=== PATIENT | male | born 1945 | race Caucasian/White ===

== ENCOUNTER 2018-04-04 12:46 | Emergency (ER) | payer OTHER ==
[2018-04-04 13:32] LABS: Absolute Lymphocytes (CBC) 1.8 K/uL (0.7-4.9); Absolute Monocytes 0.6 K/uL (0.1-1.3); Absolute Neutrophil 6.8 K/uL (1.8-8.0); Basophils % 0.6 % (0-1.3); Eosinophils % 2.7 % (0-4.4); Hematocrit 41.6 % (39.6-49.0); Lymphocytes % 18.6 % (15.3-44.8); MPV 7.5 fL (7.6-11.3)
--- NOTE | 2018-04-04 13:32 | RAD REPORT ---
EXAM DESCRIPTION: Evangelist Single View04/04/2018 1:21 pm CLINICAL HISTORY: Chest pain COMPARISON: none FINDINGS: The lungs appear clear of acute infiltrate. The heart is normal size IMPRESSION: No acute abnormalities displayed If patient's symptoms persist PA and lateral chest series recommended
[2018-04-04 13:57] LABS: ALT/SGPT 42 U/L (12-78); AST/SGOT 31 U/L (15-37); Albumin 3.6 g/dL (3.4-5.0); Alkaline Phosphatase 134 U/L (45-117); BUN Blood Urea Nitrogen 12 mg/dL (7-18); Bicarbonate 31 mmol/L (21-32); Bilirubin Direct 0.1 mg/dL (0-0.2); Bilirubin Total 0.3 mg/dL (0.2-1.0); Glucose Level 78 mg/dL (74-106); Magnesium 1.7 mg/dL (1.8-2.4); NT PRO-BNP 39 pg/mL (<125); Potassium 4.4 mmol/L (3.5-5.1); Protein, Total 7.6 g/dL (6.4-8.2); Sodium Level 143 mmol/L (136-145); Troponin (Emerg Dept Use Only) < 0.02 ng/mL (0.0-0.045)
[2018-04-04 14:12] LABS: Urine Blood NEGATIVE (NEG); Urine Glucose NEGATIVE (NEG); Urine Protein NEGATIVE (NEG); Urine pH 7.5 (5.0-7.0)
--- NOTE | 2018-04-04 14:33 | EDPHYS ---
Physician Documentation [facility] Name: Richard Artis Age: 72 yrs Sex: Male : 1945 Arrival Date: 04/04/2018 Time: 12:50 Bed 6 Private MD: ED Physician Jose Angel Alonso HPI: 04/04 13:00 This 72 yrs old Male presents to ER via EMS with complaints of Chest Pain > pm1 31 y/o. 13:00 The patient or guardian reports chest pain that is located primarily in the anterior pm1 aspect of left upper chest. Onset: 2 week(s) ago. The pain does not radiate. Associated signs and symptoms: Pertinent negatives: abdominal pain, cough, diaphoresis, dizziness, headache, nausea, shortness of breath, vomiting. The chest pain is described as muscle twitching/cramping. Duration: The patient or guardian reports multiple episodes, that have now resolved. Severity of pain: in the emergency department the pain has resolved is a 0 / 10. The patient has been recently seen by a physician: the patient's primary care provider, for apparently unrelated complaints, medication refill. Patient with left sided chest pain for the past two weeks that is improved with thumping his chest with right hand. Historical: - Allergies: 14:13 PENICILLINS; aj 14:13 Sulfa (Sulfonamide Antibiotics); aj - Home Meds: 14:13 amlodipine 10 mg tab 1 tab once daily [Active]; atorvastatin 40 mg oral tab 1 tab once aj daily [Active]; cyclobenzaprine 10 mg Oral tab nightly [Active]; diclofenac sodium 50 mg oral TbEC 1 tab 3 times per day [Active]; duloxetine 40 mg oral cpDR 2 caps once daily [Active]; finasteride 5 mg oral tab 1 tab once daily [Active]; gabapentin 300 mg oral cap 3 caps 3 times per day [Active]; hydralazine 25 mg Oral tab three times a day [Active]; hydroxyzine HCl 25 mg Oral tab 1 tab nightly [Active]; Insulin Glargine Sub-Q [Active]; Novolog 100 unit/mL Sub-Q soln [Active]; lisinopril 40 mg Oral tab 1 tab once daily [Active]; metformin 850 mg Oral tab 1 tab 3 times per day [Active]; metoprolol tartrate 50 mg Oral tab 1 tab 2 times per day [Active]; omeprazole 20 mg Oral cpDR 1 cap once daily [Active]; polyethylene glycol 3350 17 gram/dose oral powd once daily [Active]; tamsulosin 0.4 mg oral cp24 1 cap once daily [Active]; aspirin 81 mg Oral TbEC 1 tab once daily [Active]; - PMHx: 14:13 GERD; BPH; constipation; PTSD; Chronic pain; Diabetes - IDDM; Hypertension; Depression; aj Hidradenitis Suppurativa; Neuropathy; - Immunization history:: Adult Immunizations up to date. - Social history:: Smoking status: Patient uses tobacco products, smokes one-half pack cigarettes per day. - Ebola Screening: : Patient negative for fever greater than or equal to 101.5 degrees Fahrenheit, and additional compatible Ebola Virus Disease symptoms Patient denies exposure to infectious person Patient denies travel to an Ebola-affected area in the 21 days before illness onset No symptoms or risks identified at this time. ROS: 15:00 Constitutional: Negative for fever, chills, and weight loss, Eyes: Negative for injury, pm1 pain, redness, and discharge, ENT: Negative for injury, pain, and discharge, Neck: Negative for injury, pain, and swelling. 15:00 Respiratory: Negative for shortness of breath, cough, wheezing, and pleuritic chest pain, Abdomen/GI: Negative for abdominal pain, nausea, vomiting, diarrhea, and constipation, Back: Negative for injury and pain, : Negative for injury, bleeding, discharge, and swelling, MS/Extremity: Negative for injury and deformity, Skin: Negative for injury, rash, and discoloration, Neuro: Negative for headache, weakness, numbness, tingling, and seizure. 15:00 Cardiovascular: Positive for chest pain, Negative for edema, orthopnea, palpitations. Exam: 15:00 Constitutional: This is a well developed, well nourished patient who is awake, alert, pm1 and in no acute distress. Head/Face: Normocephalic, atraumatic. Eyes: Pupils equal round and reactive to light, extra-ocular motions intact. Lids and lashes normal. Conjunctiva and sclera are non-icteric and not injected. Cornea within normal limits. Periorbital areas with no swelling, redness, or edema. ENT: Nares patent. No nasal discharge, no septal abnormalities noted. Tympanic membranes are normal and external auditory canals are clear. Oropharynx with no redness, swelling, or masses, exudates, or evidence of obstruction, uvula midline. Mucous membranes moist. Neck: Trachea midline, no thyromegaly or masses palpated, and no cervical lymphadenopathy. Supple, full range of motion without nuchal rigidity, or vertebral point tenderness. No Meningismus. 15:00 Cardiovascular: Regular rate and rhythm with a normal S1 and S2. No gallops, murmurs, or rubs. Normal PMI, no JVD. No pulse deficits. Respiratory: Lungs have equal breath sounds bilaterally, clear to auscultation and percussion. No rales, rhonchi or wheezes noted. No increased work of breathing, no retractions or nasal flaring. Abdomen/GI: Soft, non-tender, with normal bowel sounds. No distension or tympany. No guarding or rebound. No evidence of tenderness throughout. Back: No spinal tenderness. No costovertebral tenderness. Full range of motion. Skin: Warm, dry with normal turgor. Normal color with no rashes, no lesions, and no evidence of cellulitis. MS/ Extremity: Pulses equal, no cyanosis. Neurovascular intact. Full, normal range of motion. 15:00 Chest/axilla: Inspection: normal, Palpation: tenderness, that is mild, of the anterior aspect of left upper chest, that totally reproduces the patient's complaints. 15:00 Neuro: Orientation: is normal, Motor: is normal, moves all fours, Gait: is steady, at a normal pace, without difficulty. Vital Signs: 12:53 BP 145 / 80; Pulse 77; Resp 19; Temp 97.7; Pulse Ox 100% on R/A; Pain 6/10; sg 14:13 BP 147 / 73; Pulse 56; Resp 20; Pulse Ox 95% on R/A; aj MDM: 12:52 Patient medically screened. pm1 14:31 Data reviewed: vital signs. Data interpreted: Pulse oximetry: on room air is 100 %. pm1 Interpretation: normal. Counseling: I had a detailed discussion with the patient and/or guardian regarding: the historical points, exam findings, and any diagnostic results supporting the discharge/admit diagnosis, lab results, radiology results, the need for outpatient follow up, to return to the emergency department if symptoms worsen or persist or if there are any questions or concerns that arise at home. 04/04 12:53 Order name: Basic Metabolic Panel; Complete Time: 14:02 pm1 04/04 12:53 Order name: CBC with Diff; Complete Time: 13:54 pm1 04/04 12:53 Order name: LFT's; Complete Time: 14:02 pm1 04/04 12:53 Order name: Magnesium; Complete Time: 14:02 pm1 04/04 12:53 Order name: NT PRO-BNP; Complete Time: 14:02 pm1 04/04 12:53 Order name: PT-INR; Complete Time: 14:21 pm1 04/04 12:53 Order name: Troponin (emerg Dept Use Only); Complete Time: 14:02 pm1 04/04 12:53 Order name: XRAY Chest (1 view); Complete Time: 13:54 pm1 04/04 12:53 Order name: EKG; Complete Time: 12:54 pm1 04/04 12:53 Order name: Cardiac monitoring; Complete Time: 13:35 pm1 04/04 12:53 Order name: EKG - Nurse/Tech; Complete Time: 13:35 pm1 04/04 12:53 Order name: IV Saline Lock; Complete Time: 13:35 pm1 04/04 13:37 Order name: Urine Dipstick--Ancillary (enter results); Complete Time: 14:21 eb 04/04 14:28 Order name: Glucose, Ancillary Testing; Complete Time: 14:31 EDMS 04/04 12:53 Order name: Labs collected and sent; Complete Time: 13:35 pm1 04/04 12:53 Order name: O2 Per Protocol; Complete Time: 13:35 pm1 04/04 12:53 Order name: O2 Sat Monitoring; Complete Time: 13:35 pm1 Administered Medications: No medications were administered Disposition: 04/04/18 14:32 Discharged to Home. Impression: Chest pain, unspecified. - Condition is Stable. - Discharge Instructions: Nonspecific Chest Pain. - Medication Reconciliation Form, Thank You Letter form. - Follow up: Emergency Department; When: As needed; Reason: Worsening of condition. Follow up: Private Physician; When: 2 - 3 days; Reason: Recheck today's complaints, Continuance of care, Re-evaluation by your physician. - Problem is new. - Symptoms have improved. Addendum: 04/07/2018 07:48 Co-signature as Attending Physician, Jose Angel Alonso MD I agree with the assessment and k dr plan of care. Signatures: Dispatcher [employer] EDMS Sam Hou RN RN sg Myers, Amanda, RN RN aj Rittger, Kevin, MD MD [facility] Augusto Ochoa, LIFTS AND CRANES INSPECTOR LIFTS AND CRANES INSPECTOR pm1 Corrections: (The following items were deleted from the chart) 04/04 14:49 14:32 04/04/2018 14:32 Discharged to Home. Impression: Chest pain, unspecified. sg Condition is Stable. Forms are Medication Reconciliation Form, Thank You Letter, Antibiotic Education, Prescription Opioid Use. Follow up: Emergency Department; When: As needed; Reason: Worsening of condition. Follow up: Private Physician; When: 2 - 3 days; Reason: Recheck today's complaints, Continuance of care, Re-evaluation by your physician. Problem is new. Symptoms have improved. pm1
--- NOTE | 2018-04-04 14:33 | ER ---
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 Transition of care: patient was not received from another setting of care. Onset of symptoms was April 04, 2018. Risk Assessment: Do you want to hurt yourself or someone else? Patient reports no desire to harm self or others. Initial Sepsis Screen: Does the patient meet any 2 criteria? No. Patient's initial sepsis screen is negative. Does the patient have a suspected source of infection? No. Patient's initial sepsis screen is negative. Care prior to arrival: None. 12:51 Method Of Arrival: EMS: [facility] 12:51 Acuity: JOANN 3 sg Historical: - Allergies: 14:13 PENICILLINS; aj 14:13 Sulfa (Sulfonamide Antibiotics); aj - Home Meds: 14:13 amlodipine 10 mg tab 1 tab once daily [Active]; atorvastatin 40 mg oral tab 1 tab once aj daily [Active]; cyclobenzaprine 10 mg Oral tab nightly [Active]; diclofenac sodium 50 mg oral TbEC 1 tab 3 times per day [Active]; duloxetine 40 mg oral cpDR 2 caps once daily [Active]; finasteride 5 mg oral tab 1 tab once daily [Active]; gabapentin 300 mg oral cap 3 caps 3 times per day [Active]; hydralazine 25 mg Oral tab three times a day [Active]; hydroxyzine HCl 25 mg Oral tab 1 tab nightly [Active]; Insulin Glargine Sub-Q [Active]; Novolog 100 unit/mL Sub-Q soln [Active]; lisinopril 40 mg Oral tab 1 tab once daily [Active]; metformin 850 mg Oral tab 1 tab 3 times per day [Active]; metoprolol tartrate 50 mg Oral tab 1 tab 2 times per day [Active]; omeprazole 20 mg Oral cpDR 1 cap once daily [Active]; polyethylene glycol 3350 17 gram/dose oral powd once daily [Active]; tamsulosin 0.4 mg oral cp24 1 cap once daily [Active]; aspirin 81 mg Oral TbEC 1 tab once daily [Active]; - PMHx: 14:13 GERD; BPH; constipation; PTSD; Chronic pain; Diabetes - IDDM; Hypertension; Depression; aj Hidradenitis Suppurativa; Neuropathy; - Immunization history:: Adult Immunizations up to date. - Social history:: Smoking status: Patient uses tobacco products, smokes one-half pack cigarettes per day. - Ebola Screening: : Patient negative for fever greater than or equal to 101.5 degrees Fahrenheit, and additional compatible Ebola Virus Disease symptoms Patient denies exposure to infectious person Patient denies travel to an Ebola-affected area in the 21 days before illness onset No symptoms or risks identified at this time. Screenin:14 Abuse screen: Denies threats or abuse. Denies injuries from another. Nutritional aj screening: No deficits noted. Tuberculosis screening: No symptoms or risk factors identified. Fall Risk None identified. Assessment: 14:00 General: Appears in no apparent distress. comfortable, Behavior is calm, cooperative, aj appropriate for age. Pain: Complains of pain in chest Pain does not radiate. Pain began suddenly, 30 min ago. Neuro: Level of Consciousness is awake, alert, obeys commands, Oriented to person, place, time, situation, Appropriate for age. Cardiovascular: Reports chest pain, Capillary refill < 3 seconds in bilateral fingers Patient's skin is warm and dry. Rhythm is regular. Respiratory: Reports cough that is Airway is patent Respiratory effort is even, unlabored, Respiratory pattern is regular, symmetrical. Derm: Skin is intact, is healthy with good turgor, Skin is pink, warm \\T\\ dry. normal. Vital Signs: 12:53 BP 145 / 80; Pulse 77; Resp 19; Temp 97.7; Pulse Ox 100% on R/A; Pain 6/10; sg 14:13 BP 147 / 73; Pulse 56; Resp 20; Pulse Ox 95% on R/A; aj ED Course: 12:50 Patient arrived in ED. sg 12:52 Augusto Ochoa NP is PHCP. pm1 12:52 Jose Angel Alonso MD is Attending Physician. pm1 12:53 Triage completed. sg 12:53 Arm band placed on. sg 13:15 Missed attempt(s): 20 gauge in right forearm. Bleeding controlled, band aid applied, dh3 catheter tip intact. 13:17 EKG done, by earth science technician. reviewed by Augusto Ochoa NP. [facility] 13:17 Missed attempt(s): 22 gauge in right hand. Bleeding controlled, band aid applied, dh3 catheter tip intact. 13:20 Initial lab(s) drawn, by tx, sent to lab. Inserted saline lock: 22 gauge in left sg forearm, using aseptic technique. Blood collected. 13:21 XRAY Chest (1 view) In Process Unspecified. EDMS 13:30 Tabby Morales, RN is Primary Nurse. aj 13:33 Urine collected: clean catch specimen, clear. 3 14:14 Patient has correct armband on for positive identification. 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 Pulse aj ox on. NIBP on. 14:14 Patient maintains SpO2 saturation greater than 95% on room air. aj 14:50 No provider procedures requiring assistance completed. IV discontinued, intact, aj bleeding controlled, No redness/swelling at site. Pressure dressing applied. Administered Medications: No medications were administered Outcome: 14:32 Discharge ordered by MD. pm1 14:49 Patient left the ED. sg 14:50 Discharged to home ambulatory. aj 14:50 Condition: good 14:50 Discharge instructions given to patient, Instructed on discharge instructions, follow up and referral plans. Demonstrated understanding of instructions, follow-up care, medications. Signatures: Dispatcher [employer] EDMS Sam Hou RN RN sg Myers, Amanda, Augusto Dickinson RN, NP NAPHTHALENE OPERATOR HELPER pm1 Symone Hernandez 3 Tierra Ross [facility]
--- NOTE | 2018-04-04 16:17 | EKG ---
Test Date: 2018-04-04 Test Time: 13:01:29 Inside Channel Account Manager: SHEYLA MEASUREMENT RESULTS: Intervals: Rate: 67 PA: 164 QRSD: 142 QT: 470 QTc: 496 Cecil: P: 20 PA: 164 QRS: -62 T: 4 INTERPRETIVE STATEMENTS: Sinus rhythm with premature atrial complexes Left axis deviation Right bundle branch block Minimal voltage criteria for LVH, may be normal variant Abnormal ECG No previous ECG available for comparison Electronically Signed On 04-04-18 16:16:32 PRODUCTION EDITOR by Heladio Duggan
== END 2018-04-04 14:49 | disposition home or self-care (01) ==
LOC: ER 12:46
DX: R07.9 Chest pain, unspecified (principal); F17.210 Nicotine dependence, cigarettes, uncomplicated; I10 Essential (primary) hypertension; E11.9 Type 2 diabetes mellitus without complications; F43.10 Post-traumatic stress disorder, unspecified; F32.9 Major depressive disorder, single episode, unspecified; Z79.82 Long term (current) use of aspirin; Z79.4 Long term (current) use of insulin; Z88.0 Allergy status to penicillin; Z88.2 Allergy status to sulfonamides
CPT/HCPCS: 36415; 71045; 80048; 80076; 81003; 82962; 83735; 83880; 84484; 85025; 85610; 93005; 99285

== ENCOUNTER 2023-11-10 03:08 | Inpatient (IN) | payer OTHER ==
[2023-11-10] MEDS ORDERED: NITROGLYCERIN 0.4 MG/TAB SL ONE (03:25)
[2023-11-10 03:46] LABS: PT Prothrombin Time 11.4 SECONDS (9.4-12.5); Protime INR 1.02
[2023-11-10 03:48] LABS: Absolute Eosinophils 1.7 K/uL (0-0.5); Absolute Lymphocytes (CBC) 2.6 K/uL (0.7-4.9); Absolute Monocytes 0.6 K/uL (0.1-1.3); Absolute Neutrophil 4.1 K/uL (1.8-8.0); Basophils % 0.5 % (0-1.3); Eosinophils % 18.6 % (0-4.4); Hematocrit 42.5 % (39.6-49.0); Lymphocytes % 28.9 % (15.3-44.8); MCH 29.9 pg (27.0-35.0); MCHC 32.8 g/dL (32.0-36.0); MCV 91.1 fL (80-100); Monocytes % 6.8 % (3.3-12.3); Neutrophils % 45.2 % (41.7-73.7); Platelets 183 thou/uL (152-406); RBC Red Blood Cell Count 4.67 M/uL (4.33-5.43); Red Cell Distribution Width 16.1 % (12.1-15.2)
[2023-11-10 03:59] LABS: ALT/SGPT 37 U/L (16-61); AST/SGOT 44 U/L (15-37); Albumin 3.1 g/dL (3.4-5.0); Albumin/Globulin Ratio 0.8 (1.1-1.8); Alkaline Phosphatase 145 U/L (45-117); Anion Gap 12.6 mEq/L (5.0-15.0); BUN Blood Urea Nitrogen 30 mg/dL (7-18); Bicarbonate 19 mEq/L (21-32); Bilirubin Total 0.3 mg/dL (0.2-1.0); Globulin 4.1 g/dL (2.3-3.5); Glomerular Filtration Rate 49 ml/min (=/>90); Glucose Level 106 mg/dL (74-106); NT PRO-BNP 862 pg/mL (<450); Potassium 4.6 mEq/L (3.5-5.1); Protein, Total 7.2 g/dL (6.4-8.2); Sodium Level 139 mEq/L (136-145)
[2023-11-10 04:05] LABS: Bilirubin Direct < 0.2 mg/dL (0-0.2); Bilirubin Indirect, Calculated 0.1 mg/dL (0.2-0.8)
[2023-11-10 04:07] LABS: Troponin High Sensitivity 2975.3 pg/mL (<58.9)
[2023-11-10] MEDS ORDERED: HEPARIN/D5W 25,000 UNIT/500 ML BAG IV ONE (04:23)
[2023-11-10] MEDS ORDERED: HEPARIN 5000 UNIT/ML 1 ML VIAL ONE (04:23)
[2023-11-10 04:32] LABS: Blood Morphology Comment NOT SEEN (NOT SEEN); Platelet Estimate ADEQ; White Blood Cell Scan OK (OK)
[2023-11-10] MEDS ORDERED: ACETAMINOPHEN 500 MG TAB PO PRN (04:38)
[2023-11-10] MEDS ORDERED: ONDANSETRON 4 MG/2 ML VIAL IV PRN (04:38)
[2023-11-10] MEDS ORDERED: NITROGLYCERIN 0.4 MG/TAB SL PRN (04:38)
--- NOTE | 2023-11-10 04:49 | EDPHYS ---
Physician Documentation [facility] Name: Richard Artis Age: 77 yrs Sex: Male : 1945 Arrival Date: 11/10/2023 Time: 03:08 Bed 8 Private MD: ED Physician Raymond Aggarwal HPI: 11/09 03:47 This 77 yrs old Male presents to ER via Ambulatory with complaints of Chest Pain. rt 03:47 Patient presents to the ED with substernal chest pain rating to the jaw started about 1 rt hour prior to arrival. Patient denies aggravating alleviating factors. Denies other acute complaints, symptoms are moderate in severity.. Historical: - Allergies: 03:37 PENICILLINS; vc1 03:37 Sulfa (Sulfonamide Antibiotics); vc1 - PMHx: 03:37 BPH; Chronic pain; constipation; Depression; Diabetes - IDDM; GERD; Hidradenitis vc1 Suppurativa; Hypertension; neuropathy; PTSD; - Immunization history:: Client reports receiving the 2nd dose of the Covid vaccine. - Infectious Disease History:: Denies. - Social history:: Smoking status: Patient reports the use of cigarette tobacco products, smokes one pack cigarettes per day. - Family history:: not pertinent. ROS: 03:47 Constitutional: Negative for fever, chills, and weight loss, Respiratory: Negative for rt shortness of breath, cough, wheezing, and pleuritic chest pain, Abdomen/GI: Negative for abdominal pain, nausea, vomiting, diarrhea, and constipation, MS/Extremity: Negative for injury and deformity, Skin: Negative for injury, rash, and discoloration, Neuro: Negative for headache, weakness, numbness, tingling, and seizure, 03:47 Cardiovascular: Positive for chest pain, Negative for edema, Exam: 03:11 ECG was reviewed by the Attending Physician. rt 03:47 Constitutional: This is a well developed, well nourished patient who is awake, alert, rt and in no acute distress. Head/Face: Normocephalic, atraumatic. Chest/axilla: Normal chest wall appearance and motion. Nontender with no deformity. No lesions are appreciated. Cardiovascular: Regular rate and rhythm with a normal S1 and S2. No gallops, murmurs, or rubs. Normal PMI, no JVD. No pulse deficits. Respiratory: Lungs have equal breath sounds bilaterally, clear to auscultation and percussion. No rales, rhonchi or wheezes noted. No increased work of breathing, no retractions or nasal flaring. Abdomen/GI: Soft, non-tender, with normal bowel sounds. No distension or tympany. No guarding or rebound. No evidence of tenderness throughout. Skin: Warm, dry with normal turgor. Normal color with no rashes, no lesions, and no evidence of cellulitis. MS/ Extremity: Pulses equal, no cyanosis. Neurovascular intact. Full, normal range of motion. Neuro: Awake and alert, GCS 15, oriented to person, place, time, and situation. Cranial nerves II-XII grossly intact. Motor strength 5/5 in all extremities. Sensory grossly intact. Cerebellar exam normal. Normal gait. 03:47 ECG was reviewed by the Attending Physician. Vital Signs: 03:35 BP 156 / 11; Pulse 79; Resp 16; Temp 98; Pulse Ox 100% ; Weight 110 kg (M); Height 6 vc1 ft. 0 in. ; Pain 10/10; 04:07 BP 112 / 58; Pulse 72; Resp 16; Pulse Ox 95% on R/A; iw 05:00 BP 108 / 76; Pulse 70; Resp 16; Pulse Ox 95% ; jj7 03:35 Body Mass Index 32.89 (110.00 kg, 182.88 cm) vc1 03:35 Pain Scale: Adult vc1 MDM: 03:13 Patient medically screened. rt 05:54 Differential diagnosis: abnormal EKG, acute myocardial infarction, coronary artery rt disease congestive heart failure. HEART Score: History: Highly Suspicious (2), ECG: Non specific repolarization disturbance / LBTB / PM (1), Age: > or = 65 years (2), Risk Factors: > or = 3 Risk factors for atherosclerotic disease (2), Troponin: > or = 3 x Normal Limit (2), Total Score = 9. The patient was not given aspirin in the Emergency Department. Patient reports taking aspirin within the past 24 hours. Data reviewed: vital signs, nurses notes, lab test result(s), EKG, radiologic studies. Consideration of Admission/Observation Patient was admitted/placed on observation. Management of patient was discussed with the following: Emblem Fuser Tender: Discussed with cardiology on-call, says is okay to admit patient here, will start heparinization. I considered the following discharge prescriptions or medication management in the emergency department Medications were administered in the Emergency Department. See MAR. Independent interpretation of the following test(s) in the Emergency Department X-Ray: My interpretation is No edema seen on interpretation of x-ray images. Test considered but Not performed: CT: Low suspicion for PE, CT angiogram not indicated. Care significantly affected by the following chronic conditions: Diabetes. Counseling: I had a detailed discussion with the patient and/or guardian regarding the historical points, exam findings, and any diagnostic results supporting the discharge/admit diagnosis, lab results, radiology results, the need for further work-up and treatment in the hospital. Response to treatment: the patient's symptoms have markedly improved after treatment. 11/09 03:14 Order name: Basic Metabolic Panel; Complete Time: 04:13 rt 11/09 03:14 Order name: CBC with Diff; Complete Time: 07:00 rt 11/09 03:14 Order name: LFT's; Complete Time: 04:13 rt 11/09 03:14 Order name: Magnesium; Complete Time: 04:13 rt 11/09 03:14 Order name: NT PRO-BNP; Complete Time: 04:13 rt 11/09 03:14 Order name: PT-INR; Complete Time: 04:13 rt 11/09 03:14 Order name: Troponin HS; Complete Time: 04:13 rt 11/09 04:20 Order name: Ptt, Activated; Complete Time: 07:00 rt 11/09 04:32 Order name: CBC Smear Scan; Complete Time: 07:00 EDMS 11/09 04:45 Order name: Magnesium EDMS 11/09 04:45 Order name: Phosphorus EDMS 11/09 04:45 Order name: Urinalysis w/ reflexes EDMS 11/09 04:45 Order name: Basic Metabolic Panel EDMS 11/09 04:45 Order name: Basic Metabolic Panel EDMS 11/09 04:45 Order name: CBC with Automated Diff EDMS 11/09 04:45 Order name: CBC with Automated Diff EDMS 11/09 04:45 Order name: Lipid Profile EDMS 11/09 04:45 Order name: Lipid Profile EDMS 11/09 04:45 Order name: Troponin High Sensitivity EDMS 11/09 04:45 Order name: Troponin High Sensitivity EDMS 11/09 04:45 Order name: Troponin High Sensitivity EDMS 11/09 04:45 Order name: Troponin High Sensitivity EDMS 11/09 05:10 Order name: Hemoglobin A1c EDMS 11/09 07:40 Order name: Glucose, Ancillary Testing EDMS 11/09 08:15 Order name: Glucose, Ancillary Testing EDMS 11/09 09:16 Order name: Ptt, Activated aa5 11/09 09:41 Order name: PTT, Activated Partial Thromb EDMS 11/09 03:14 Order name: XRAY Chest (1 view) rt 11/09 05:14 Order name: Echo with Doppler EDMS 11/09 04:45 Order name: CONS Physician Consult EDMS 11/09 03:14 Order name: Cardiac monitoring; Complete Time: 03:23 rt 11/09 03:14 Order name: EKG - Nurse/Tech; Complete Time: 03:23 rt 11/09 03:14 Order name: IV Saline Lock; Complete Time: 03:27 rt 11/09 03:14 Order name: Labs collected and sent; Complete Time: 03:27 rt 11/09 03:14 Order name: O2 Per Protocol; Complete Time: 03:27 rt 11/09 03:14 Order name: O2 Sat Monitoring; Complete Time: 03:27 rt EC:11 Rate is 99 beats/min. Rhythm is regular, Normal Sinus Rhythm with No ectopy, Right rt bundle branch block, Artifact limits interpretation. Left axis deviation noted. QRS interval is normal. QT interval is normal. No Q waves. 03:17 Rate is 82 beats/min. Rhythm is regular, Normal Sinus Rhythm with No ectopy, Right rt bundle branch block. Left axis deviation noted. QRS interval is normal. QT interval is normal. No Q waves. Administered Medications: 03:27 Drug: Nitroglycerin Sublingual 0.4 mg Sublingual once; every five minute if needed x3 jj7 Route: Sublingual; 04:20 Follow up: Response: Marked relief of symptoms; Pain is decreased jj7 04:37 Drug: Heparin ([place]-Bolus No thrombolytic) - HEParin IVP 60 units/kg IVP once; Max 5000 jj7 units {Co-Signature: iw (Susana Fofana RN).} Route: IVP; Site: right antecubital; 05:43 Follow up: Response: No adverse reaction jj7 04:37 Drug: Heparin ([place] Drip) 12 units/kg/hr - ([place] [address] units, D5W IV 500 ml) IV at jj7 calculated rate Per protocol; Max initial rate 1000 units/hr {Co-Signature: charleen (Susana Fofana RN).} Route: IV; Rate: calculated rate; Site: right antecubital; Disposition: 05:54 Critical Care:. rt Disposition Summary: 11/10/23 04:48 Hospitalization Ordered Notes: Hospitalization Status: Inpatient Admission rt Provider: Prince Juan Manuel rt Condition: Serious rt Problem: new rt Symptoms: have improved rt Bed/Room Type: Standard rt Location: Telemetry/MedSurg (Inpatient)(11/10/23 10:50) [facility] Room Assignment: [facility](11/10/23 11:04) [facility] Diagnosis - Subsequent non-ST elevation (NSTEMI) myocardial infarction rt Forms: - Medication Reconciliation Form rt - SBAR form rt - Leadership Thank You Letter rt Critical care time excluding procedures: 05:54 Critical care time: Bedside Care: 30 minutes, Consultation: 5 minutes. Total time: 35 rt minutes Signatures: Dispatcher [employer] EDMS Jayy Shaw, REALTIME CAPTIONER-C REALTIME CAPTIONER-Cla1 Julia Mckoy RN RN cg Andrea Cota RN RN ja1 Nida Hernandez RN RN 1 Yovani Suazo RN RN jj7 Raymond Aggarwal MD MD rt Susana Fofana RN Corrections: (The following items were deleted from the chart) 05:28 04:48 Telemetry/MedSurg (Inpatient) rt cg 05:28 04:48 rt cg 10:50 05:28 [facility] ER HOLD cg ja1 10:50 05:28 ERHOLD- cg ja1 11:04 10:50 215 ja1 1
--- NOTE | 2023-11-10 04:49 | ER ---
Nurse's Notes [facility] Name: Richard Artis Age: 77 yrs Sex: Male : 1945 Arrival Date: 11/10/2023 Time: 03:08 Bed 8 Private MD: Diagnosis: Subsequent non-ST elevation (NSTEMI) myocardial infarction Presentation: 11/09 03:35 Chief complaint: Patient states: chest pain that started 1 hr PIT [place]. Coronavirus screen: vc1 Client denies travel out of the [place] in the last 14 days. At this time, the client does not indicate any symptoms associated with coronavirus-19. Ebola Screen: Patient negative for fever greater than or equal to 101.5 degrees Fahrenheit, and additional compatible Ebola Virus Disease symptoms Patient denies exposure to infectious person. Patient denies travel to an Ebola-affected area in the 21 days before illness onset. No symptoms or risks identified at this time. Initial Sepsis Screen: Does the patient meet any 2 criteria? No. Patient's initial sepsis screen is negative. Does the patient have a suspected source of infection? No. Patient's initial sepsis screen is negative. Risk Assessment: Do you want to hurt yourself or someone else? Patient reports no desire to harm self or others. Onset of symptoms was November 10, 2023 at 02:00. 03:35 Method Of Arrival: Ambulatory vc1 03:35 Acuity: JOANN 3 vc1 Triage Assessment: 03:39 General: Appears in no apparent distress. uncomfortable, obese, Behavior is calm, vc1 cooperative, appropriate for age. Pain: Complains of pain in chest Pain radiates to back Pain currently is 10 out of 10 on a pain scale. Quality of pain is described as sharp. EENT: No deficits noted. No signs and/or symptoms were reported regarding the EENT system. Neuro: Level of Consciousness is awake, alert, obeys commands, Oriented to person, place, time, situation, Appropriate for age. Cardiovascular: Reports chest pain, Patient's skin is warm and dry. Chest pain is described as severe, quality is clutching, is located in. Respiratory: Airway is patent Respiratory effort is even, unlabored, Respiratory pattern is regular, symmetrical, Breath sounds are clear bilaterally. GI: Abdomen is round non-distended. : No deficits noted. No signs and/or symptoms were reported regarding the genitourinary system. Derm: Skin is intact, is healthy with good turgor, Skin is dry, Skin is normal, Skin temperature is warm. Musculoskeletal: Circulation, motion, and sensation intact. Range of motion: intact in all extremities. Historical: - Allergies: 03:37 PENICILLINS; vc1 03:37 Sulfa (Sulfonamide Antibiotics); vc1 - PMHx: 03:37 BPH; Chronic pain; constipation; Depression; Diabetes - IDDM; GERD; Hidradenitis vc1 Suppurativa; Hypertension; neuropathy; PTSD; - Immunization history:: Client reports receiving the 2nd dose of the Covid vaccine. - Infectious Disease History:: Denies. - Social history:: Smoking status: Patient reports the use of cigarette tobacco products, smokes one pack cigarettes per day. - Family history:: not pertinent. Screenin:35 [facility] ED Fall Risk Assessment (Adult) History of falling in the last 3 months, vc1 including since admission No falls in past 3 months (0 pts) Confusion or Disorientation No (0 pts) Intoxicated or Sedated No (0 pts) Impaired Gait No (0 pts) Mobility Assist Device Used No (0 pt) Altered Elimination No (0 pt) Score/Fall Risk Level 0 - 2 = Low Risk Oriented to surroundings, Maintained a safe environment, Educated pt \T\ family on fall prevention, incl call for assistance when getting out of bed. Abuse screen: Denies threats or abuse. Nutritional screening: No deficits noted. Tuberculosis screening: No symptoms or risk factors identified. Assessment: 03:40 General: Appears in no apparent distress. comfortable, Behavior is calm, cooperative, jj7 appropriate for age. Pain: Complains of pain in chest Pain currently is 3 out of 10 on a pain scale. Pain: Pain began 1 hour ago. Cardiovascular: Reports chest pain. Vital Signs: 03:35 BP 156 / 11; Pulse 79; Resp 16; Temp 98; Pulse Ox 100% ; Weight 110 kg (M); Height 6 vc1 ft. 0 in. ; Pain 10/10; 04:07 BP 112 / 58; Pulse 72; Resp 16; Pulse Ox 95% on R/A; iw 05:00 BP 108 / 76; Pulse 70; Resp 16; Pulse Ox 95% ; jj7 03:35 Body Mass Index 32.89 (110.00 kg, 182.88 cm) vc1 03:35 Pain Scale: Adult vc1 ED Course: 03:13 Patient arrived in ED. gm2 03:13 Raymond Aggarwal MD is Attending Physician. rt 03:27 Basic Metabolic Panel Sent. jj7 03:28 CBC with Diff Sent. jj7 03:28 LFT's Sent. jj7 03:28 Magnesium Sent. jj7 03:28 NT PRO-BNP Sent. jj7 03:28 PT-INR Sent. jj7 03:28 Troponin HS Sent. jj7 03:34 Inserted saline lock: 20 gauge in right forearm, using aseptic technique. Blood vc1 collected. Flushed with 10 mL NS. 03:35 XRAY Chest (1 view) In Process Unspecified. EDMS 03:37 Triage completed. vc1 03:38 Arm band placed on left wrist. vc1 03:39 Patient has correct armband on for positive identification. Placed in gown. Bed in low vc1 position. Call light in reach. youth nutritional monitor on. Pulse ox on. NIBP on. 03:40 Provided Education on: USE OF CALL DUNBAR. jj7 04:48 Prince Zambrano MD is Hospitalizing Provider. rt 07:02 Report given to JAYLEEN ZIMMER. jj7 07:23 Gonzalez Nair, RN is Primary Nurse. bp 07:33 No provider procedures requiring assistance completed. Patient admitted, IV remains in bp place. Patient maintains SpO2 saturation greater than 95% on room air. Administered Medications: 03:27 Drug: Nitroglycerin Sublingual 0.4 mg Sublingual once; every five minute if needed x3 jj7 Route: Sublingual; 04:20 Follow up: Response: Marked relief of symptoms; Pain is decreased jj7 04:37 Drug: Heparin ([place]-Bolus No thrombolytic) - HEParin IVP 60 units/kg IVP once; Max 5000 jj7 units {Co-Signature: iw (Susana Fofana RN).} Route: IVP; Site: right antecubital; 05:43 Follow up: Response: No adverse reaction jj7 04:37 Drug: Heparin ([place] Drip) 12 units/kg/[place] - ([place] [address] units, D5W IV 500 ml) IV at jj7 calculated rate Per protocol; Max initial rate 1000 units/hr {Co-Signature: charleen (Susana Fofana RN).} Route: IV; Rate: calculated rate; Site: right antecubital; Medication: 03:41 VIS not applicable for this client. vc1 Outcome: 04:48 Decision to Hospitalize by Provider. rt 07:33 Admitted to ER Hold. Please see [facility] for further documentation. bp 07:33 Condition: stable 07:33 Instructed on the need for admit, 11:22 Patient left the ED. bp Signatures: Dispatcher [employer] EDMS Susana Fofana, RN Gonzalez Dooley RN RN bp Nida Hernandez RN RN vc1 Yovani Suazo RN RN jjRaymond eBrman MD MD rt Zuleyka Castro 2 Susana Fofana RN
[2023-11-10] MEDS: NA CHLORIDE 0.9% 1,000 ML IV SCH (05:07)
--- NOTE | 2023-11-10 05:07 | P.HP ---
Certification for Inpatient Patient admitted to: Inpatient With expected LOS: >2 Midnights Practitioner: I am a practitioner with admitting privileges, knowledge of patient current condition, hospital course, and medical plan of care. Services: Services provided to patient in accordance with Admission requirements found in Title 42 Section 412.3 of the Code of Federal Regulations Patient History Date of Service: 11/10/23 Reason for admission: NSTEMI History of Present Illness: And is a 77-year-old male with a past medical history of hypertension and type 2 diabetes mellitus. He presented to the ER complaining of acutely worsening left-sided chest pain radiating to his jaw. Described a 9 out of 10 chest pain that started since the day before admission only to recur today. He has noticed that the chest pain was not letting up and decided to present to the ER. He denies any palpitations, shortness of breath or lower extremity edema. Workup in the ER was significant for a troponin of more than 2500. Patient has evidence of ST depressions involving V1 through V3. He arrived in the ER slightly hypertensive with SBP of 156 mmHg. He has been started on heparin infusion. During my evaluation, his systolic blood pressure was 109. His chest pain has subsided significantly and is now 4 out of 10. Physical Examination - Physical Exam General: Mild distress HEENT: Atraumatic, Normocephalic Neck: Supple Respiratory: Clear to auscultation bilaterally, Normal air movement Cardiovascular: No edema, Normal pulses, Regular rate/rhythm, Normal S1 S2 Neurological: Normal speech - Studies Laboratory Data (last 24 hrs) 11/10/23 11/10/23 11/10/23 03:24 03:24 03:24 WBC 9.20 Hgb 14.0 Hct 42.5 Plt Count 183 PT 11.4 INR 1.02 APTT 36.6 Sodium Potassium BUN Creatinine Glucose Magnesium Total Bilirubin AST ALT Alkaline Phosphatase 11/10/23 03:24 WBC Hgb Hct Plt Count PT INR APTT Sodium 139 Potassium 4.6 BUN 30 H Creatinine 1.48 H Glucose 106 Magnesium 2.0 Total Bilirubin 0.3 AST 44 H ALT 37 Alkaline Phosphatase 145 H Assessment and Plan - Problems (Diagnosis) (1) NSTEMI (non-ST elevated myocardial infarction) Current Visit: Yes Status: Acute (2) HTN (hypertension) Current Visit: Yes Status: Acute (3) Type II diabetes mellitus Current Visit: Yes Status: Acute (4) MAISHA (acute kidney injury) Current Visit: Yes Status: Acute - Plan Assessment This is a 77-year-old male who is being admitted after he presented with chest pain. Patient's been found to have NSTEMI and is now on heparin infusion. NSTEMI MAISHA Hypertension Type 2 diabetes mellitus Plan: Admit inpatient with telemetry Continue heparin infusion as per ACS protocol Will also continue patient on aspirin, atorvastatin and supplemental oxygen Hold off beta-blockers due to borderline blood pressure Follow lipid panel and hemoglobin A1c Cardiology has been consulted by ER Will start gentle IV fluid infusion for possible coronary angiogram Patient is full code - Advance Directives Does patient have a Living Will: No Does patient have a Durable POA for Healthcare: No
[2023-11-10] MEDS: IPRATROPIUM BROM 0.5MG/2.5ML NEB SCH (07:00)
[2023-11-10] MEDS: ALBUTEROL 2.5 MG/3 ML NEB SOL NEB SCH (07:00)
[2023-11-10 07:33] VITALS: BMI 32.8
[2023-11-10] MEDS: ASPIRIN EC 81 MG TAB PO SCH (09:00)
[2023-11-10] MEDS ORDERED: METOPROLOL TAR 50 MG TAB PO SCH (09:00)
[2023-11-10] MEDS ORDERED: GLUCAGON 1 MG/VIAL IM PRN (09:06)
[2023-11-10] MEDS ORDERED: D10W 250 ML IV ONE (09:12)
[2023-11-10] MEDS: D10W 125 ML IV PRN (09:20)
[2023-11-10] MEDS ORDERED: ASPIRIN EC 81 MG TAB PO ONE (09:38)
[2023-11-10 10:01] LABS: Phosphorus 3.6 mg/dL (2.5-4.9)
--- NOTE | 2023-11-10 11:51 | P.CNS ---
Date of Consult: 11/10/23 Chief Complaint: NSTEMI History of Present Illness: Patient with PMH of HTN, DM, HLD and tobacco use, presented with chest pain left sided radiating to the back that started 2 days ago, got worse overnight, no SOB, no palpitations, no syncope. Allergies Penicillins Allergy (Verified 11/10/23 06:05) Hives/Rash Home medications list reviewed: Yes - Past Medical/Surgical History Diabetic: Yes - Social History Smoking Status: Current every day smoker Place of Residence: Home Review of Systems 10-point ROS is otherwise unremarkable Physical Examination Temp Pulse Resp BP Pulse Ox 98 F 72 15 136/80 97 11/10/23 03:35 11/10/23 08:00 11/10/23 08:00 11/10/23 08:00 11/10/23 08:00 General: Alert, In no apparent distress HEENT: Atraumatic, PERRLA, Mucous membr. moist/pink, EOMI, Sclerae nonicteric Neck: Supple, 2+ carotid pulse no bruit, No LAD, Without JVD or thyroid abnormality Respiratory: Clear to auscultation bilaterally, Normal air movement Cardiovascular: Regular rate/rhythm, Normal S1 S2 Gastrointestinal: Normal bowel sounds, No tenderness Musculoskeletal: No tenderness Integumentary: No rashes Neurological: Normal gait, Normal speech, Normal tone, Normal affect Lymphatics: No axilla or inguinal lymphadenopathy Laboratory Data (last 24 hrs) 11/10/23 11/10/23 11/10/23 03:24 03:24 03:24 WBC 9.20 Hgb 14.0 Hct 42.5 Plt Count 183 PT 11.4 INR 1.02 APTT 36.6 Sodium Potassium BUN Creatinine Glucose Magnesium Total Bilirubin AST ALT Alkaline Phosphatase 11/10/23 03:24 WBC Hgb Hct Plt Count PT INR APTT Sodium 139 Potassium 4.6 BUN 30 H Creatinine 1.48 H Glucose 106 Magnesium 2.0 Total Bilirubin 0.3 AST 44 H ALT 37 Alkaline Phosphatase 145 H - Problems (1) MAISHA (acute kidney injury) Current Visit: Yes Status: Acute Plan: gentle hydration. (2) HTN (hypertension) Current Visit: Yes Status: Acute Plan: resume patient home medications. (3) NSTEMI (non-ST elevated myocardial infarction) Current Visit: Yes Status: Acute Plan: NPO after midnight for coronary angiogram in am Heparin drip ACS protocol ASA 81 mg daily High dose statin Get Echo
[2023-11-10] MEDS ORDERED: HEPARIN/D5W 25,000 UNIT/500 ML BAG IV SCH (12:00)
--- NOTE | 2023-11-10 12:20 | P.PN ---
Date of Service: 11/10/23 Pt seen and examined. Pt is a 77yo male with past medical history of hypertension and type 2 diabetes mellitus who presents with chest pain with severity of 9/10. On admission, lab studies show troponin 2550. EKG shows ST depression in V1 and V3. At bedside, the severity of the chest pain improved to 4/10. A/P: NSTEMI: Will trend troponin (2550) Q6h. Continue heparin drip, aspirin and statin. Consulted Cardiology. Will keep pT NPO after midnight for Cardiac cath. MAISHA: Continue iVF, avoid nephrotoxins and monitor renal function. DVT ppx: SCD Code; full
[2023-11-10] MEDS: ATORVASTATIN 80 MG TAB PO SCH (21:18)
[2023-11-10] MEDS: lisinopriL 20 MG TAB PO SCH (21:18)
[2023-11-10] MEDS: HYDROCODONE/APAP 7.5/325 MG TAB PO PRN (21:19)
[2023-11-10] MEDS: GABAPENTIN 300 MG CAP PO SCH (21:37)
[2023-11-11 04:40] LABS: Anion Gap 9.5 mEq/L (5.0-15.0); Potassium 4.5 mEq/L (3.5-5.1)
[2023-11-11 04:55] LABS: Absolute Eosinophils 1.1 K/uL (0-0.5); Absolute Lymphocytes (CBC) 1.9 K/uL (0.7-4.9); Absolute Monocytes 0.7 K/uL (0.1-1.3); Basophils % 0.5 % (0-1.3); Eosinophils % 14.4 % (0-4.4); Hematocrit 40.5 % (39.6-49.0); Hemoglobin 13.1 g/dL (13.6-17.9); Lymphocytes % 24.9 % (15.3-44.8); MCH 29.6 pg (27.0-35.0); MCHC 32.3 g/dL (32.0-36.0); MCV 91.5 fL (80-100); MPV 7.2 fL (7.6-11.3); Monocytes % 8.7 % (3.3-12.3); Neutrophils % 51.5 % (41.7-73.7); Platelets 186 thou/uL (152-406); RBC Red Blood Cell Count 4.42 M/uL (4.33-5.43); Red Cell Distribution Width 16.6 % (12.1-15.2)
[2023-11-11] MEDS: PANTOPRAZOLE 40MG TABLET PO SCH (05:19)
[2023-11-11] MEDS ORDERED: HEPARIN 10,000 UNIT/10 ML VIAL IV ONE (06:37)
[2023-11-11] MEDS ORDERED: LIDOCAINE 1% 20 ML MDV ONE (06:37)
[2023-11-11] MEDS ORDERED: MIDAZOLAM HCL 2 MG/2 ML INJ ONE (06:37)
[2023-11-11] MEDS ORDERED: HEPA 1000U/500MLS 2,000 UNIT/1,000 ML BAG IV ONE (06:37)
[2023-11-11] MEDS ORDERED: FENTANYL CITR 100 MCG/2 ML ONE (06:38)
[2023-11-11] MEDS ORDERED: CLOPIDOGREL 75 MG TABLET ONE (06:38)
[2023-11-11] MEDS ORDERED: HEPARIN 5000 UNIT/ML 1 ML VIAL ONE (06:38)
[2023-11-11] MEDS ORDERED: NA CHLORIDE 0.9% 0 ML ONE (06:38)
[2023-11-11] MEDS ORDERED: ATROPINE SULF 1 MG/10 ML SYR IV ONE (06:38)
[2023-11-11] MEDS ORDERED: ASPIRIN 325 MG TAB ONE (06:39)
[2023-11-11] MEDS ORDERED: TICAGRELOR 90 MG TABLET PO ONE (06:39)
[2023-11-11] MEDS ORDERED: NITROGLYCERIN/D5W 50 MG/250 ML BTL IV ONE (06:40)
--- NOTE | 2023-11-11 08:27 | P.PN ---
Subjective Date of Service: 11/11/23 Chief Complaint: NSTEMI Subjective: No new changes, No C/O voiced, Tolerating diet, Ambulating, Improving Review of Systems 10-point ROS is otherwise unremarkable Physical Examination - Vital Signs Temperature: 97.9 F Blood Pressure: 123/44 Pulse: 67 Respirations: 16 Pulse Ox (%): 96 - Physical Exam General: Alert, In no apparent distress HEENT: Atraumatic, PERRLA, EOMI Neck: Supple, JVD not distended Respiratory: Clear to auscultation bilaterally, Normal air movement Cardiovascular: Regular rate/rhythm, Normal S1 S2 Gastrointestinal: Normal bowel sounds, No tenderness Musculoskeletal: No tenderness Integumentary: No rashes Neurological: Normal speech, Normal tone, Normal affect Lymphatics: No axilla or inguinal lymphadenopathy - Studies Medications List Reviewed: Yes Assessment And Plan - Current Problems (Diagnosis) (1) MAISHA (acute kidney injury) Current Visit: Yes Status: Acute Plan: gentle hydration. (2) HTN (hypertension) Current Visit: Yes Status: Acute Plan: resume patient home medications. 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 Heparin drip ACS protocol ASA 81 mg daily High dose statin Get Echo
[2023-11-11 10:04] VITALS: O2SAT 98
[2023-11-11] MEDS ORDERED: HEPARIN/D5W 25,000 UNIT/500 ML BAG IV SCH (12:00)
[2023-11-11 12:20] VITALS: BP 163/68; TEMP 98
--- NOTE | 2023-11-11 12:50 | EKG ---
Test Date: 2023-11-10 Test Time: 03:17:59 Cnc Manager: JEOVANY MEASUREMENT RESULTS: Intervals: Rate: 82 [place]: QRSD: 154 QT: 422 QTc: 493 [place]: P: [place]: QRS: -68 T: 25 INTERPRETIVE STATEMENTS: Sinus rhythm Left axis deviation Right bundle branch block Minimal voltage criteria for LVH, may be normal variant Abnormal ECG Compared to ECG 04/04/2018 13:01:29 Atrial premature complex(es) no longer present Electronically Signed On 11-11-23 12:47:40 CDT by Zion Lopez
--- NOTE | 2023-11-11 14:48 | P.DS ---
Admission Date: 11/10/23 Discharge Date: 11/11/23 Disposition: TRANSFER TO [facility] Discharge Condition: FAIR Reason for Admission: NSTEMI Brief History of Present Illness: Pt is a 77-year-old male with a past medical history of hypertension and type 2 diabetes mellitus. He presented to the ER complaining of acutely worsening left-sided chest pain radiating to his jaw. Described a 9 out of 10 chest pain that started since the day before admission only to recur today. He has noticed that the chest pain was not letting up and decided to present to the ER. He denies any palpitations, shortness of breath or lower extremity edema. Workup in the ER was significant for a troponin of more than 2500. Patient has evidence of ST depressions involving V1 through V3. He arrived in the ER slightly hypertensive with SBP of 156 mmHg. He has been started on heparin infusion. During my evaluation, his systolic blood pressure was 109. His chest pain has subsided significantly and is now 4 out of 10. Hospital Course: Pt is a 77yo male with past medical history of hypertension and type 2 diabetes mellitus who presented with left sided chest pain radiating to his jaw. The chest pain persisted and pt came to the ER for evaluation. On admission, lab studies showed troponin of more than 2500. There was ST depressions involving V1 through V3 leads on EKG. Pt was admitted for NSTEMI. We gave heparin drip and other cardiac meds. Pt was made NPO for cardiac cath which showed multivessel CAD . Pt was transferred to [place] for CABG. He was in NAD prior to discharge. Vital Signs/Physical Exam: Temp Pulse Resp BP Pulse Ox 98.0 F 77 16 163/68 H 98 11/11/23 12:00 11/11/23 12:00 11/11/23 13:52 11/11/23 12:00 11/11/23 13:52 Laboratory Data at Discharge: WBC 7.80 thou/uL (4.3-10.9) 11/11/23 04:02 Hgb 13.1 g/dL (13.6-17.9) L 11/11/23 04:02 Hct 40.5 % (39.6-49.0) 11/11/23 04:02 Plt Count 186 thou/uL (152-406) 11/11/23 04:02 PT 11.4 SECONDS (9.4-12.5) 11/10/23 03:24 INR 1.02 11/10/23 03:24 APTT 50.1 SECONDS (24.3-36.9) H 11/11/23 04:02 Sodium 144 mEq/L (136-145) D 11/11/23 04:02 Potassium 4.5 mEq/L (3.5-5.1) 11/11/23 04:02 BUN 21 mg/dL (7-18) H 11/11/23 04:02 Creatinine 1.03 mg/dL (0.70-1.30) 11/11/23 04:02 Glucose 51 mg/dL (74-106) L* 11/11/23 04:02 Phosphorus 3.6 mg/dL (2.5-4.9) 11/10/23 09:22 Magnesium 2.0 mg/dL (1.6-2.4) 11/10/23 09:22 Total Bilirubin 0.3 mg/dL (0.2-1.0) 11/10/23 03:24 AST 44 U/L (15-37) H 11/10/23 03:24 ALT 37 U/L (16-61) 11/10/23 03:24 Alkaline Phosphatase 145 U/L (45-117) H 11/10/23 03:24 Triglycerides 109 mg/dL (<150) 11/11/23 04:02 Cholesterol 152 mg/dL (<200) 11/11/23 04:02 HDL Cholesterol 38 mg/dL (40-60) L 11/11/23 04:02 Cholesterol/HDL Ratio 4.00 11/11/23 04:02 Home Medications: Gabapentin 900 mg PO TID 11/10/23 Hydrocodone Bit/Acetaminophen [Hydrocodon-Acetaminoph 7.5-325] 1 each PO BID PRN 11/10/23 Lisinopril [Zestril] 40 mg PO BID 11/10/23 Omeprazole 20 mg PO DAILY 11/10/23 Physician Discharge Instructions: Inpatient transfer to [place] for CABG evaluation Diet: AHA Activity: Fall precautions Followup: Thomas Gutierrez MD [ACTIVE - CAN ADMIT] - 1-2 Weeks Giovanny Estrada DO [Primary Care Provider] - 1-2 Weeks
--- NOTE | 2023-11-11 15:00 | RAD REPORT ---
CLINICAL HISTORY: CHEST PAIN COMPARISON: None. TECHNIQUE: XR CHEST 1 VIEW 11/10/2023 3:14 AM CDT FINDINGS: Cardiac silhouette is normal in size. Lungs are clear without consolidation, atelectasis, mass or minerva ma. There is no pleural effusion. There is no pneumothorax. There are no acute osseous findings. IMPRESSION: Clear lungs. Electronically signed by: Dayton Herrera MD 11/10/2023 03:42 AM CDT RP Transcribed Date/Time: 11/11/2023 2:59 PM
--- NOTE | 2023-11-12 11:29 | OP ---
Date of Procedure: 11/11/2023 Surgeon: Thomas Gutierrez Procedures Performed: 1.Left heart catheterization. 2.Selective coronary angiogram. Indication For Procedure: [id number] NC. Complications: None. Estimated Blood Loss: Less than 50 cc. Access: Right radial, closed by TR band. Sedation Time: 20 minutes with 1 of Versed and 25 of fentanyl. Description Of Procedure: After risks and benefits and alternatives were explained to the patient, p rajeev agreed to proceed with the procedure and signed informed consent. The patient was brought [facility] to the freezer laboratory technician, prepped and draped in sterile fashion. Time-out was performed. Sedation was admi nistered. Next, an ultrasound-guided right radial access was obtained. Gill 4.0 catheter was advan maribel over a J-wire to the LV cavity. LVEDP was obtained. Pullback did not show any gradient. The sa me catheter was used for selective angiogram of the left and right coronary systems and selective ang iogram of the CHARLES artery. At the end of the procedure, catheter was removed over a J-wire, sheath w as removed. TR band was applied. The patient was moved back to recovery in stable condition. Findings: 1.Left main; ostial 30% to 50% disease. 2.LAD; ostial 70% disease with proximal mild luminal irregularities. This was followed by mid 80% d isease and mild luminal irregularities with distal 70% disease. 3.D1 normal. 4.D2; proximal 70% disease. 5.Left circ; mild luminal irregularities. 6.OM1; mid 99% disease. 7.RCA; very tortuous, mid 95% disease, then distal 70% to 80% disease. 8.RPDA; mild luminal irregularities. 9.Left subclavian/CHARLES patent. 10.LVEDP 10 mmHg. Assessment And Plan: Significant LAD, diagonal, OM1, RCA disease. The plan will be transfer for inpatient CABG evaluation. PAMELA/ROBIN Voice ID: [id number] Report ID: [id number]
--- NOTE | 2023-11-14 12:27 | EKG ---
Test Date: 2023-11-10 Test Time: 03:11:44 Charge Poster: CHARISSA MEASUREMENT RESULTS: Intervals: Rate: 99 RI: QRSD: 142 QT: 414 QTc: 531 [place]: P: RI: QRS: -65 T: 42 INTERPRETIVE STATEMENTS: Sinus rhythm with premature ventricular complexes and fusion complexes Left axis deviation Right bundle branch block Abnormal ECG Compared to ECG 04/04/2018 13:01:29 Fusion complex(es) now present Ventricular premature complex(es) now present Sinus rhythm no longer present Atrial premature complex(es) no longer present Left ventricular hypertrophy no longer present Electronically Signed On 11-14-23 12:20:30 CDT by Thomas Gutierrez
== END 2023-11-11 16:02 | disposition short-term general hospital (02) | DRG 281 ==
LOC: ER 03:08 → ERHOLD 04:38 → 2ND 11:08
PROVIDERS: ADMIT Internal Medicine; ATTEND Hospitalist
PROC: 4A023N7 Measurement of Cardiac Sampling and Pressure, Left Heart, Percutaneous Approach (ICD-10-PCS; principal; 2023-11-11)
PROC: B2111ZZ Fluoroscopy of Multiple Coronary Arteries using Low Osmolar Contrast (ICD-10-PCS; 2023-11-11)
DX: I21.4 Non-ST elevation (NSTEMI) myocardial infarction (principal); N17.9 Acute kidney failure, unspecified; E78.5 Hyperlipidemia, unspecified; I10 Essential (primary) hypertension; K21.9 Gastro-esophageal reflux disease without esophagitis; N40.0 Benign prostatic hyperplasia without lower urinary tract symptoms; E11.40 Type 2 diabetes mellitus with diabetic neuropathy, unspecified; F43.10 Post-traumatic stress disorder, unspecified; F17.210 Nicotine dependence, cigarettes, uncomplicated; I25.10 Atherosclerotic heart disease of native coronary artery without angina pectoris; Z88.0 Allergy status to penicillin; Z88.2 Allergy status to sulfonamides
CPT/HCPCS: 36415; 71045; 76937; 80048; 80061; 80076; 82947; 83036; 83735; 83880; 84100; 84484; 85025; 85610; 85730; 93005; 93458; 94760; 96374; 99152; 99285; C1893; J0461; J1644; J2001; J2250; J3010; J7030; J7040; J7613; J7644; Q9966

== ENCOUNTER 2024-02-02 13:03 | Inpatient (IN) | payer OTHER ==
--- OUTSIDE RECORDS SUMMARY | 2024-02-02 13:09 | XMS REPORT | Continuity of Care Document ---
Author Name Unknown Address [address] [facility] [address] [place] [address] [facility] Address [address] [facility] 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 Name Role Phone Giovanny Estrada Primary Care Physician [phone] Giovanny Estrada Attending Clinician Unavailable NAYLA BOGGS Attending Clinician Unavailable Nayla Boggs MD Attending Clinician [phone] Janelle Balderas Attending Clinician Unavailabl e Joycelyn-Mbayo_A_AH Attending Clinician Unavailable EDDOC, GENERIC FOR EDM Admitting Clinician Unava ilable Joycelyn-Mbayo_A_AH Admitting Clinician Unavailable Payers Payer Name Policy Type Policy Number Effective Date Expirati on Date Source [employer] [place] (MEDICARE REPLACEMENT/[place] - HMO) [id number] 2019 00:00:00 2020 00:00:00 [employer] [place]AC[place] HMO) [id number] 00:00:00 Problems Condition Name Condition Details Condition Category Status Onset Date Resolution Date Last Treatment Date Treating Clinician Comments Source Obesity (BMI 30-39.9) Obesity (BMI 30-39.9) Disease Active 2023-02 00:00: 00 [facility] Hyperlipid emia, unspecifie d hyperlipid emia type Hyperlipid emia, unspecifie d hyperlipid emia type Disease Active 2023-02 00:00: 00 [facility] Primary hypertensi on Primary hypertensi on Disease Active 2023-02 00:00: 00 [facility] Coronary artery disease involving mentasta coronary artery of mentasta heart without angina pectoris Coronary artery disease involving mentasta coronary artery of mentasta heart without angina pectoris Disease Active 2023-02 00:00: 00 [facility] Type 2 diabetes mellitus without complicati on, without long-term current use of insulin Type 2 diabetes mellitus without complicati on, without long-term current use of insulin Disease Active 2023-02 00:00: 00 [facility] Former smoker Former smoker Disease Active 2023-02 00:00: 00 [facility] Pain in both lower extremitie s Pain in both lower extremitie s Disease Active 2023-02 00:00: 00 [facility] Leg edema Leg edema Disease Active 2023-02 00:00: 00 [facility] PAF (paroxysma l atrial fibrillati on) PAF (paroxysma l atrial fibrillati on) Disease Active 2023-02 00:00: 00 [facility] Diabetes mellitus Diabetes Mellitus Problem Active 09-09 00:00: 00 [facility] Hyperlipid emia Hyperlipid emia Problem Active 09-09 00:00: 00 [facility] Depressive disorder Depressive Disorder Problem Active 09-09 00:00: 00 [facility] Neuropathy Neuropathy Problem Active 09-09 00:00: 00 [facility] Gastroesop hageal reflux disease Gastroesop hageal Reflux Disease Problem Active 09-09 00:00: 00 [facility] Benign prostatic hyperplasi a Benign Prostatic Hyperplasi a Problem Active 09-09 00:00: 00 [facility] [id number] Balanitis Problem Commo n [facility] [id number] At maximum risk for fall Problem [facility] [id number] GERD without esophagiti s Problem [facility] [id number] Normochrom ic normocytic anemia Problem Common [facility] [id number] Chronic constipati on Problem Common [facility] [id number] Benign prostatic hyperplasi a with lower urinary tract symptoms Problem [facility] [id number] Feeling of incomplete bladder emptying Problem [facility] [id number] Erectile dysfunctio n, unspecifie d erectile dysfunctio n type Problem [facility] Chronic pain Chronic pain Problem [facility] [id number] Other obesity due to excess calories Problem [facility] [id number] Type 2 diabetes mellitus with diabetic chronic kidney disease Problem Common [facility] [id number] Chronic kidney disease, stage 3 unspecifie d Problem [facility] Arthritis Arthritis Problem Comm on [facility] [id number] Mixed hyperlipid emia Problem [facility] [id number] shelter current use of insulin Problem [facility] [id number] Polyneurop athy Problem [facility] [id number] Iron deficiency Problem [facility] [id number] Type 2 diabetes mellitus with diabetic neuropathy , unspecifie d Problem [facility] Essential hypertensi on Benign essential HTN Problem Common [facility] [id number] Lumbago with sciatica, left side Problem [facility] [id number] Lumbago with sciatica, right side Problem [facility] [id number] Fatigue associated with anemia Problem [facility] [id number] Myocardial infarction , unspecifie d [place] type, unspecifie d artery Problem [facility] [id number] 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 Problem [facility] Allergies, Adverse Reactions, Alerts Allergy Name Allergy Type Status Severity Reaction(s) Onset Date Inactive Date Treating Clinician Comments Source Penicill ins DA Active [facility] SWELLING 11-10 00:00: 00 [facility] Sulfa (Sulfona mide Antibiot ics) DA Active [facility] SWELLING 11-10 00:00: 00 [facility] Penicill in Penicill in Active Unknown [facility] NO KNOWN ALLERGIE S Drug Class Active [facility] Social History Social Habit Start Date Stop Date Quantity Comments Source History of tobacco use Passive smoker [facility] Tobacco use and exposure 2023-12-17 00:00:00 2023-12-17 00:00:00 Smokeless tobacco non-user [facility] History of Social function 2023-12-17 00:00:00 2023-12-17 00:00:00 [facility] Sex assigned at 1945 00:00:00 1945 00:00:00 [facility] Smoking Status Start Date Stop Date Source Light Tobacco Smoker [place] Former Smoker 2023-12-17 00:00:00 2023-12-17 00:00:00 [facility] Current Smoker 2023-12-13 00:00:00 [facility] Medications Ordered Medication Name Filled Medication Name Start Date Stop Date Current Medication? Ordering Clinician Indication Dosage Frequency Signature (SIG) Comments Components Source lisinopriL (ZESTRIL) 40 mg tablet 2023-02 00:00: 00 01-12 00:00 :00 Yes 40mg Take 1 tablet by mouth in the morning and 1 tablet in the evening. [facility] diclofenac 75 mg EC tablet 2023-02 16:12: 53 Yes 75mg Take 1 tablet by mouth in the morning and 1 tablet in the evening. Take with meals. [facility] empaglifloz in (JARDIANCE) 25 mg Tab tablet 2023-02 16:12: 30 Yes 25mg Take 1 tablet by mouth in the morning. [facility] atorvastati n (LIPITOR) 40 mg tablet 2023-02 16:12: 13 Yes 40mg Take 1 tablet by mouth at bedtime. [facility] SERTraline 25 mg tablet 2023-02 16:12: 13 Yes 25mg Take 1 tablet by mouth in the morning. [facility] spironolact one 25 mg tablet 2023-02 16:12: 13 Yes 12.5mg Take 0.5 tablets by mouth in the morning and 0.5 tablets in the evening. [facility] metFORMIN 1,000 mg tablet 2023-02 16:12: 13 Yes 1000mg Take 1 tablet by mouth in the morning and 1 tablet in the evening. Take with meals. [facility] amiodarone 200 mg tablet 2023-02 16:12: 13 Yes 200mg Take 1 tablet by mouth in the morning and 1 tablet in the evening. [facility] clopidogreL 75 mg tablet 2023-02 16:12: 13 Yes 75mg Take 1 tablet by mouth in the morning. [facility] gabapentin ER 300 mg tablet, extended release 24 hr 2023-02 16:12: 13 Yes Take by mouth daily. [facility] amLODIPine 10 mg tablet 2023-02 16:12: 13 01-12 00:00 :00 No 10mg Take 1 tablet by mouth in the morning. [facility] amlodipine 10 mg tablet Take 1 tablet every day by oral route. amlodipine 10 mg tablet Take 1 tablet every day by oral route. No 1 Q1D amlodipine 10 mg tablet Take 1 tablet every day by oral route. [facility] amoxicillin 500 mg capsule amoxicillin 500 mg capsule No amoxicilli n 500 mg capsule [facility] aspirin 81 mg tablet,esperanza yed release Take 1 tablet every day by oral route. aspirin 81 mg tablet,esperanza yed release Take 1 tablet every day by oral route. No 1 Q1D aspirin 81 mg tablet,del ayed release Take 1 tablet every day by oral route. [facility] atorvastati n 40 mg tablet Take 1 tablet every day by oral route. atorvastati n 40 mg tablet Take 1 tablet every day by oral route. No 1 Q1D atorvastat in 40 mg tablet Take 1 tablet every day by oral route. [facility] azithromyci n 250 mg tablet azithromyci n 250 mg tablet No azithromyc in 250 mg tablet [facility] ciprofloxac in 500 mg tablet ciprofloxac in 500 mg tablet No ciprofloxa xuan 500 mg tablet [facility] diclofenac sodium 50 mg tablet,esperanza yed release Take 1 tablet twice a day by oral route. diclofenac sodium 50 mg tablet,esperanza yed release Take 1 tablet twice a day by oral route. No 1 BID diclofenac sodium 50 mg tablet,del ayed release Take 1 tablet twice a day by oral route. [facility] finasteride 5 mg tablet Take 1 tablet every day by oral route. finasteride 5 mg tablet Take 1 tablet every day by oral route. No 1 Q1D finasterid e 5 mg tablet Take 1 tablet every day by oral route. [facility] fluconazole 100 mg tablet fluconazole 100 mg tablet No fluconazol e 100 mg tablet [facility] gabapentin 300 mg capsule Take 1 capsule 3 times a day by oral route. gabapentin 300 mg capsule Take 1 capsule 3 times a day by oral route. No 1capsul e(s) TID gabapentin 300 mg capsule Take 1 capsule 3 times a day by oral route. [facility] hydralazine 25 mg tablet Take 1 tablet 3 times a day by oral route. hydralazine 25 mg tablet Take 1 tablet 3 times a day by oral route. No 1 TID hydralazin e 25 mg tablet Take 1 tablet 3 times a day by oral route. [facility] hydrocodone 5 mg-acetamin ophen 325 mg tablet hydrocodone 5 mg-acetamin ophen 325 mg tablet No hydrocodon e 5 mg-acetami nophen 325 mg tablet [facility] hydrocodone 7.5 mg-acetamin ophen 325 mg tablet hydrocodone 7.5 mg-acetamin ophen 325 mg tablet No hydrocodon e 7.5 mg-acetami nophen 325 mg tablet [facility] ibuprofen 800 mg tablet ibuprofen 800 mg tablet No ibuprofen 800 mg tablet [facility] Elva Benito U-100 Insulin 100 unit/mL (3 mL) subcutaneou s pen Inject 50 units twice a day by subcutaneou s route. Lantus Solostar U-100 Insulin 100 unit/mL (3 mL) subcutaneou s pen Inject 50 units twice a day by subcutaneou s route. No 50unit( s) BID Lantus Solostar U-100 Insulin 100 unit/mL (3 mL) subcutaneo us pen Inject 50 units twice a day by subcutaneo us route. [facility] metformin 850 mg tablet Take 1 tablet twice a day by oral route. metformin 850 mg tablet Take 1 tablet twice a day by oral route. No 1 BID metformin 850 mg tablet Take 1 tablet twice a day by oral route. [facility] metoprolol succ 50 mg-hydrochl orothiazide 12.5 mg tablet,ext. rel 24 hr Take 1 tablet every day by oral route. metoprolol succ 50 mg-hydrochl orothiazide 12.5 mg tablet,ext. rel 24 hr Take 1 tablet every day by oral route. No 1 Q1D metoprolol succ 50 mg-hydroch lorothiazi de 12.5 mg tablet,ext .rel 24 hr Take 1 tablet every day by oral route. [facility] neomycin-po lymyxin-hyd rocort 3.5 mg/mL-10,00 0 unit/mL-1 % ear solution neomycin-po lymyxin-hyd rocort 3.5 mg/mL-10,00 0 unit/mL-1 % ear solution No neomycin-p olymyxin-h ydrocort 3.5 mg/mL-10,0 00 unit/mL-1 % ear solution [facility] Novolog Flexpen U-100 Insulin aspart 100 unit/mL (3 mL) subcutaneou s Inject 25 units twice a day by subcutaneou s route. Novolog Flexpen U-100 Insulin aspart 100 unit/mL (3 mL) subcutaneou s Inject 25 units twice a day by subcutaneou s route. No 25unit( s) BID Novolog Flexpen U-100 Insulin aspart 100 unit/mL (3 mL) subcutaneo us Inject 25 units twice a day by subcutaneo us route. [facility] ofloxacin 0.3 % ear drops ofloxacin 0.3 % ear drops No ofloxacin 0.3 % ear drops [facility] omeprazole 20 mg capsule,del ayed release Take 1 capsule every day by oral route before meals. omeprazole 20 mg capsule,del ayed release Take 1 capsule every day by oral route before meals. No 1capsul e(s) Q1D omeprazole 20 mg capsule,de layed release Take 1 capsule every day by oral route before meals. [facility] prednisone 10 mg tablet prednisone 10 mg tablet No prednisone 10 mg tablet [facility] prednisone 20 mg tablet prednisone 20 mg tablet No prednisone 20 mg tablet [facility] tamsulosin 0.4 mg capsule Take 1 capsule every day by oral route. tamsulosin 0.4 mg capsule Take 1 capsule every day by oral route. No 1capsul e(s) Q1D tamsulosin 0.4 mg capsule Take 1 capsule every day by oral route. [facility] Omeprazole 20 MG Omeprazole 20 MG No BID Omeprazole 20 MG Tamsulosin HCl 0.4 MG Tamsulosin HCl 0.4 MG No 1{capsu le} QD Tamsulosin HCl 0.4 MG FLUoxetine HCl 10 MG FLUoxetine HCl 10 MG No 2{capsu les} QD FLUoxetine HCl 10 MG Cyclobenzap rine HCl 10 MG Cyclobenzap rine HCl 10 MG No 1{table t_at_be dtime_a s_neede d} QD Cyclobenza maday HCl 10 MG Metoprolol Tartrate 50 MG Metoprolol Tartrate 50 MG No BID Metoprolol Tartrate 50 MG amLODIPine Besylate 10 MG amLODIPine Besylate 10 MG No 1{table t} QD amLODIPine Besylate 10 MG Empaglifloz in 25 MG Empaglifloz in 25 MG No 1{table t} QD Empagliflo zin 25 MG Lisinopril 40 MG Lisinopril 40 MG No 1{table t} BID Lisinopril 40 MG hydrALAZINE HCl 25 MG hydrALAZINE HCl 25 MG No 1{table t_with_ food} TID hydrALAZIN E HCl 25 MG Chlorthalid one 25 MG Chlorthalid one 25 MG No 1{table t_in_th e_morni ng_with _food} QD Chlorthali done 25 MG NovoLOG FlexPen 100 UNIT/ML NovoLOG FlexPen 100 UNIT/ML No NovoLOG FlexPen 100 UNIT/ML Gabapentin 300 MG Gabapentin 300 MG No 3{capsu les} TID Gabapentin 300 MG Finasteride 5 MG Finasteride 5 MG No 1{table t} QD Finasterid e 5 MG Lantus SoloStar 100 UNIT/ML Lantus SoloStar 100 UNIT/ML No BID Lantus SoloStar 100 UNIT/ML Acetaminoph en 325 MG Acetaminoph en 325 MG No 2{table ts_as_n eeded} QID Acetaminop hen 325 MG Diclofenac Sodium 75 MG Diclofenac Sodium 75 MG No 1{table t_with_ food_or _milk} BID Diclofenac Sodium 75 MG Vitamin D3 10 MCG (400 UNIT) Vitamin D3 10 MCG (400 UNIT) No 2{table ts} QD Vitamin D3 10 MCG (400 UNIT) Pen Hidalgo 31G X 8 MM Pen Hidalgo 31G X 8 MM No Pen Hidalgo 31G X 8 MM Spironolact one 25 MG Spironolact one 25 MG No 1{table t} Spironolac tone 25 MG metFORMIN HCl 1000 MG metFORMIN HCl 1000 MG No 1{table t_with_ a_meal} TID metFORMIN HCl 1000 MG Rosuvastati n Calcium 20 MG Rosuvastati n Calcium 20 MG No 1{table t} QD Rosuvastat in Calcium 20 MG Insulin Aspart FlexPen 100 UNIT/ML Insulin Aspart FlexPen 100 UNIT/ML No Insulin Aspart FlexPen 100 UNIT/ML Potassium 99 MG Potassium 99 MG No 1{table t} QD Potassium 99 MG Magnesium Oxide 420 MG Magnesium Oxide 420 MG No 1{table t_as_ne eded} QD Magnesium Oxide 420 MG Docusate Calcium 240 MG Docusate Calcium 240 MG No 1{capsu le_as_n eeded} QD Docusate Calcium 240 MG Immunizations Ordered Immunization Name Filled Immunization Name Date Status Comments Source Influenza, High-Dose, Trivalent, PF (FLUZONE) 2022-12-26 00:00:00 Completed [facility] PNEUMAVAX 23 PNEUMAVAX 2019-07-15 11:24:00 Completed [facility] PNEUMAVAX 23 PNEUMAVAX 2019-07-15 11:24:00 Completed [facility] PNEUMAVAX 23 PNEUMAVAX 2019-07-15 11:24:00 Completed [facility] PNEUMAVAX 23 PNEUMAVAX 2019-07-15 11:24:00 Completed [facility] PNEUMAVAX 23 PNEUMAVAX 2019-07-15 11:24:00 Completed [facility] PNEUMAVAX 23 PNEUMAVAX 2019-07-15 11:24:00 Completed [facility] PNEUMAVAX 23 PNEUMAVAX 2019-07-15 11:24:00 Completed [facility] FluAD FluAD 2019-04-16 11:23:00 Completed [facility] FluAD FluAD 2019-04-16 11:23:00 Completed [facility] FluAD FluAD 2019-04-16 11:23:00 Completed [facility] FluAD FluAD 2019-04-16 11:23:00 Completed [facility] FluAD FluAD 2019-04-16 11:23:00 Completed [facility] FluAD FluAD 2019-04-16 11:23:00 Completed [facility] FluAD FluAD 2019-04-16 11:23:00 Completed [facility] Influenza A monovalent (H5N1), ADJUVANTED Influenza A monovalent (H5N1), ADJUVANTED2018-11-25 00:00:00 Completed [place] Zostavax Zostavax 2018-04-30 11:24:00 Completed [facility] Zostavax Zostavax 2018-04-30 11:24:00 Completed [facility] Zostavax Zostavax 2018-04-30 11:24:00 Completed [facility] Zostavax Zostavax 2018-04-30 11:24:00 Completed [facility] Zostavax Zostavax 2018-04-30 11:24:00 Completed [facility] Zostavax Zostavax 2018-04-30 11:24:00 Completed [facility] Zostavax Zostavax 2018-04-30 11:24:00 Completed [facility] pneumococcal polysaccharide PPV23 pneumococcal polysaccharide PPV23 2017-05-27 00:00:00 Completed [place] FluAD FluAD Unknown Completed Common [facility] PNEUMAVAX 23 PNEUMAVAX 23 Unknown Completed Comm on [facility] Zostavax Zostavax Unknown Completed Common [facility] FluAD FluAD Unknown Completed Common [facility] PNEUMAVAX 23 PNEUMAVAX 23 Unknown Completed Comm on [facility] Zostavax Zostavax Unknown Completed Common [facility] FluAD FluAD Unknown Completed Common [facility] PNEUMAVAX 23 PNEUMAVAX 23 Unknown Completed Comm on [facility] Zostavax Zostavax Unknown Completed Common [facility] FluAD FluAD Unknown Completed [facility] PNEUMAVAX 23 PNEUMAVAX 23 Unknown Completed Comm on [facility] Zostavax Zostavax Unknown Completed Common [facility] FluAD FluAD Unknown Completed Common [facility] PNEUMAVAX 23 PNEUMAVAX 23 Unknown Completed Comm on [facility] Zostavax Zostavax Unknown Completed Common [facility] FluAD FluAD Unknown Completed Common [facility] PNEUMAVAX 23 PNEUMAVAX 23 Unknown Completed Comm on [facility] Zostavax Zostavax Unknown Completed Common [facility] Vital Signs Vital Name Observation Time Observation Value Comments S blaine Systolic blood pressure 2023-12-17 21:00:00 141 mm[Hg] [facility] Diastolic blood pressure 2023-12-17 21:00:00 50 mm[Hg] [facility] Heart rate 2023-12-17 21:00:00 65 /min [facility] Oxygen saturation in Arterial blood by Pulse oximetry 2023-12-17 21:00:00 95 /min [facility] Respiratory rate 2023-12-17 20:55:00 20 /min [facility] Body height 2023-12-17 20:55:00 182.9 cm [facility] Body weight 2023-12-17 20:55:00 110.451 kg [facility] BMI 2023-12-17 20:55:00 33.02 kg/m2 [facility] height 2023-12-17 11:15:00 72 [in_i] Commo n [facility] weight 2023-12-17 11:15:00 242.2 [lb_av] Co [facility] temperature 2023-12-17 11:15:00 97.9 [degF] Com [facility] bmi 2023-12-17 11:15:00 32.84 kg/m2 Comm on [facility] oximetry 2023-12-17 11:15:00 99 % Commo n [facility] blood pressure systolic 2023-12-17 11:15:00 138 mm[Hg] Common [facility] blood pressure diastolic 2023-12-17 11:15:00 60 mm[Hg] [facility] height 2023-10-08 14:50:00 72 [in_i] Commo n [facility] weight 2023-10-08 14:50:00 245.6 [lb_av] Co [facility] temperature 2023-10-08 14:50:00 97.0 [degF] Com [facility] bmi 2023-10-08 14:50:00 33.31 kg/m2 Comm on [facility] oximetry 2023-10-08 14:50:00 98 % Commo n [facility] respiratory rate 2023-10-08 14:50:00 16 /min Common [facility] blood pressure systolic 2023-10-08 14:50:00 120 mm[Hg] [facility] blood pressure diastolic 2023-10-08 14:50:00 62 mm[Hg] Common [facility] height 2023-02-01 10:40:00 72 [in_i] Commo n [facility] weight 2023-02-01 10:40:00 257.0 [lb_av] Co mmon [facility] temperature 2023-02-01 10:40:00 97.6 [degF] Com [facility] bmi 2023-02-01 10:40:00 34.85 kg/m2 Comm on [facility] oximetry 2023-02-01 10:40:00 98 % Commo n [facility] respiratory rate 2023-02-01 10:40:00 17 /min Common [facility] blood pressure systolic 2023-02-01 10:40:00 139 mm[Hg] Common [facility] blood pressure diastolic 2023-02-01 10:40:00 66 mm[Hg] Common [facility] height 2023-02-01 10:40:00 72 [in_i] Commo n [facility] weight 2023-02-01 10:40:00 257.0 [lb_av] Co on [facility] temperature 2023-02-01 10:40:00 97.6 [degF] Com [facility] bmi 2023-02-01 10:40:00 34.85 kg/m2 Comm on [facility] oximetry 2023-02-01 10:40:00 98 % Commo n [facility] respiratory rate 2023-02-01 10:40:00 17 /min Common [facility] blood pressure systolic 2023-02-01 10:40:00 139 mm[Hg] Common Spiri [facility] blood pressure diastolic 2023-02-01 10:40:00 66 mm[Hg] Common [facility] height 2022-08-02 10:00:00 72 [in_i] Commo n [facility] weight 2022-08-02 10:00:00 260.4 [lb_av] Co mmon [facility] temperature 2022-08-02 10:00:00 96.7 [degF] Com [facility] bmi 2022-08-02 10:00:00 35.31 kg/m2 Comm on [facility] oximetry 2022-08-02 10:00:00 95 % Commo n [facility] respiratory rate 2022-08-02 10:00:00 17 /min [facility] blood pressure systolic 2022-08-02 10:00:00 140 mm[Hg] Common [facility]iri [facility] blood pressure diastolic 2022-08-02 10:00:00 65 mm[Hg] [facility] height 2022-02-01 10:10:00 72 [in_i] Commo n [facility] weight 2022-02-01 10:10:00 276.4 [lb_av] Co on [facility] temperature 2022-02-01 10:10:00 97.4 [degF] Com [facility] bmi 2022-02-01 10:10:00 37.48 kg/m2 Comm on [facility] oximetry 2022-02-01 10:10:00 96 % Commo n [facility] respiratory rate 2022-02-01 10:10:00 17 /min [facility] blood pressure systolic 2022-02-01 10:10:00 137 mm[Hg] Common Spiri [facility] blood pressure diastolic 2022-02-01 10:10:00 65 mm[Hg] [facility] height 2022-02-01 10:20:00 72 [in_i] Commo n [facility] weight 2022-02-01 10:20:00 276.4 [lb_av] Co [facility] temperature 2022-02-01 10:20:00 97.4 [degF] Com [facility] bmi 2022-02-01 10:20:00 37.48 kg/m2 Comm on [facility] oximetry 2022-02-01 10:20:00 96 % Commo n [facility] respiratory rate 2022-02-01 10:20:00 17 /min [facility] blood pressure systolic 2022-02-01 10:20:00 137 mm[Hg] [facility] blood pressure diastolic 2022-02-01 10:20:00 65 mm[Hg] [facility] height 2021-03-20 10:20:00 72 [in_i] Commo n [facility] weight 2021-03-20 10:20:00 276.3 [lb_av] Co mmon [facility] temperature 2021-03-20 10:20:00 97.2 [degF] Com mon [facility] bmi 2021-03-20 10:20:00 37.47 kg/m2 Comm on [facility] oximetry 2021-03-20 10:20:00 97 % Commo n [facility] respiratory rate 2021-03-20 10:20:00 17 /min [facility] blood pressure systolic 2021-03-20 10:20:00 135 mm[Hg] [facility] blood pressure diastolic 2021-03-20 10:20:00 65 mm[Hg] [facility] Procedures Procedure Date / Time Performed Performing Clinicia n Source HB ECG ROUTINE & RHYTHM STRIP 2023-12-17 21:05:57 Nayla Boggs [facility] [id number] 2023-11-15 00:00:00 CHAAB.01 [facility] [id number] 2023-11-15 00:00:00 CHAAB.01 [facility] [id number] 2023-11-15 00:00:00 [facility]AAB.01 [facility] [id number] 2023-11-15 00:00:00 CHAAB.01 [facility] [id number] 2023-11-15 00:00:00 CHAAB.01 [facility] [id number] 2023-11-15 00:00:00 CHAAB.01 [facility] [id number] 2023-11-15 00:00:00 CHAAB.01 [facility] Encounters Start Date/Time End Date/Time Encounter Type Admission Type Attending [facility] Care Facility Care Department Encounter ID Source 2022-08-02 09:55:00 Outpatient Estrada, Giovanny STLC STLMLC [id number] [facility] 2022-01-31 13:25:01 Outpatient Estrada, Giovanny STLC STLMLC [id number] [facility] 2021-08-22 10:23:03 Outpatient Estrada, Giovanny ST[facility] STLMLC [id number] [facility] 2021-03-22 14:34:44 Outpatient Estrada, Giovanny STLC STLMLC [id number] [facility] 2021-03-22 14:34:03 Outpatient Estrada, Giovanny STLC STLMLC [id number] [facility] 2021-03-22 13:36:16 Outpatient [facility]strada[facility] [id number] [facility] 2021-03-22 13:13:57 Outpatient Estrada, Giovanny STLC STLMLC [id number] [facility] 2021-03-22 13:13:09 Outpatient Estrada, Giovanny ST[facility] STLMLC [id number] [facility] 2021-03-22 12:44:45 Outpatient Estrada, Giovanny ST[facility] STLMLC [id number] [facility] 2021-03-22 12:39:17 Outpatient Estrada, Giovanny ST[facility] STLMLC [id number] [facility] 2021-03-22 12:37:17 Outpatient Estrada, Giovanny STLMLC STLC [id number] [facility] 2021-03-22 11:23:20 Outpatient Giovanny Estrada STLC STLC [id number] [facility] 2024-01-13 00:00:00 2024-01-13 13:51:13 [facility] [id number] [facility] 2024-01-08 00:00:00 2024-01-08 09:30:35 [facility] [id number] [facility] 2023-12-17 15:40:00 2023-12-17 16:30:08 Outpatient R [facility] [id number] [facility] 2023-12-17 15:40:00 2023-12-17 16:30:08 [facility] [id number] [facility] 2023-12-17 00:00:00 2023-12-17 00:00:00 OFFICE VISIT ESTAB PT LEVEL 4 STLMLC STLC [id number] [facility] 2023-12-16 00:00:00 2023-12-16 00:00:00 (TEL) STLMLC STLMLC [id number] [facility] 2023-12-11 00:00:00 2023-12-11 00:00:00 (TEL) STLMLC STLMLC [id number] [facility] 2023-11-11 17:30:00 2023-11-22 06:15:00 Inpatient EM Janelle Balderas HCACL INTE.02 [id number] 13 [facility] 2023-10-10 00:00:00 2023-10-10 00:00:00 (TEL) STLMLC STLMLC [id number] [facility] 2023-10-08 00:00:00 2023-10-08 00:00:00 OFFICE VISIT ESTAB PT LEVEL 4 STLMLC STLMLC [id number] [facility] 2023-10-08 00:00:00 2023-10-08 00:00:00 (TEL) STLMLC STLMLC [id number] [facility] 2023-03-08 00:00:00 2023-03-08 00:00:00 (TEL) STLMLC STLMLC [id number] [facility] 2023-02-01 00:00:00 2023-02-01 00:00:00 OFFICE VISIT ESTAB PT LEVEL 4 STLMLC STLMLC [id number] [facility] 2023-02-01 00:00:00 2023-02-01 00:00:00 SUB ANNUAL MCR WELLNESS VISIT STLMLC STLMLC [id number] [facility] 2023-02-01 00:00:00 2023-02-01 00:00:00 (TEL) STLMLC STLMLC [id number] [facility] 2022-08-02 00:00:00 2022-08-02 00:00:00 OFFICE VISIT ESTAB PT LEVEL 4 STLMLC STLMLC [id number] [facility] 2022-02-01 00:00:00 2022-02-01 00:00:00 OFFICE VISIT ESTAB PT LEVEL 4 STLMLC STLMLC [id number] [facility] 2022-02-01 00:00:00 2022-02-01 00:00:00 SUB ANNUAL MCR WELLNESS VISIT STLMLC STLMLC [id number] [facility] 2022-02-01 00:00:00 2022-02-01 00:00:00 (TEL) STLMLC STLMLC [id number] [facility] 2021-12-05 00:00:00 2021-12-05 00:00:00 (TEL) STLMLC STLMLC [id number] [facility] 2021-08-11 00:00:00 2021-08-11 00:00:00 (TEL) STLMLC STLMLC [id number] [facility] 2021-03-20 00:00:00 2021-03-20 00:00:00 OFFICE VISIT EST PT LEVEL 3 STLMLC STLMLC [id number] [facility] 2021-03-16 00:00:00 2021-03-16 00:00:00 (TEL) STLMLC STLMLC [id number] [facility] 2021-03-07 00:00:00 2021-03-07 00:00:00 (TEL) STLMLC STLMLC [id number] [facility] 2020-10-25 00:00:00 2020-10-25 00:00:00 Outpatient STLMLC STLMLC [id number] [facility] 2020-10-04 00:00:00 2020-10-04 00:00:00 Outpatient STLMLC STLMLC [id number] [facility] 2020-10-04 00:00:00 2020-10-04 00:00:00 Outpatient STLMLC STLMLC [id number] [facility] 2020-05-11 00:00:00 2020-05-11 00:00:00 Outpatient STLMLC STLMLC [id number] [facility] 2020-05-04 00:00:00 2020-05-04 00:00:00 Outpatient STLMLC STLMLC [id number] [facility] 2020-02-19 08:45:00 2020-02-19 08:45:00 Outpatient Joycelyn-Mbayo _A_[facility] [id number] [facility] 2020-02-19 08:45:00 2020-02-19 08:45:00 Outpatient Joycelyn-Mbayo _A_AH VFP VFP [id number] [facility] 2020-02-10 00:00:00 2020-02-10 00:00:00 Outpatient STLMLC STLMLC [id number] [facility] 2020-01-13 12:00:00 2020-01-13 12:00:00 Outpatient Joycelyn-Mbayo _A_AH VFP VFP [id number] [facility] 2020-01-01 07:21:00 2020-01-01 07:21:00 Outpatient Joycelyn-Mbayo _A_AH VFP VFP [id number] [facility] 2019-12-25 00:00:00 2019-12-25 00:00:00 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 [facility] - _[email or web address] Direct [id number] [facility] 2019-11-05 11:00:00 2019-11-05 11:00:00 [facility] [id number] [facility] 2019-10-09 09:43:00 2019-10-09 09:43:00 Outpatient Joycelyn-Mbayo _A_AH VFP VFP [id number] [facility] 2019-09-29 09:32:00 2019-09-29 09:32:00 Outpatient Joycelyn-Mbayo _A_AH VFP VFP [id number] [facility] 2019-09-22 00:00:00 2019-09-22 00:00:00 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 VFP [place] - [facility] - [email or web address] Direct [id number] [facility] 2019-09-09 11:21:00 2019-09-09 11:21:00 Outpatient Joyceyln-Mbayo _A_AH VFP VFP [id number] [facility] 2019-09-03 12:41:00 2019-09-03 12:41:00 Outpatient Joycelyn-Mbayo _A_AH VFP VFP [id number] [facility] 2019-08-14 11:14:00 2019-08-14 11:14:00 Outpatient [facility] [id number] [facility] 2019-08-06 11:00:00 2019-08-06 11:00:00 Outpatient [facility] [id number] [facility] 2019-08-06 11:00:00 2019-08-06 11:00:00 Outpatient [facility] [id number] [facility] 2019-07-30 01:10:00 2019-07-30 01:10:00 Outpatient Joycelyn-Mbayo _A_AH VFP VFP [id number] [facility] 2019-07-21 11:00:00 2019-07-21 11:00:00 Outpatient [facility] [id number] [facility] 2019-06-25 12:45:00 2019-06-25 12:45:00 Outpatient Joycelyn-Mbayo _A_AH VFP VFP [id number] [facility] 2019-06-25 12:45:00 2019-06-25 12:45:00 Outpatient Joycelyn-Mbayo _A_AH VFP VFP [id number] [facility] 2019-05-27 00:00:00 2019-05-27 00:00:00 Uzma galarza, 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 VFP [place] - [facility] - [email or web address]_ [place] Direct [id number] [facility] 2019-05-20 03:57:00 2019-05-20 03:57:00 Outpatient Joycelyn-Roney _A_AH [facility] [id number] [facility] Results Test Description Test Time Test Comments Results Result Co mments Source [id number] 03:27:00* Test Item Value Reference Range Interpretation Comme nts MAGNESIUM (test code = MAG) 1.84 mg/dL 1.6-2.6 N CBC W/AUTO [id number] 02:58:00* Test Item Value Reference Range Interpretation Comme nts WHITE BLOOD CELL (test code = WBC) 12.6 x10 3/uL 4.5-11.0 H RED BLOOD CELL (test code = RBC) 4.00 x10 6/uL 4.00-5.60 N HEMOGLOBIN (test code = HGB) 11.7 g/dL 12.5-16.9 L HEMATOCRIT (test code = HCT) 37.1 % 37.5-50.7 L MEAN CELL VOLUME (test code = MCV) 92.8 fL 81.0-99.0 N MEAN CELL HGB (test code = MCH) 29.3 pg 27.0-33.0 N MEAN CELL HGB CONCETRATION (test code = MCHC) 31.5 g/dL 33.0-37.0 L RED CELL DISTRIBUTION WIDTH CV (test code = RDW) 15.8 % 11.5-14.5 H RED CELL DISTRIBUTION WIDTH SD (test code = RDW-SD) 52.9 fL 37.0-54.0 N PLATELET COUNT (test code = PLT) 308 x10 3/uL 150-400 N MEAN PLATELET VOLUME (test c ode = MPV) 9.2 fL 7.0-9.0 H NEUTROPHIL % (test code = NT%) 68.8 % 56.0-77.0 N IMMATURE GRANULOCYTE % (test code = IG%) 0.6 % 0.0-2.0 N LYMPHOCYTE % (test code = LY%) 17.4 % 14.0-32.0 N MONOCYTE % (test code = MO%) 7.6 % 4.8-9.0 N EOSINOPHIL % (test code = EO%) 5.3 % 0.3-3.7 H BASOPHIL % (test code = BA%) 0.3 % 0.0-2.0 N NUCLEATED RBC % (test code = NRBC%) 0.0 % 0-0 N NEUTROPHIL # (test code = NT#) 8.68 x10 3/uL 2.0-7.6 H IMMATURE GRANULOCYTE # (test code = IG#) 0.07 x10 3/uL 0.00-0.03 H LYMPHOCYTE # (test code = LY#) 2.20 x10 3/uL 1.0-3.8 N MONOCYTE # (test code = MO#) 0.96 x10 3/uL 0.1-0.8 H EOSINOPHIL # (test code = EO#) 0.67 x10 3/uL 0.0-0.2 H BASOPHIL # (test code = BA#) 0.04 x10 3/uL 0.0-0.2 N NUCLEATED RBC # (test code = NRBC#) 0.00 x10 3/uL 0.0-0.1 N GLUCOSE [id number] 20:21:00* Test Item Value Reference Range Interpretation Comme nts GLUCOSE BEDSIDE (test code = GLUBED) 186 MG/DL 70-110 H Performed by cer tified radiotelegraph operator servicer at [facility] GLUCOSE [id number] 17:08:00* Test Item Value Reference Range Interpretation Comme nts GLUCOSE BEDSIDE (test code = GLUBED) 197 MG/DL 70-110 H Performed by cer tified radiotelegraph operator servicer at [facility] GLUCOSE [id number] 12:06:00* Test Item Value Reference Range Interpretation Comme nts GLUCOSE BEDSIDE (test code = GLUBED) 179 MG/DL 70-110 H Performed by AEGEA Medicalied radiotelegraph operator servicer at [facility] GLUCOSE [id number] 08:11:00* Test Item Value Reference Range Interpretation Comme nts GLUCOSE BEDSIDE (test code = GLUBED) 184 MG/DL 70-110 H Performed by Domob radiotelegraph operator servicer at [facility] BASIC METABOLIC [id number] 02:13:00* Test Item Value Reference Range Interpretation Comme nts SODIUM (test code = NA) 140 mEq/L 134-147 N POTASSIUM (test code = K) 4.0 mEq/L 3.4-5.0 N CHLORIDE (test code = CL) 103 mEq/L 100-108 N CARBON DIOXIDE (test code = CO2) 28 mEq/l 21-33 N ANION GAP (test code = GAP) 13 0-20 N GLUCOSE (test code = GLU) 132 mg/dL 77-141 BLOOD UREA NITROGEN (test code = BUN) 34 mg/dL 7-25 H GLOMERULAR FILTRATION RATE (test code = GFR) 62.3 70-80 L The Glomerular Filtration Rate is a calculated parameterbased on serum Creatinine, patient age and sex. GFR valuesless than 60 mL/min/1.73 square meters are indicative ofChronic Kidney Disease. Values less than 15 mL/min/1.73square meters indicate Kidney failure. The calculation forGFR is based on the CKD-EPI (2020) calculation. This formulais race indifferent and is the recommended formula for GFRby the National Kidney Foundation for Adults.The GFR will not calculate if the sex is unknown or if thepatient's age is <18 years. CREATININE (test code = CREAT) 1.2 mg/dL 0.6-1.3 N CALCIUM (test code = CA) 9.0 mg/dL 8.0-10.5 N [id number] 02:13:00* Test Item Value Reference Range Interpretation Comme nts MAGNESIUM (test code = MAG) 1.80 mg/dL 1.6-2.6 N CBC W/AUTO [id number] 01:50:00* Test Item Value Reference Range Interpretation Comme nts WHITE BLOOD CELL (test code = WBC) 12.3 x10 3/uL 4.5-11.0 H RED BLOOD CELL (test code = RBC) 3.84 x10 6/uL 4.00-5.60 L HEMOGLOBIN (test code = HGB) 11.2 g/dL 12.5-16.9 L HEMATOCRIT (test code = HCT) 35.5 % 37.5-50.7 L MEAN CELL VOLUME (test code = MCV) 92.4 fL 81.0-99.0 N MEAN CELL HGB (test code = MCH) 29.2 pg 27.0-33.0 N MEAN CELL HGB CONCETRATION (test code = MCHC) 31.5 g/dL 33.0-37.0 L RED CELL DISTRIBUTION WIDTH CV (test code = RDW) 15.9 % 11.5-14.5 H RED CELL DISTRIBUTION WIDTH SD (test code = RDW-SD) 53.4 fL 37.0-54.0 N PLATELET COUNT (test code = PLT) 274 x10 3/uL 150-400 N MEAN PLATELET VOLUME (test c ode = MPV) 9.4 fL 7.0-9.0 H NEUTROPHIL % (test code = NT%) 66.4 % 56.0-77.0 N IMMATURE GRANULOCYTE % (test code = IG%) 0.6 % 0.0-2.0 N LYMPHOCYTE % (test code = LY%) 16.8 % 14.0-32.0 N MONOCYTE % (test code = MO%) 9.4 % 4.8-9.0 H EOSINOPHIL % (test code = EO%) 6.3 % 0.3-3.7 H BASOPHIL % (test code = BA%) 0.5 % 0.0-2.0 N NUCLEATED RBC % (test code = NRBC%) 0.0 % 0-0 N NEUTROPHIL # (test code = NT#) 8.17 x10 3/uL 2.0-7.6 H IMMATURE GRANULOCYTE # (test code = IG#) 0.07 x10 3/uL 0.00-0.03 H LYMPHOCYTE # (test code = LY#) 2.07 x10 3/uL 1.0-3.8 N MONOCYTE # (test code = MO#) 1.16 x10 3/uL 0.1-0.8 H EOSINOPHIL # (test code = EO#) 0.77 x10 3/uL 0.0-0.2 H BASOPHIL # (test code = BA#) 0.06 x10 3/uL 0.0-0.2 N NUCLEATED RBC # (test code = NRBC#) 0.00 x10 3/uL 0.0-0.1 N GLUCOSE [id number] 19:43:00* Test Item Value Reference Range Interpretation Comme nts GLUCOSE BEDSIDE (test code = GLUBED) 168 MG/DL 70-110 H Performed by cer tified radiotelegraph operator servicer at [facility] GLUCOSE [id number] 16:27:00* Test Item Value Reference Range Interpretation Comme nts GLUCOSE BEDSIDE (test code = GLUBED) 216 MG/DL 70-110 H Performed by cer tified radiotelegraph operator servicer at [facility] GLUCOSE [id number] 12:43:00* Test Item Value Reference Range Interpretation Comme nts GLUCOSE BEDSIDE (test code = GLUBED) 236 MG/DL 70-110 H Performed by cer tified radiotelegraph operator servicer at [facility] GLUCOSE [id number] 08:16:00* Test Item Value Reference Range Interpretation Comme nts GLUCOSE BEDSIDE (test code = GLUBED) 186 MG/DL 70-110 H Performed by cer tified radiotelegraph operator servicer at [facility] BASIC METABOLIC [id number] 03:11:00* Test Item Value Reference Range Interpretation Comme nts SODIUM (test code = NA) 140 mEq/L 134-147 N POTASSIUM (test code = K) 3.8 mEq/L 3.4-5.0 N CHLORIDE (test code = CL) 104 mEq/L 100-108 N CARBON DIOXIDE (test code = CO2) 29 mEq/l 21-33 N ANION GAP (test code = GAP) 11 0-20 N GLUCOSE (test code = GLU) 200 mg/dL 77-141 H BLOOD UREA NITROGEN (test code = BUN) 37 mg/dL 7-25 H GLOMERULAR FILTRATION RATE (test code = GFR) 69.1 70-80 L The Glomerular Filtration Rate is a calculated parameterbased on serum Creatinine, patient age and sex. GFR valuesless than 60 mL/min/1.73 square meters are indicative ofChronic Kidney Disease. Values less than 15 mL/min/1.73square meters indicate Kidney failure. The calculation forGFR is based on the CKD-EPI (202) calculation. This formulais race indifferent and is the recommended formula for GFRby the National Kidney Foundation for Adults.The GFR will not calculate if the sex is unknown or if thepatient's age is <18 years. CREATININE (test code = CREAT) 1.1 mg/dL 0.6-1.3 N CALCIUM (test code = CA) 9.2 mg/dL 8.0-10.5 N [id number] 03:11:00* Test Item Value Reference Range Interpretation Comme nts MAGNESIUM (test code = MAG) 1.89 mg/dL 1.6-2.6 N CBC W/AUTO [id number] 02:54:00* Test Item Value Reference Range Interpretation Comme nts WHITE BLOOD CELL (test code = WBC) 11.8 x10 3/uL 4.5-11.0 H RED BLOOD CELL (test code = RBC) 3.74 x10 6/uL 4.00-5.60 L HEMOGLOBIN (test code = HGB) 10.9 g/dL 12.5-16.9 L HEMATOCRIT (test code = HCT) 34.2 % 37.5-50.7 L MEAN CELL VOLUME (test code = MCV) 91.4 fL 81.0-99.0 N MEAN CELL HGB (test code = MCH) 29.1 pg 27.0-33.0 N MEAN CELL HGB CONCETRATION (test code = MCHC) 31.9 g/dL 33.0-37.0 L RED CELL DISTRIBUTION WIDTH CV (test code = RDW) 15.8 % 11.5-14.5 H RED CELL DISTRIBUTION WIDTH SD (test code = RDW-SD) 52.5 fL 37.0-54.0 N PLATELET COUNT (test code = PLT) 264 x10 3/uL 150-400 N MEAN PLATELET VOLUME (test c ode = MPV) 9.7 fL 7.0-9.0 H NEUTROPHIL % (test code = NT%) 72.1 % 56.0-77.0 N IMMATURE GRANULOCYTE % (test code = IG%) 0.3 % 0.0-2.0 N LYMPHOCYTE % (test code = LY%) 14.5 % 14.0-32.0 N MONOCYTE % (test code = MO%) 8.4 % 4.8-9.0 N EOSINOPHIL % (test code = EO%) 4.4 % 0.3-3.7 H BASOPHIL % (test code = BA%) 0.3 % 0.0-2.0 N NUCLEATED RBC % (test code = NRBC%) 0.0 % 0-0 N NEUTROPHIL # (test code = NT#) 8.48 x10 3/uL 2.0-7.6 H IMMATURE GRANULOCYTE # (test code = IG#) 0.04 x10 3/uL 0.00-0.03 H LYMPHOCYTE # (test code = LY#) 1.71 x10 3/uL 1.0-3.8 N MONOCYTE # (test code = MO#) 0.99 x10 3/uL 0.1-0.8 H EOSINOPHIL # (test code = EO#) 0.52 x10 3/uL 0.0-0.2 H BASOPHIL # (test code = BA#) 0.04 x10 3/uL 0.0-0.2 N NUCLEATED RBC # (test code = NRBC#) 0.00 x10 3/uL 0.0-0.1 N GLUCOSE [id number] 20:44:00* Test Item Value Reference Range Interpretation Comme nts GLUCOSE BEDSIDE (test code = GLUBED) 250 MG/DL 70-110 H Performed by cer tified radiotelegraph operator servicer at [facility] GLUCOSE [id number] 16:58:00* Test Item Value Reference Range Interpretation Comme nts GLUCOSE BEDSIDE (test code = GLUBED) 199 MG/DL 70-110 H Performed by cer tified radiotelegraph operator servicer at [facility] [id number] 12:53:00* Test Item Value Reference Range Interpretation Comme nts SURGICAL (test code = SR) RUN DATE: 11/19/23 [place] - LAB PAGE 1 RUN TIME: 1253 Specimen Inquiry RUN USER: INTERFACE JENNIFER ENT: DAVE ARTIS LOC: KellieCVN1 U #: [id number] AGE/SX: 78/M ROOM: [facility] RE11/11/23CODIE DR: Janelle Balderas MD : 46 BED: 1 DIS: STATUS: ADM IN TLOC: SPEC #: [id number] RECD: 11/18/23 STATUS: MURALI PERES #: [id number] BISI: 11/15/23- SUBM DR: Janelle Balderas MD ENTERED: 11/18/23 SP TYPE: SURGICAL OTHR DR: Self Referred Jared Murguia MD, Molham MD Alkarra, Nehme X MD EDDOC, GENERIC FOR EDMORDERED: [id number], ANATOMIC SPEC COPIES TO: Self Referred Jared Murguia MD [address] [place] [address] Tavo Nj MD [address] [place] [address] Ana Smith MD [address] [place] [id number] Janelle Balderas MD [address] [place] [address]. [address] [place] [address] EDDO, GENERIC FOR EDM [address] [place] [address] PROCEDURES: [id number] (11/18/23) TISSUES: A. ATRIUM - LEFT ATRIAL APPENDAGE CONTINUED ON NEXT PAGE RUN DATE: 11/19/23 [facility] LAB PAGE 2 RUN TIME: 1253 Specimen Inquiry RUN USER: INTERFACE SPEC #: [id number] PATIENT: DAVE ARTIS #[id number] (Continued) ------- CLINICAL HISTORY SAME FINAL DIAGNOSIS Heart, left atrial appendage, excision: -Cardiac tissue with mild ischemic-type changes. GROSS DESCRIPTION Received in formalin labeled "left atrial appendage" is a 2.6 x 2 x 1.2 cm magana-red atrialappendage. The specimen is serially sectioned and no gross lesions are identified. Meat Grader sections are submitted in cassette A. Technical component performed at [address], [place] [address] Unless gross only, the diagnosis is based upon microscopic examination.Immunohistochemistry : This test was developed and its performance characteristicsdetermined by this laboratory. It has not been approved nor does it need approvalby the [place] FDA. Appropriate positive and negative controls are reviewed and judgedto be acceptable for performedimmunohistochemistry and/or special stains. This laboratoryis certified under the Clinical Laboratory Improvement Amendments (CLIA-88) as qualified toperform high complexity clinical laboratory testing. MICROSCOPIC DESCRIPTION A microscopic examination was performed. CLINICAL INFORMATION CAD Signed SIGNATURE ON FILE Tano Cohn 11/19/23 1253 END OF REPORT GLUCOSE [id number] 12:37:00* Test Item Value Reference Range Interpretation Comme [facility] GLUCOSE BEDSIDE (test code = GLUBED) 249 MG/DL 70-110 H Performed by cer tified radiotelegraph operator servicer at [facility] GLUCOSE [id number] 08:25:00* Test Item Value Reference Range Interpretation Comme [facility] GLUCOSE BEDSIDE (test code = GLUBED) 222 MG/DL 70-110 H Performed by cer tified radiotelegraph operator servicer at [facility] BASIC METABOLIC [id number] 03:27:00* Test Item Value Reference Range Interpretation Comme [facility] SODIUM (test code = NA) 140 mEq/L 134-147 N POTASSIUM (test code = K) 3.6 mEq/L 3.4-5.0 N CHLORIDE (test code = CL) 102 mEq/L 100-108 N CARBON DIOXIDE (test code = CO2) 30 mEq/l 21-33 N ANION GAP (test code = GAP) 12 0-20 N GLUCOSE (test code = GLU) 186 mg/dL 77-141 H BLOOD UREA NITROGEN (test code = BUN) 34 mg/dL 7-25 H GLOMERULAR FILTRATION RATE (test code = GFR) 69.1 70-80 L The Glomerular Filtration Rate is a calculated parameterbased on serum Creatinine, patient age and sex. GFR valuesless than 60 mL/min/1.73 square meters are indicative ofChronic Kidney Disease. Values less than 15 mL/min/1.73square meters indicate Kidney failure. The calculation forGFR is based on the CKD-EPI (2020) calculation. This formulais race indifferent and is the recommended formula for GFRby the National Kidney Foundation for Adults.The GFR will not calculate if the sex is unknown or if thepatient's age is <18 years. CREATININE (test code = CREAT) 1.1 mg/dL 0.6-1.3 N CALCIUM (test code = CA) 9.6 mg/dL 8.0-10.5 N [id number] 03:27:00* Test Item Value Reference Range Interpretation Comme nts MAGNESIUM (test code = MAG) 1.75 mg/dL 1.6-2.6 N CBC W/AUTO [id number] 02:51:00* Test Item Value Reference Range Interpretation Comme nts WHITE BLOOD CELL (test code = WBC) 12.9 x10 3/uL 4.5-11.0 H RED BLOOD CELL (test code = RBC) 3.76 x10 6/uL 4.00-5.60 L HEMOGLOBIN (test code = HGB) 11.3 g/dL 12.5-16.9 L HEMATOCRIT (test code = HCT) 35.2 % 37.5-50.7 L MEAN CELL VOLUME (test code = MCV) 93.6 fL 81.0-99.0 N MEAN CELL HGB (test code = MCH) 30.1 pg 27.0-33.0 N MEAN CELL HGB CONCETRATION (test code = MCHC) 32.1 g/dL 33.0-37.0 L RED CELL DISTRIBUTION WIDTH CV (test code = RDW) 15.9 % 11.5-14.5 H RED CELL DISTRIBUTION WIDTH SD (test code = RDW-SD) 54.2 fL 37.0-54.0 H PLATELET COUNT (test code = PLT) 216 x10 3/uL 150-400 N MEAN PLATELET VOLUME (test c ode = MPV) 9.8 fL 7.0-9.0 H NEUTROPHIL % (test code = NT%) 77.6 % 56.0-77.0 H IMMATURE GRANULOCYTE % (test code = IG%) 0.3 % 0.0-2.0 N LYMPHOCYTE % (test code = LY%) 11.6 % 14.0-32.0 L MONOCYTE % (test code = MO%) 7.1 % 4.8-9.0 N EOSINOPHIL % (test code = EO%) 3.0 % 0.3-3.7 N BASOPHIL % (test code = BA%) 0.4 % 0.0-2.0 N NUCLEATED RBC % (test code = NRBC%) 0.0 % 0-0 N NEUTROPHIL # (test code = NT#) 9.99 x10 3/uL 2.0-7.6 H IMMATURE GRANULOCYTE # (test code = IG#) 0.04 x10 3/uL 0.00-0.03 H LYMPHOCYTE # (test code = LY#) 1.50 x10 3/uL 1.0-3.8 N MONOCYTE # (test code = MO#) 0.92 x10 3/uL 0.1-0.8 H EOSINOPHIL # (test code = EO#) 0.39 x10 3/uL 0.0-0.2 H BASOPHIL # (test code = BA#) 0.05 x10 3/uL 0.0-0.2 N NUCLEATED RBC # (test code = NRBC#) 0.00 x10 3/uL 0.0-0.1 N GLUCOSE [id number] 20:47:00* Test Item Value Reference Range Interpretation Comme nts GLUCOSE BEDSIDE (test code = GLUBED) 197 MG/DL 70-110 H Performed by cer tified radiotelegraph operator servicer at [facility] GLUCOSE [id number] 17:14:00* Test Item Value Reference Range Interpretation Comme nts GLUCOSE BEDSIDE (test code = GLUBED) 211 MG/DL 70-110 H Performed by [employer] tified radiotelegraph operator servicer at [facility] GLUCOSE [id number] 12:12:00* Test Item Value Reference Range Interpretation Comme nts GLUCOSE BEDSIDE (test code = GLUBED) 216 MG/DL 70-110 H Performed by Domob radiotelegraph operator servicer at [facility] BASIC METABOLIC [id number] 04:19:00* Test Item Value Reference Range Interpretation Comme nts SODIUM (test code = NA) 142 mEq/L 134-147 N POTASSIUM (test code = K) 4.2 mEq/L 3.4-5.0 N CHLORIDE (test code = CL) 105 mEq/L 100-108 N CARBON DIOXIDE (test code = CO2) 30 mEq/l 21-33 N ANION GAP (test code = GAP) 11 0-20 N GLUCOSE (test code = GLU) 205 mg/dL 77-141 H BLOOD UREA NITROGEN (test code = BUN) 31 mg/dL 7-25 H GLOMERULAR FILTRATION RATE (test code = GFR) 78.0 70-80 N The Glomerular Filtration Rate is a calculated parameterbased on serum Creatinine, patient age and sex. GFR valuesless than 60 mL/min/1.73 square meters are indicative ofChronic Kidney Disease. Values less than 15 mL/min/1.73square meters indicate Kidney failure. The calculation forGFR is based on the CKD-EPI (2020) calculation. This formulais race indifferent and is the recommended formula for GFRby the National Kidney Foundation for Adults.The GFR will not calculate if the sex is unknown or if thepatient's age is <18 years. CREATININE (test code = CREAT) 1.0 mg/dL 0.6-1.3 N CALCIUM (test code = CA) 8.5 mg/dL 8.0-10.5 N COMMENTS: POD #1HEPATIC FUNCTION [id number] 04:19:00* Test Item Value Reference Range Interpretation Comme nts TOTAL PROTEIN (test code = PROT) 6.3 g/dL 6.4-8.2 L ALBUMIN (test code = ALB) 3.60 g/dL 3.4-5.0 N BILIRUBIN TOTAL (test code = BILT) 0.80 mg/dL 0.0-1.0 N BILIRUBIN DIRECT (test code = BILD) 0.50 MG/DL 0.1-0.3 H BILIRUBIN INDIRECT (test cod e = BILIND) 0.30 MG/DL SGOT/AST (test code = AST) 39 IUnit/L 8-34 H SGPT/ALT (test code = ALT) 48 IUnit/L 10-49 N ALKALINE PHOSPHATASE TOTAL ( test code = ALKP) 99 IUnit/L 20-125 N COMMENTS: POD #[id number] 04:19:00* Test Item Value Reference Range Interpretation Comme nts PHOSPHOROUS (test code = PHOS) 2.6 MG/DL 2.5-4.9 N COMMENTS: POD #[id number] 04:19:00* Test Item Value Reference Range Interpretation Comme nts MAGNESIUM (test code = MAG) 1.98 mg/dL 1.6-2.6 N COMMENTS: POD #1CALCIUM [id number] 04:19:00* Test Item Value Reference Range Interpretation Comme nts CALCIUM IONIZED (test code = FLAKITA) 1.13 MMOL/L 1.09-1.30 N COMMENTS: POD #1CBC W/AUTO [id number] 03:48:00* Test Item Value Reference Range Interpretation Comme nts WHITE BLOOD CELL (test code = WBC) 12.3 x10 3/uL 4.5-11.0 H RED BLOOD CELL (test code = RBC) 3.43 x10 6/uL 4.00-5.60 L HEMOGLOBIN (test code = HGB) 10.1 g/dL 12.5-16.9 L HEMATOCRIT (test code = HCT) 31.9 % 37.5-50.7 L MEAN CELL VOLUME (test code = MCV) 93.0 fL 81.0-99.0 N MEAN CELL HGB (test code = MCH) 29.4 pg 27.0-33.0 N MEAN CELL HGB CONCETRATION (test code = MCHC) 31.7 g/dL 33.0-37.0 L RED CELL DISTRIBUTION WIDTH CV (test code = RDW) 16.3 % 11.5-14.5 H RED CELL DISTRIBUTION WIDTH SD (test code = RDW-SD) 56.0 fL 37.0-54.0 H PLATELET COUNT (test code = PLT) 145 x10 3/uL 150-400 L MEAN PLATELET VOLUME (test c ode = MPV) 9.8 fL 7.0-9.0 H NEUTROPHIL % (test code = NT%) 80.2 % 56.0-77.0 H IMMATURE GRANULOCYTE % (test code = IG%) 0.3 % 0.0-2.0 N LYMPHOCYTE % (test code = LY%) 10.9 % 14.0-32.0 L MONOCYTE % (test code = MO%) 7.6 % 4.8-9.0 N EOSINOPHIL % (test code = EO%) 0.8 % 0.3-3.7 N BASOPHIL % (test code = BA%) 0.2 % 0.0-2.0 N NUCLEATED RBC % (test code = NRBC%) 0.0 % 0-0 N NEUTROPHIL # (test code = NT#) 9.86 x10 3/uL 2.0-7.6 H IMMATURE GRANULOCYTE # (test code = IG#) 0.04 x10 3/uL 0.00-0.03 H LYMPHOCYTE # (test code = LY#) 1.34 x10 3/uL 1.0-3.8 N MONOCYTE # (test code = MO#) 0.94 x10 3/uL 0.1-0.8 H EOSINOPHIL # (test code = EO#) 0.10 x10 3/uL 0.0-0.2 N BASOPHIL # (test code = BA#) 0.03 x10 3/uL 0.0-0.2 N NUCLEATED RBC # (test code = NRBC#) 0.00 x10 3/uL 0.0-0.1 N BASIC METABOLIC [id number] 20:44:00* Test Item Value Reference Range Interpretation Comme nts SODIUM (test code = NA) 138 mEq/L 134-147 N POTASSIUM (test code = K) 4.1 mEq/L 3.4-5.0 N CHLORIDE (test code = CL) 103 mEq/L 100-108 N CARBON DIOXIDE (test code = CO2) 29 mEq/l 21-33 N ANION GAP (test code = GAP) 10 0-20 N GLUCOSE (test code = GLU) 240 mg/dL 77-141 H BLOOD UREA NITROGEN (test code = BUN) 32 mg/dL 7-25 H GLOMERULAR FILTRATION RATE (test code = GFR) 69.6 70-80 L The Glomerular Filtration Rate is a calculated parameterbased on serum Creatinine, patient age and sex. GFR valuesless than 60 mL/min/1.73 square meters are indicative ofChronic Kidney Disease. Values less than 15 mL/min/1.73square meters indicate Kidney failure. The calculation forGFR is based on the CKD-EPI (2020) calculation. This formulais race indifferent and is the recommended formula for GFRby the National Kidney Foundation for Adults.The GFR will not calculate if the sex is unknown or if thepatient's age is <18 years. CREATININE (test code = CREAT) 1.1 mg/dL 0.6-1.3 N CALCIUM (test code = CA) 8.6 mg/dL 8.0-10.5 N GLUCOSE [id number] 20:40:00* Test Item Value Reference Range Interpretation Comme nts GLUCOSE BEDSIDE (test code = GLUBED) 237 MG/DL 70-110 H Performed by cer tified radiotelegraph operator servicer at [facility] GLUCOSE [id number] 16:52:00* Test Item Value Reference Range Interpretation Comme nts GLUCOSE BEDSIDE (test code = GLUBED) 285 MG/DL 70-110 H Performed by cer tified radiotelegraph operator servicer at [facility] GLUCOSE [id number] 11:07:00* Test Item Value Reference Range Interpretation Comme nts GLUCOSE BEDSIDE (test code = GLUBED) 300 MG/DL 70-110 H Performed by cer shy radiotelegraph operator servicer at [facility] BASIC METABOLIC [id number] 04:05:00* Test Item Value Reference Range Interpretation Comme nts SODIUM (test code = NA) 139 mEq/L 134-147 N POTASSIUM (test code = K) 4.5 mEq/L 3.4-5.0 N CHLORIDE (test code = CL) 106 mEq/L 100-108 N CARBON DIOXIDE (test code = CO2) 27 mEq/l 21-33 N ANION GAP (test code = GAP) 11 0-20 N GLUCOSE (test code = GLU) 212 mg/dL 77-141 H BLOOD UREA NITROGEN (test code = BUN) 30 mg/dL 7-25 H GLOMERULAR FILTRATION RATE (test code = GFR) 62.7 70-80 L The Glomerular Filtration Rate is a calculated parameterbased on serum Creatinine, patient age and sex. GFR valuesless than 60 mL/min/1.73 square meters are indicative ofChronic Kidney Disease. Values less than 15 mL/min/1.73square meters indicate Kidney failure. The calculation forGFR is based on the CKD-EPI (202) calculation. This formulais race indifferent and is the recommended formula for GFRby the National Kidney Foundation for Adults.The GFR will not calculate if the sex is unknown or if thepatient's age is <18 years. CREATININE (test code = CREAT) 1.2 mg/dL 0.6-1.3 N CALCIUM (test code = CA) 8.6 mg/dL 8.0-10.5 N COMMENTS: POD #1HEPATIC FUNCTION [id number] 04:05:00* Test Item Value Reference Range Interpretation Comme nts TOTAL PROTEIN (test code = PROT) 6.2 g/dL 6.4-8.2 L ALBUMIN (test code = ALB) 3.90 g/dL 3.4-5.0 N BILIRUBIN TOTAL (test code = BILT) 0.90 mg/dL 0.0-1.0 N BILIRUBIN DIRECT (test code = BILD) 0.60 MG/DL 0.1-0.3 H BILIRUBIN INDIRECT (test cod e = BILIND) 0.30 MG/DL SGOT/AST (test code = AST) 43 IUnit/L 8-34 H SGPT/ALT (test code = ALT) 44 IUnit/L 10-49 N ALKALINE PHOSPHATASE TOTAL ( test code = ALKP) 78 IUnit/L 20-125 N COMMENTS: POD #[id number] 04:05:00* Test Item Value Reference Range Interpretation Comme nts MAGNESIUM (test code = MAG) 2.22 mg/dL 1.6-2.6 N COMMENTS: POD #1POC ARTERIAL BLOOD [id number] 03:59:00* Test Item Value Reference Range Interpretation Comme nts POC ARTERIAL BLOOD GAS PH (t est code = POCPHA) 7.410 7.35-7.45 N POC ARTERIAL BLOOD GAS PCO2 (test code = [id number]) 42.4 mmHg 35.0-45 N POC TCO2 ARTERIAL (test code = POCTCO2) 28.2 POC ARTERIAL BLOOD GAS PO2 ( test code = EVOPX6T) 67.4 mmHg 80-100.0 L POC HCO3 ARTERIAL (test code = NOCIPI9F) 26.9 MMOL/L 22.0-26.0 H POC BASE EXCESS (test code = POCBEA) 2.2 MMOL/L -4.0-4.0 N POC O2 SATURATION (test code = POCO2S) 93.2 % 90-100 N ABG DELIVERY (test code = ESPERANZA) Cannula ABG TEMPERATURE (test code = TEMPA) 98.9 F ABG SITE (test code = SITEA) R Brach CBC W/AUTO [id number] 03:39:00* Test Item Value Reference Range Interpretation Comme nts WHITE BLOOD CELL (test code = WBC) 12.0 x10 3/uL 4.5-11.0 H RED BLOOD CELL (test code = RBC) 3.34 x10 6/uL 4.00-5.60 L HEMOGLOBIN (test code = HGB) 9.9 g/dL 12.5-16.9 L HEMATOCRIT (test code = HCT) 31.2 % 37.5-50.7 L MEAN CELL VOLUME (test code = MCV) 93.4 fL 81.0-99.0 MEAN CELL HGB (test code = MCH) 29.6 pg 27.0-33.0 N MEAN CELL HGB CONCETRATION (test code = MCHC) 31.7 g/dL 33.0-37.0 L RED CELL DISTRIBUTION WIDTH CV (test code = RDW) 16.6 % 11.5-14.5 H RED CELL DISTRIBUTION WIDTH SD (test code = RDW-SD) 55.7 fL 37.0-54.0 H PLATELET COUNT (test code = PLT) 129 x10 3/uL 150-400 L MEAN PLATELET VOLUME (test c ode = MPV) 9.3 fL 7.0-9.0 H NEUTROPHIL % (test code = NT%) 80.2 % 56.0-77.0 H IMMATURE GRANULOCYTE % (test code = IG%) 0.3 % 0.0-2.0 N LYMPHOCYTE % (test code = LY%) 10.0 % 14.0-32.0 L MONOCYTE % (test code = MO%) 9.2 % 4.8-9.0 H EOSINOPHIL % (test code = EO%) 0.1 % 0.3-3.7 L BASOPHIL % (test code = BA%) 0.2 % 0.0-2.0 N NUCLEATED RBC % (test code = NRBC%) 0.0 % 0-0 N NEUTROPHIL # (test code = NT#) 9.64 x10 3/uL 2.0-7.6 H IMMATURE GRANULOCYTE # (test code = IG#) 0.04 x10 3/uL 0.00-0.03 H LYMPHOCYTE # (test code = LY#) 1.20 x10 3/uL 1.0-3.8 N MONOCYTE # (test code = MO#) 1.10 x10 3/uL 0.1-0.8 H EOSINOPHIL # (test code = EO#) 0.01 x10 3/uL 0.0-0.2 N BASOPHIL # (test code = BA#) 0.02 x10 3/uL 0.0-0.2 N NUCLEATED RBC # (test code = NRBC#) 0.00 x10 3/uL 0.0-0.1 N GLUCOSE [id number] 00:16:00* Test Item Value Reference Range Interpretation Comme [facility] GLUCOSE BEDSIDE (test code = GLUBED) 196 MG/DL 70-110 H Performed by cer tified radiotelegraph operator servicer at [facility] GLUCOSE [id number] 18:35:00* Test Item Value Reference Range Interpretation Comme [facility] GLUCOSE BEDSIDE (test code = GLUBED) 210 MG/DL 70-110 H Performed by cer tified radiotelegraph operator servicer at [facility] GLUCOSE [id number] 11:47:00* Test Item Value Reference Range Interpretation Comme nts GLUCOSE BEDSIDE (test code = GLUBED) 249 MG/DL 70-110 H Performed by cer tified radiotelegraph operator servicer at [facility] GLUCOSE [id number] 07:27:00* Test Item Value Reference Range Interpretation Comme nts GLUCOSE BEDSIDE (test code = GLUBED) 195 MG/DL 70-110 H Performed by cer tified radiotelegraph operator servicer at [facility] CBC W/AUTO [id number] 04:01:00* Test Item Value Reference Range Interpretation Comme nts WHITE BLOOD CELL (test code = WBC) 11.6 x10 3/uL 4.5-11.0 H RED BLOOD CELL (test code = RBC) 3.54 x10 6/uL 4.00-5.60 L HEMOGLOBIN (test code = HGB) 10.5 g/dL 12.5-16.9 L HEMATOCRIT (test code = HCT) 32.0 % 37.5-50.7 L MEAN CELL VOLUME (test code = MCV) 90.4 fL 81.0-99.0 N MEAN CELL HGB (test code = MCH) 29.7 pg 27.0-33.0 N MEAN CELL HGB CONCETRATION (test code = MCHC) 32.8 g/dL 33.0-37.0 L RED CELL DISTRIBUTION WIDTH CV (test code = RDW) 15.9 % 11.5-14.5 H RED CELL DISTRIBUTION WIDTH SD (test code = RDW-SD) 51.5 fL 37.0-54.0 N PLATELET COUNT (test code = PLT) 143 x10 3/uL 150-400 L MEAN PLATELET VOLUME (test c ode = MPV) 9.3 fL 7.0-9.0 H NEUTROPHIL % (test code = NT%) 81.6 % 56.0-77.0 H IMMATURE GRANULOCYTE % (test code = IG%) 0.4 % 0.0-2.0 N LYMPHOCYTE % (test code = LY%) 8.3 % 14.0-32.0 L MONOCYTE % (test code = MO%) 9.6 % 4.8-9.0 H EOSINOPHIL % (test code = EO%) 0.0 % 0.3-3.7 L BASOPHIL % (test code = BA%) 0.1 % 0.0-2.0 N NUCLEATED RBC % (test code = NRBC%) 0.0 % 0-0 N NEUTROPHIL # (test code = NT#) 9.47 x10 3/uL 2.0-7.6 H IMMATURE GRANULOCYTE # (test code = IG#) 0.05 x10 3/uL 0.00-0.03 H LYMPHOCYTE # (test code = LY#) 0.96 x10 3/uL 1.0-3.8 L MONOCYTE # (test code = MO#) 1.12 x10 3/uL 0.1-0.8 H EOSINOPHIL # (test code = EO#) 0.00 x10 3/uL 0.0-0.2 N BASOPHIL # (test code = BA#) 0.01 x10 3/uL 0.0-0.2 N NUCLEATED RBC # (test code = NRBC#) 0.00 x10 3/uL 0.0-0.1 N BASIC METABOLIC [id number] 03:57:00* Test Item Value Reference Range Interpretation Comme nts SODIUM (test code = NA) 141 mEq/L 134-147 N POTASSIUM (test code = K) 4.2 mEq/L 3.4-5.0 N CHLORIDE (test code = CL) 108 mEq/L 100-108 N CARBON DIOXIDE (test code = CO2) 26 mEq/l 21-33 ANION GAP (test code = GAP) 11 0-20 N GLUCOSE (test code = GLU) 142 mg/dL 77-141 H BLOOD UREA NITROGEN (test code = BUN) 20 mg/dL 7-25 N GLOMERULAR FILTRATION RATE (test code = GFR) 69.6 70-80 L The Glomerular Filtration Rate is a calculated parameterbased on serum Creatinine, patient age and sex. GFR valuesless than 60 mL/min/1.73 square meters are indicative ofChronic Kidney Disease. Values less than 15 mL/min/1.73square meters indicate Kidney failure. The calculation forGFR is based on the CKD-EPI (2020) calculation. This formulais race indifferent and is the recommended formula for GFRby the National Kidney Foundation for Adults.The GFR will not calculate if the sex is unknown or if thepatient's age is <18 years. CREATININE (test code = CREAT) 1.1 mg/dL 0.6-1.3 N CALCIUM (test code = CA) 8.4 mg/dL 8.0-10.5 N COMMENTS: POD #1HEPATIC FUNCTION [id number] 03:57:00* Test Item Value Reference Range Interpretation Comme nts TOTAL PROTEIN (test code = PROT) 5.8 g/dL 6.4-8.2 L ALBUMIN (test code = ALB) 3.70 g/dL 3.4-5.0 N BILIRUBIN TOTAL (test code = BILT) 0.80 mg/dL 0.0-1.0 BILIRUBIN DIRECT (test code = BILD) 0.50 MG/DL 0.1-0.3 H BILIRUBIN INDIRECT (test cod e = BILIND) 0.30 MG/DL SGOT/AST (test code = AST) 54 IUnit/L 8-34 H SGPT/ALT (test code = ALT) 45 IUnit/L 10-49 N ALKALINE PHOSPHATASE TOTAL ( test code = ALKP) 75 IUnit/L 20-125 N COMMENTS: POD #[id number] 03:57:00* Test Item Value Reference Range Interpretation Comme nts MAGNESIUM (test code = MAG) 2.13 mg/dL 1.6-2.6 N COMMENTS: POD #1POC ARTERIAL BLOOD [id number] 03:16:00* Test Item Value Reference Range Interpretation Comme nts POC ARTERIAL BLOOD GAS PH (t est code = POCPHA) 7.371 7.35-7.45 N POC ARTERIAL BLOOD GAS PCO2 (test code = XODECG7C) 46.6 mmHg 35.0-45 H POC TCO2 ARTERIAL (test code = POCTCO2) 28.4 POC ARTERIAL BLOOD GAS PO2 ( test code = ZFCIB8L) 80.7 mmHg 80-100.0 N POC HCO3 ARTERIAL (test code = ZAQPZK9D) 27.0 MMOL/L 22.0-26.0 H POC BASE EXCESS (test code = POCBEA) 1.7 MMOL/L -4.0-4.0 N POC O2 SATURATION (test code = POCO2S) 95.4 % 90-100 N ABG DELIVERY (test code = ESPERANZA) Cannula ABG TEMPERATURE (test code = TEMPA) 98.3 F ABG SITE (test code = SITEA) Art Line GLUCOSE [id number] 22:51:00* Test Item Value Reference Range Interpretation Comme nts GLUCOSE BEDSIDE (test code = GLUBED) 146 MG/DL 70-110 H Performed by cer tified radiotelegraph operator servicer at [facility] GLUCOSE [id number] 19:42:00* Test Item Value Reference Range Interpretation Comme nts GLUCOSE BEDSIDE (test code = GLUBED) 130 MG/DL 70-110 H Performed by cer tified radiotelegraph operator servicer at [facility] GLUCOSE [id number] 17:37:00* Test Item Value Reference Range Interpretation Comme nts GLUCOSE BEDSIDE (test code = GLUBED) 143 MG/DL 70-110 H Performed by cer tified radiotelegraph operator servicer at [facility] POC ARTERIAL BLOOD [id number] 15:25:00* Test Item Value Reference Range Interpretation Comme nts POC ARTERIAL BLOOD GAS PH (t est code = POCPHA) 7.349 7.35-7.45 L POC ARTERIAL BLOOD GAS PCO2 (test code = DYTJTA0F) 41.1 mmHg 35.0-45 N POC TCO2 ARTERIAL (test code = POCTCO2) 23.9 POC ARTERIAL BLOOD GAS PO2 ( test code = IFAGF1C) 94.9 mmHg 80-100.0 N POC HCO3 ARTERIAL (test code = SZSDII5B) 22.7 MMOL/L 22.0-26.0 N POC BASE EXCESS (test code = POCBEA) -2.9 MMOL/L -4.0-4.0 N POC O2 SATURATION (test code = POCO2S) 97.0 % 90-100 N BASIC METABOLIC [id number] 15:25:00* Test Item Value Reference Range Interpretation Comme nts SODIUM (test code = NA/ABG) 141 mmol/L 134-147 N POTASSIUM (test code = K/ABG) 3.8 mmol/L 3.4-5.0 N CHLORIDE (test code = CL/ABG) 107 mmol/L 100-108 N CREATININE ABG (test code = CREAABG) 0.8 mg/dL 0.8-1.3 N POC IONIZED CALCIUM (test co de = POCCA) 1.17 MMOL/L 1.12-1.32 N POC GLUCOSE (test code = POCGLU) 225 MG/DL 70-110 H HEMOGLOBIN [id number] 15:25:00* Test Item Value Reference Range Interpretation Comme nts HEMOGLOBIN ABG (test code = HGB/ABG) 13.1 G/DL 12.5-16.9 N [id number] 15:25:00* Test Item Value Reference Range Interpretation Comme nts HEMATOCRIT (test code = HCT/ABG) 38 % 37.5-50.7 N POC ARTERIAL BLOOD [id number] 14:13:00* Test Item Value Reference Range Interpretation Comme nts POC ARTERIAL BLOOD GAS PH (t est code = POCPHA) 7.321 7.35-7.45 L POC ARTERIAL BLOOD GAS PCO2 (test code = RVRCRZ1P) 40.1 mmHg 35.0-45 N POC TCO2 ARTERIAL (test code = POCTCO2) 21.9 POC ARTERIAL BLOOD GAS PO2 ( test code = KRRBS5W) 84.4 mmHg 80-100.0 N POC HCO3 ARTERIAL (test code = RJUHMF9L) 20.7 MMOL/L 22.0-26.0 L POC BASE EXCESS (test code = POCBEA) -5.4 MMOL/L -4.0-4.0 L POC O2 SATURATION (test code = POCO2S) 95.5 % 90-100 N BASIC METABOLIC [id number] 14:13:00* Test Item Value Reference Range Interpretation Comme nts SODIUM (test code = NA/ABG) 139 mmol/L 134-147 N POTASSIUM (test code = K/ABG) 3.6 mmol/L 3.4-5.0 N CHLORIDE (test code = CL/ABG) 107 mmol/L 100-108 N CREATININE ABG (test code = CREAABG) 1.0 mg/dL 0.8-1.3 N POC IONIZED CALCIUM (test co de = POCCA) 1.18 MMOL/L 1.12-1.32 N POC GLUCOSE (test code = POCGLU) 253 MG/DL 70-110 H HEMOGLOBIN [id number] 14:13:00* Test Item Value Reference Range Interpretation Comme nts HEMOGLOBIN ABG (test code = HGB/ABG) 12.2 G/DL 12.5-16.9 L [id number] 14:13:00* Test Item Value Reference Range Interpretation Comme nts HEMATOCRIT (test code = HCT/ABG) 36 % 37.5-50.7 L POC LACTIC [id number] 14:13:00* Test Item Value Reference Range Interpretation Comme nts POC LACTIC ACID (test code = POCLAC) 1.9 mmol/l 0.9-1.7 H POC ARTERIAL BLOOD [id number] 13:36:00* Test Item Value Reference Range Interpretation Comme nts POC ARTERIAL BLOOD GAS PH (t est code = POCPHA) 7.322 7.35-7.45 L POC ARTERIAL BLOOD GAS PCO2 (test code = URZVGK0K) 40.8 mmHg 35.0-45 N POC TCO2 ARTERIAL (test code = POCTCO2) 22.4 POC ARTERIAL BLOOD GAS PO2 ( test code = UKPFZ2X) 86.8 mmHg 80-100.0 N POC HCO3 ARTERIAL (test code = [id number]) 21.1 MMOL/L 22.0-26.0 L POC BASE EXCESS (test code = POCBEA) -5.0 MMOL/L -4.0-4.0 L POC O2 SATURATION (test code = POCO2S) 95.8 % 90-100 N BASIC METABOLIC [id number] 13:36:00* Test Item Value Reference Range Interpretation Comme nts SODIUM (test code = NA/ABG) 141 mmol/L 134-147 N POTASSIUM (test code = K/ABG) 3.7 mmol/L 3.4-5.0 N CHLORIDE (test code = CL/ABG) 105 mmol/L 100-108 N CREATININE ABG (test code = CREAABG) 0.9 mg/dL 0.8-1.3 N POC IONIZED CALCIUM (test co de = POCCA) 1.18 MMOL/L 1.12-1.32 N POC GLUCOSE (test code = POCGLU) 231 MG/DL 70-110 H HEMOGLOBIN [id number] 13:36:00* Test Item Value Reference Range Interpretation Comme nts HEMOGLOBIN ABG (test code = HGB/ABG) 12.2 G/DL 12.5-16.9 L [id number] 13:36:00* Test Item Value Reference Range Interpretation Comme nts HEMATOCRIT (test code = HCT/ABG) 36 % 37.5-50.7 L PROTHROMBIN [id number] 13:24:00* Test Item Value Reference Range Interpretation Comme [facility] PROTHROMBIN TIME PATIENT (test code = PTP) 14.9 SECONDS 9.3-12.9 H INTERNATIONAL NORMAL RATIO (test code = INR) 1.3 0.8-1.2 H TARGET INR BY INDICATION Indication INR1. Prophylaxis of venous thrombosis 2.0 - 3.0 (orthopedic surgery), Prophylaxis of venous thrombosis (other than high-risk surgery), Treatment of Deep Vein Thrombosis/Pulmonary Embolism, Prevention of systemic embolism - Tissue heart valves, Acute Myocardial Infarction (to prevent systemic embolism), Valvular heart disease, Atrial Fibrillation, Bileaflet mechanical valve in aortic position.2. Mechanical prosthetic valves (high risk), 2.5 - 3.5 Presence of Lupus Anticoagulant or Antiphospholipid Antibodies, Prevention of systemic embolism - Acute Myocardial Infarction (to prevent recurrent infarct). COMMENTS: On arrivalTHROMBOPLASTIN TIME [id number] 13:24:00* Test Item Value Reference Range Interpretation Comme [facility] THROMBOPLASTIN TIME PARTIAL (test code = PTT) 29.4 Seconds 25.0-39.5 Therapeutic Rang e: 50.4 - 88.3 Seconds Effective 06/10/2018 COMMENTS: On arrivalCB W/AUTO [id number] 13:19:00* Test Item Value Reference Range Interpretation Comme nts WHITE BLOOD CELL (test code = WBC) 23.8 x10 3/uL 4.5-11.0 H RED BLOOD CELL (test code = RBC) 3.70 x10 6/uL 4.00-5.60 L HEMOGLOBIN (test code = HGB) 11.2 g/dL 12.5-16.9 L HEMATOCRIT (test code = HCT) 33.7 % 37.5-50.7 L MEAN CELL VOLUME (test code = MCV) 91.1 fL 81.0-99.0 N MEAN CELL HGB (test code = MCH) 30.3 pg 27.0-33.0 N MEAN CELL HGB CONCETRATION (test code = MCHC) 33.2 g/dL 33.0-37.0 N RED CELL DISTRIBUTION WIDTH CV (test code = RDW) 15.8 % 11.5-14.5 H RED CELL DISTRIBUTION WIDTH SD (test code = RDW-SD) 51.3 fL 37.0-54.0 N PLATELET COUNT (test code = PLT) 227 x10 3/uL 150-400 N MEAN PLATELET VOLUME (test code = MPV) 9.0 fL 7.0-9.0 N NEUTROPHIL % (test code = NT%) 83.1 % 56.0-77.0 H IMMATURE GRANULOCYTE % (test code = IG%) 1.5 % 0.0-2.0 N LYMPHOCYTE % (test code = LY%) 9.7 % 14.0-32.0 L MONOCYTE % (test code = MO%) 4.7 % 4.8-9.0 L EOSINOPHIL % (test code = EO%) 0.7 % 0.3-3.7 N BASOPHIL % (test code = BA%) 0.3 % 0.0-2.0 N NUCLEATED RBC % (test code = NRBC%) 0.0 % 0-0 N NEUTROPHIL # (test code = NT#) 19.81 x10 3/uL 2.0-7.6 H IMMATURE GRANULOCYTE # (test code = IG#) 0.35 x10 3/uL 0.00-0.03 H LYMPHOCYTE # (test code = LY#) 2.32 x10 3/uL 1.0-3.8 N MONOCYTE # (test code = MO#) 1.12 x10 3/uL 0.1-0.8 H EOSINOPHIL # (test code = EO#) 0.16 x10 3/uL 0.0-0.2 N BASOPHIL # (test code = BA#) 0.07 x10 3/uL 0.0-0.2 N NUCLEATED RBC # (test code = NRBC#) 0.00 x10 3/uL 0.0-0.1 N COMMENTS: On arrivalBASIC METABOLIC [id number] 13:15:00* Test Item Value Reference Range Interpretation Comme nts SODIUM (test code = NA) 139 mEq/L 134-147 N POTASSIUM (test code = K) 3.8 mEq/L 3.4-5.0 N CHLORIDE (test code = CL) 107 mEq/L 100-108 N CARBON DIOXIDE (test code = CO2) 20 mEq/l 21-33 L ANION GAP (test code = GAP) 16 0-20 N GLUCOSE (test code = GLU) 223 mg/dL 77-141 H BLOOD UREA NITROGEN (test code = BUN) 21 mg/dL 7-25 N GLOMERULAR FILTRATION RATE (test code = GFR) 69.6 70-80 L The Glomerular Filtration Rate is a calculated parameterbased on serum Creatinine, patient age and sex. GFR valuesless than 60 mL/min/1.73 square meters are indicative ofChronic Kidney Disease. Values less than 15 mL/min/1.73square meters indicate Kidney failure. The calculation forGFR is based on the CKD-EPI (2020) calculation. This formulais race indifferent and is the recommended formula for GFRby the National Kidney Foundation for Adults.The GFR will not calculate if the sex is unknown or if thepatient's age is <18 years. CREATININE (test code = CREAT) 1.1 mg/dL 0.6-1.3 N CALCIUM (test code = CA) 7.7 mg/dL 8.0-10.5 L COMMENTS: On arrivalComment: On [id number] 13:15:00* Test Item Value Reference Range Interpretation Comme nts MAGNESIUM (test code = MAG) 2.26 mg/dL 1.6-2.6 COMMENTS: On arrivalComment: On [id number] 12:52:00* Test Item Value Reference Range Interpretation Comme nts HEMATOCRIT (test code = HCT/ABG) 34 % 37.5-50.7 L POC ARTERIAL BLOOD [id number] 12:52:00* Test Item Value Reference Range Interpretation Comme nts POC ARTERIAL BLOOD GAS PH (t est code = POCPHA) 7.317 7.35-7.45 L POC ARTERIAL BLOOD GAS PCO2 (test code = IZGIAS9V) 40.7 mmHg 35.0-45 N POC TCO2 ARTERIAL (test code = POCTCO2) 22.0 POC ARTERIAL BLOOD GAS PO2 ( test code = QTTIN8J) 100.6 mmHg 80-100.0 H POC HCO3 ARTERIAL (test code = VQZVAW7W) 20.8 MMOL/L 22.0-26.0 L POC BASE EXCESS (test code = POCBEA) -5.4 MMOL/L -4.0-4.0 L POC O2 SATURATION (test code = POCO2S) 97.2 % 90-100 N FIO2 (test code = FIO2A) 60 % PaO2/FiO2 (test code = [id number]) 167.66 mm/Hg ABG DELIVERY (test code = ESPERANZA) Adult Vent ABG VENT MODE (test code = MODEA) AC ABG VENT RESP RATE (test cod e = RRA) 20 /MIN ABG TIDAL VOLUME (test code = TVA) 500 ml ABG PEEP (test code = PEEPA) 5 cmH2O ABG SITE (test code = SITEA) Art Line JERE'S TEST (test code = ALLENS) N/A BASIC METABOLIC [id number] 12:52:00* Test Item Value Reference Range Interpretation Comme nts SODIUM (test code = NA/ABG) 139 mmol/L 134-147 N POTASSIUM (test code = K/ABG) 3.9 mmol/L 3.4-5.0 N CHLORIDE (test code = CL/ABG) 104 mmol/L 100-108 N CREATININE ABG (test code = CREAABG) 1.0 mg/dL 0.8-1.3 N POC IONIZED CALCIUM (test co de = POCCA) 1.21 MMOL/L 1.12-1.32 N POC GLUCOSE (test code = POCGLU) 225 MG/DL 70-110 H HEMOGLOBIN [id number] 12:52:00* Test Item Value Reference Range Interpretation Comme nts HEMOGLOBIN ABG (test code = HGB/ABG) 11.6 G/DL 12.5-16.9 L [id number] 12:14:00* Test Item Value Reference Range Interpretation Comme nts ACT-ISTAT (test code = ACTI) 122 SEC 74-137 N Performed by cer tified radiotelegraph operator servicer at [facility] POC ARTERIAL BLOOD [id number] 12:08:00* Test Item Value Reference Range Interpretation Comme nts POC ARTERIAL BLOOD GAS PH (t est code = POCPHA) 7.370 7.35-7.45 N POC ARTERIAL BLOOD GAS PCO2 (test code = GDSIOK0I) 33.0 mmHg 35.0-45 L POC TCO2 ARTERIAL (test code = POCTCO2) 20.1 POC ARTERIAL BLOOD GAS PO2 ( test code = LPNJN2M) 295.0 mmHg 80-100.0 HH POC HCO3 ARTERIAL (test code = IGAVAV7K) 19.1 MMOL/L 22.0-26.0 L POC BASE EXCESS (test code = POCBEA) -5.5 MMOL/L -4.0-4.0 L POC O2 SATURATION (test code = POCO2S) 99.9 % 90-100 N BASIC METABOLIC [id number] 12:08:00* Test Item Value Reference Range Interpretation Comme nts SODIUM (test code = NA/ABG) 141 mmol/L 134-147 N POTASSIUM (test code = K/ABG) 3.6 mmol/L 3.4-5.0 N CHLORIDE (test code = CL/ABG) 106 mmol/L 100-108 N CREATININE ABG (test code = CREAABG) 0.9 mg/dL 0.8-1.3 N POC IONIZED CALCIUM (test co de = POCCA) 1.21 MMOL/L 1.12-1.32 N POC GLUCOSE (test code = POCGLU) 207 MG/DL 70-110 H HEMOGLOBIN [id number] 12:08:00* Test Item Value Reference Range Interpretation Comme nts HEMOGLOBIN ABG (test code = HGB/ABG) 9.8 G/DL 12.5-16.9 L [id number] 12:08:00* Test Item Value Reference Range Interpretation Comme nts HEMATOCRIT (test code = HCT/ABG) 29 % 37.5-50.7 L POC LACTIC [id number] 12:08:00* Test Item Value Reference Range Interpretation Comme nts POC LACTIC ACID (test code = POCLAC) 2.1 mmol/l 0.9-1.7 H [id number] 11:16:00* Test Item Value Reference Range Interpretation Comme nts ACT-ISTAT (test code = ACTI) 605 SEC 74-137 H Performed by cer tified radiotelegraph operator servicer at [facility] POC ARTERIAL BLOOD [id number] 11:04:00* Test Item Value Reference Range Interpretation Comme nts POC ARTERIAL BLOOD GAS PH (t est code = POCPHA) 7.441 7.35-7.45 N POC ARTERIAL BLOOD GAS PCO2 (test code = OKMWJW0U) 34.0 mmHg 35.0-45 L POC TCO2 ARTERIAL (test code = POCTCO2) 24.2 POC ARTERIAL BLOOD GAS PO2 ( test code = KXFZQ7W) 315.7 mmHg 80-100.0 HH POC HCO3 ARTERIAL (test code = LLZSII2C) 23.2 MMOL/L 22.0-26.0 N POC BASE EXCESS (test code = POCBEA) -0.6 MMOL/L -4.0-4.0 N POC O2 SATURATION (test code = POCO2S) 99.9 % 90-100 N BASIC METABOLIC [id number] 11:04:00* Test Item Value Reference Range Interpretation Comme nts SODIUM (test code = NA/ABG) 138 mmol/L 134-147 N POTASSIUM (test code = K/ABG) 4.8 mmol/L 3.4-5.0 N CHLORIDE (test code = CL/ABG) 103 mmol/L 100-108 N CREATININE ABG (test code = CREAABG) 1.1 mg/dL 0.8-1.3 N POC IONIZED CALCIUM (test co de = POCCA) 1.07 MMOL/L 1.12-1.32 L POC GLUCOSE (test code = POCGLU) 153 MG/DL 70-110 H HEMOGLOBIN [id number] 11:04:00* Test Item Value Reference Range Interpretation Comme nts HEMOGLOBIN ABG (test code = HGB/ABG) 10.4 G/DL 12.5-16.9 L [id number] 11:04:00* Test Item Value Reference Range Interpretation Comme nts HEMATOCRIT (test code = HCT/ABG) 30 % 37.5-50.7 L POC LACTIC [id number] 11:04:00* Test Item Value Reference Range Interpretation Comme nts POC LACTIC ACID (test code = POCLAC) 1.6 mmol/l 0.9-1.7 N [id number] 10:48:00* Test Item Value Reference Range Interpretation Comme nts ACT-ISTAT (test code = ACTI) 623 SEC 74-137 H Performed by cer tified radiotelegraph operator servicer at [facility] POC ARTERIAL BLOOD [id number] 10:33:00* Test Item Value Reference Range Interpretation Comme nts POC ARTERIAL BLOOD GAS PH (t est code = POCPHA) 7.437 7.35-7.45 N POC ARTERIAL BLOOD GAS PCO2 (test code = PVSAMK6M) 35.3 mmHg 35.0-45 N POC TCO2 ARTERIAL (test code = POCTCO2) 24.9 POC ARTERIAL BLOOD GAS PO2 ( test code = FLTAC4X) 466.5 mmHg 80-100.0 HH POC HCO3 ARTERIAL (test code = BTSCWY5X) 23.8 MMOL/L 22.0-26.0 N POC BASE EXCESS (test code = POCBEA) -0.2 MMOL/L -4.0-4.0 N POC O2 SATURATION (test code = POCO2S) 100.0 % 90-100 N BASIC METABOLIC [id number] 10:33:00* Test Item Value Reference Range Interpretation Comme nts SODIUM (test code = NA/ABG) 139 mmol/L 134-147 N POTASSIUM (test code = K/ABG) 4.7 mmol/L 3.4-5.0 N CHLORIDE (test code = CL/ABG) 103 mmol/L 100-108 N CREATININE ABG (test code = CREAABG) 1.1 mg/dL 0.8-1.3 N POC IONIZED CALCIUM (test co de = POCCA) 1.00 MMOL/L 1.12-1.32 L POC GLUCOSE (test code = POCGLU) 108 MG/DL 70-110 N HEMOGLOBIN [id number] 10:33:00* Test Item Value Reference Range Interpretation Comme nts HEMOGLOBIN ABG (test code = HGB/ABG) 10.0 G/DL 12.5-16.9 L [id number] 10:33:00* Test Item Value Reference Range Interpretation Comme nts HEMATOCRIT (test code = HCT/ABG) 29 % 37.5-50.7 L POC LACTIC [id number] 10:33:00* Test Item Value Reference Range Interpretation Comme nts POC LACTIC ACID (test code = POCLAC) 1.2 mmol/l 0.9-1.7 N [id number] 10:28:00* Test Item Value Reference Range Interpretation Comme nts ACT-ISTAT (test code = ACTI) 428 SEC 74-137 H Performed by cer tified radiotelegraph operator servicer at [facility] POC ARTERIAL BLOOD [id number] 10:14:00* Test Item Value Reference Range Interpretation Comme nts POC ARTERIAL BLOOD GAS PH (t est code = POCPHA) 7.341 7.35-7.45 L POC ARTERIAL BLOOD GAS PCO2 (test code = GAHSMW9K) 36.2 mmHg 35.0-45 N POC TCO2 ARTERIAL (test code = POCTCO2) 20.7 POC ARTERIAL BLOOD GAS PO2 ( test code = FYYYK5J) 449.0 mmHg 80-100.0 HH POC HCO3 ARTERIAL (test code = QWHIAS8D) 19.5 MMOL/L 22.0-26.0 L POC BASE EXCESS (test code = POCBEA) -5.6 MMOL/L -4.0-4.0 L POC O2 SATURATION (test code = POCO2S) 100.0 % 90-100 N BASIC METABOLIC [id number] 10:14:00* Test Item Value Reference Range Interpretation Comme nts SODIUM (test code = NA/ABG) 140 mmol/L 134-147 N POTASSIUM (test code = K/ABG) 4.0 mmol/L 3.4-5.0 N CHLORIDE (test code = CL/ABG) 108 mmol/L 100-108 N CREATININE ABG (test code = CREAABG) 1.1 mg/dL 0.8-1.3 POC IONIZED CALCIUM (test co de = POCCA) 1.13 MMOL/L 1.12-1.32 N POC GLUCOSE (test code = POCGLU) 81 MG/DL 70-110 N HEMOGLOBIN [id number] 10:14:00* Test Item Value Reference Range Interpretation Comme nts HEMOGLOBIN ABG (test code = HGB/ABG) 12.5 G/DL 12.5-16.9 N [id number] 10:14:00* Test Item Value Reference Range Interpretation Comme nts HEMATOCRIT (test code = HCT/ABG) 37 % 37.5-50.7 L POC LACTIC [id number] 10:14:00* Test Item Value Reference Range Interpretation Comme nts POC LACTIC ACID (test code = POCLAC) 1.1 mmol/l 0.9-1.7 N POC ARTERIAL BLOOD [id number] 09:46:00* Test Item Value Reference Range Interpretation Comme nts POC ARTERIAL BLOOD GAS PH (t est code = POCPHA) 7.392 7.35-7.45 N POC ARTERIAL BLOOD GAS PCO2 (test code = FIXBDT8D) 30.0 mmHg 35.0-45 L POC TCO2 ARTERIAL (test code = POCTCO2) 19.2 POC ARTERIAL BLOOD GAS PO2 ( test code = KBUMA8L) 427.7 mmHg 80-100.0 HH POC HCO3 ARTERIAL (test code = RTCUJB1C) 18.2 MMOL/L 22.0-26.0 L POC BASE EXCESS (test code = POCBEA) -5.7 MMOL/L -4.0-4.0 L POC O2 SATURATION (test code = POCO2S) 100.0 % 90-100 N BASIC METABOLIC [id number] 09:46:00* Test Item Value Reference Range Interpretation Comme nts SODIUM (test code = NA/ABG) 141 mmol/L 134-147 N POTASSIUM (test code = K/ABG) 3.2 mmol/L 3.4-5.0 L CHLORIDE (test code = CL/ABG) 112 mmol/L 100-108 H CREATININE ABG (test code = CREAABG) 0.9 mg/dL 0.8-1.3 N POC IONIZED CALCIUM (test co de = POCCA) 1.04 MMOL/L 1.12-1.32 L POC GLUCOSE (test code = POCGLU) 84 MG/DL 70-110 N HEMOGLOBIN [id number] 09:46:00* Test Item Value Reference Range Interpretation Comme nts HEMOGLOBIN ABG (test code = HGB/ABG) 11.5 G/DL 12.5-16.9 L [id number] 09:46:00* Test Item Value Reference Range Interpretation Comme nts HEMATOCRIT (test code = HCT/ABG) 34 % 37.5-50.7 L POC LACTIC [id number] 09:46:00* Test Item Value Reference Range Interpretation Comme nts POC LACTIC ACID (test code = POCLAC) 0.6 mmol/l 0.9-1.7 L [id number] 07:20:00* Test Item Value Reference Range Interpretation Comme nts ACT-ISTAT (test code = ACTI) 146 SEC 74-137 H Performed by cer tified radiotelegraph operator servicer at [facility] POC ARTERIAL BLOOD [id number] 07:15:00* Test Item Value Reference Range Interpretation Comme nts POC ARTERIAL BLOOD GAS PH (t est code = POCPHA) 7.399 7.35-7.45 N POC ARTERIAL BLOOD GAS PCO2 (test code = SJMJKB3E) 32.0 mmHg 35.0-45 L POC TCO2 ARTERIAL (test code = POCTCO2) 20.8 POC ARTERIAL BLOOD GAS PO2 ( test code = IQPTJ2R) 99.6 mmHg 80-100.0 N POC HCO3 ARTERIAL (test code = CLGCDO9D) 19.8 MMOL/L 22.0-26.0 L POC BASE EXCESS (test code = POCBEA) -4.1 MMOL/L -4.0-4.0 L POC O2 SATURATION (test code = POCO2S) 97.8 % 90-100 N BASIC METABOLIC [id number] 07:15:00* Test Item Value Reference Range Interpretation Comme nts SODIUM (test code = NA/ABG) 138 mmol/L 134-147 N POTASSIUM (test code = K/ABG) 3.6 mmol/L 3.4-5.0 N CHLORIDE (test code = CL/ABG) 105 mmol/L 100-108 N CREATININE ABG (test code = CREAABG) 0.8 mg/dL 0.8-1.3 N POC IONIZED CALCIUM (test co de = POCCA) 1.09 MMOL/L 1.12-1.32 L POC GLUCOSE (test code = POCGLU) 333 MG/DL 70-110 H HEMOGLOBIN [id number] 07:15:00* Test Item Value Reference Range Interpretation Comme nts HEMOGLOBIN ABG (test code = HGB/ABG) 13.0 G/DL 12.5-16.9 N [id number] 07:15:00* Test Item Value Reference Range Interpretation Comme nts HEMATOCRIT (test code = HCT/ABG) 38 % 37.5-50.7 N POC LACTIC [id number] 07:15:00* Test Item Value Reference Range Interpretation Comme nts POC LACTIC ACID (test code = POCLAC) 1.8 mmol/l 0.9-1.7 H BASIC METABOLIC [id number] 03:47:00* Test Item Value Reference Range Interpretation Comme nts SODIUM (test code = NA) 139 mEq/L 134-147 N POTASSIUM (test code = K) 3.4 mEq/L 3.4-5.0 N CHLORIDE (test code = CL) 109 mEq/L 100-108 H CARBON DIOXIDE (test code = CO2) 19 mEq/l 21-33 L ANION GAP (test code = GAP) 15 0-20 N GLUCOSE (test code = GLU) 165 mg/dL 77-141 H BLOOD UREA NITROGEN (test code = BUN) 18 mg/dL 7-25 N GLOMERULAR FILTRATION RATE (test code = GFR) 78.0 70-80 N The Glomerular Filtration Rate is a calculated parameterbased on serum Creatinine, patient age and sex. GFR valuesless than 60 mL/min/1.73 square meters are indicative ofChronic Kidney Disease. Values less than 15 mL/min/1.73square meters indicate Kidney failure. The calculation forGFR is based on the CKD-EPI (202) calculation. This formulais race indifferent and is the recommended formula for GFRby the National Kidney Foundation for Adults.The GFR will not calculate if the sex is unknown or if thepatient's age is <18 years. CREATININE (test code = CREAT) 1.0 mg/dL 0.6-1.3 N CALCIUM (test code = CA) 6.8 mg/dL 8.0-10.5 L [id number] 03:47:00* Test Item Value Reference Range Interpretation Comme nts MAGNESIUM (test code = MAG) 1.34 mg/dL 1.6-2.6 L CBC W/AUTO [id number] 03:26:00* Test Item Value Reference Range Interpretation Comme nts WHITE BLOOD CELL (test code = WBC) 10.2 x10 3/uL 4.5-11.0 N RED BLOOD CELL (test code = RBC) 4.09 x10 6/uL 4.00-5.60 N HEMOGLOBIN (test code = HGB) 11.9 g/dL 12.5-16.9 L HEMATOCRIT (test code = HCT) 37.4 % 37.5-50.7 L MEAN CELL VOLUME (test code = MCV) 91.4 fL 81.0-99.0 N MEAN CELL HGB (test code = MCH) 29.1 pg 27.0-33.0 N MEAN CELL HGB CONCETRATION (test code = MCHC) 31.8 g/dL 33.0-37.0 L RED CELL DISTRIBUTION WIDTH CV (test code = RDW) 15.8 % 11.5-14.5 H RED CELL DISTRIBUTION WIDTH SD (test code = RDW-SD) 52.0 fL 37.0-54.0 N PLATELET COUNT (test code = PLT) 203 x10 3/uL 150-400 N MEAN PLATELET VOLUME (test c ode = MPV) 9.2 fL 7.0-9.0 H NEUTROPHIL % (test code = NT%) 68.2 % 56.0-77.0 N IMMATURE GRANULOCYTE % (test code = IG%) 0.5 % 0.0-2.0 N LYMPHOCYTE % (test code = LY%) 19.1 % 14.0-32.0 N MONOCYTE % (test code = MO%) 8.2 % 4.8-9.0 N EOSINOPHIL % (test code = EO%) 3.2 % 0.3-3.7 N BASOPHIL % (test code = BA%) 0.8 % 0.0-2.0 N NUCLEATED RBC % (test code = NRBC%) 0.0 % 0-0 N NEUTROPHIL # (test code = NT#) 6.98 x10 3/uL 2.0-7.6 N IMMATURE GRANULOCYTE # (test code = IG#) 0.05 x10 3/uL 0.00-0.03 H LYMPHOCYTE # (test code = LY#) 1.96 x10 3/uL 1.0-3.8 N MONOCYTE # (test code = MO#) 0.84 x10 3/uL 0.1-0.8 H EOSINOPHIL # (test code = EO#) 0.33 x10 3/uL 0.0-0.2 H BASOPHIL # (test code = BA#) 0.08 x10 3/uL 0.0-0.2 N NUCLEATED RBC # (test code = NRBC#) 0.00 x10 3/uL 0.0-0.1 N COMMENTS: Daily while on heparin dripTHROMBOPLASTIN TIME [id number] 03:25:00* Test Item Value Reference Range Interpretation Comme nts THROMBOPLASTIN TIME PARTIAL (test code = PTT) 40.6 Seconds 25.0-39.5 H Therapeutic Rang e: 50.4 - 88.3 Seconds Effective 06/10/2018 COMPREHENSIVE METABOLIC [id number] 22:53:00* Test Item Value Reference Range Interpretation Comme nts SODIUM (test code = NA) 135 mEq/L 134-147 N POTASSIUM (test code = K) 4.2 mEq/L 3.4-5.0 N CHLORIDE (test code = CL) 102 mEq/L 100-108 N CARBON DIOXIDE (test code = CO2) 24 mEq/l 21-33 N ANION GAP (test code = GAP) 13 0-20 N GLUCOSE (test code = GLU) 166 mg/dL 77-141 H BLOOD UREA NITROGEN (test code = BUN) 26 mg/dL 7-25 H GLOMERULAR FILTRATION RATE (test code = GFR) 56.9 70-80 L The Glomerular Filtration Rate is a calculated parameterbased on serum Creatinine, patient age and sex. GFR valuesless than 60 mL/min/1.73 square meters are indicative ofChronic Kidney Disease. Values less than 15 mL/min/1.73square meters indicate Kidney failure. The calculation forGFR is based on the CKD-EPI (2020) calculation. This formulais race indifferent and is the recommended formula for GFRby the National Kidney Foundation for Adults.The GFR will not calculate if the sex is unknown or if thepatient's age is <18 years. CREATININE (test code = CREAT) 1.3 mg/dL 0.6-1.3 N TOTAL PROTEIN (test code = PROT) 7.3 g/dL 6.4-8.2 N ALBUMIN (test code = ALB) 3.70 g/dL 3.4-5.0 N CALCIUM (test code = CA) 9.0 mg/dL 8.0-10.5 N BILIRUBIN TOTAL (test code = BILT) 0.40 mg/dL 0.0-1.0 N SGOT/AST (test code = AST) 57 IUnit/L 8-34 H SGPT/ALT (test code = ALT) 73 IUnit/L 10-49 H ALKALINE PHOSPHATASE TOTAL (test code = ALKP) 138 IUnit/L 20-125 H PROTHROMBIN [id number] 22:44:00* Test Item Value Reference Range Interpretation Comme nts PROTHROMBIN TIME PATIENT (test code = PTP) 12.6 SECONDS 9.3-12.9 N INTERNATIONAL NORMAL RATIO (test code = INR) 1.1 0.8-1.2 N TARGET INR BY INDICATION Indication INR1. Prophylaxis of venous thrombosis 2.0 - 3.0 (orthopedic surgery), Prophylaxis of venous thrombosis (other than high-risk surgery), Treatment of Deep Vein Thrombosis/Pulmonary Embolism, Prevention of systemic embolism - Tissue heart valves, Acute Myocardial Infarction (to prevent systemic embolism), Valvular heart disease, Atrial Fibrillation, Bileaflet mechanical valve in aortic position.2. Mechanical prosthetic valves (high risk), 2.5 - 3.5 Presence of Lupus Anticoagulant or Antiphospholipid Antibodies, Prevention of systemic embolism - Acute Myocardial Infarction (to prevent recurrent infarct). THROMBOPLASTIN TIME [id number] 21:29:00* Test Item Value Reference Range Interpretation Comme nts THROMBOPLASTIN TIME PARTIAL (test code = PTT) 57.0 Seconds 25.0-39.5 H Therapeutic Rang e: 50.4 - 88.3 Seconds Effective 06/10/2018 GLUCOSE [id number] 17:39:00* Test Item Value Reference Range Interpretation Comme nts GLUCOSE BEDSIDE (test code = GLUBED) 154 MG/DL 70-110 H Performed by Domob radiotelegraph operator servicer at [facility] THROMBOPLASTIN TIME [id number] 15:33:00* Test Item Value Reference Range Interpretation Comme nts THROMBOPLASTIN TIME PARTIAL (test code = PTT) 57.3 Seconds 25.0-39.5 H Therapeutic Rang e: 50.4 - 88.3 Seconds Effective 06/10/2018 THROMBOPLASTIN TIME [id number] 11:06:00* Test Item Value Reference Range Interpretation Comme nts THROMBOPLASTIN TIME PARTIAL (test code = PTT) 87.8 Seconds 25.0-39.5 H Therapeutic Rang e: 50.4 - 88.3 Seconds Effective 06/10/2018 GLUCOSE [id number] 08:25:00* Test Item Value Reference Range Interpretation Comme nts GLUCOSE BEDSIDE (test code = GLUBED) 173 MG/DL 70-110 H Performed by Domob radiotelegraph operator servicer at [facility] UA RFLX MICR CULT IF [id number] 04:09:00* Test Item Value Reference Range Interpretation Comme nts UA COLOR (test code = COLU) STRAW YEL/STRAW UA APPEARANCE (test code = APPU) CLEAR CLEAR UA GLUCOSE DIPSTICK (test co de = DGLUU) 3+ NEGATIVE A UA BILIRUBIN DIPSTICK (test code = BILU) NEGATIVE NEGATIVE UA KETONE DIPSTICK (test cod e = KETU) NEGATIVE NEGATIVE UA SPECIFIC GRAVITY (test co de = SGU) 1.012 1.005-1.030 N UA BLOOD DIPSTICK (test code = BERE) NEGATIVE NEGATIVE UA PH DIPSTICK (test code = KATERINE) 5.0 5.0-7.0 N UA PROTEIN DIPSTICK (test co de = PROU) NEGATIVE NEGATIVE UA UROBILINIOGEN DIPSTICK (t est code = URO) 0.2 mg/dL 0.2-1.0 UA NITRITE DIPSTICK (test co de = BELKYS) NEGATIVE NEGATIVE UA LEUKOCYTE ESTERASE DIPSTI CK (test code = LEUU) TRACE NEGATIVE A UA WBC (test code = WBCU) 0-3 WBC/HPF 0-3 UA RBC (test code = RBCU) 0-3 RBC/HPF 0-3 UA WBC NO REFLEX (test code = WBCUCL) 0-3 WBC/HPF 0-3 UA BACTERIA (test code = BACU) TRACE /HPF NONE SEEN UA SQUAMOUS CELLS (test code = SQU) 0-5 /HPF NONE SEEN UA MUCUS (test code = MUCU) TRACE /LPF NONE SEEN Indication for culture: Dysuria/FrequencySpecimen Description: CLEAN CATCH THROMBOPLASTIN TIME [id number] 02:50:00* Test Item Value Reference Range Interpretation Comme nts THROMBOPLASTIN TIME PARTIAL (test code = PTT) 51.5 Seconds 25.0-39.5 H Therapeutic Rang e: 50.4 - 88.3 Seconds Effective 06/10/2018 BASIC METABOLIC [id number] 02:46:00* Test Item Value Reference Range Interpretation Comme nts SODIUM (test code = NA) 137 mEq/L 134-147 N POTASSIUM (test code = K) 3.9 mEq/L 3.4-5.0 N CHLORIDE (test code = CL) 104 mEq/L 100-108 N CARBON DIOXIDE (test code = CO2) 24 mEq/l 21-33 N ANION GAP (test code = GAP) 13 0-20 N GLUCOSE (test code = GLU) 161 mg/dL 77-141 H BLOOD UREA NITROGEN (test code = BUN) 24 mg/dL 7-25 N GLOMERULAR FILTRATION RATE (test code = GFR) 62.7 70-80 L The Glomerular Filtration Rate is a calculated parameterbased on serum Creatinine, patient age and sex. GFR valuesless than 60 mL/min/1.73 square meters are indicative ofChronic Kidney Disease. Values less than 15 mL/min/1.73square meters indicate Kidney failure. The calculation forGFR is based on the CKD-EPI (202) calculation. This formulais race indifferent and is the recommended formula for GFRby the National Kidney Foundation for Adults.The GFR will not calculate if the sex is unknown or if thepatient's age is <18 years. CREATININE (test code = CREAT) 1.2 mg/dL 0.6-1.3 N CALCIUM (test code = CA) 8.7 mg/dL 8.0-10.5 N CBC W/AUTO [id number] 02:32:00* Test Item Value Reference Range Interpretation Comme nts WHITE BLOOD CELL (test code = WBC) 10.9 x10 3/uL 4.5-11.0 N RED BLOOD CELL (test code = RBC) 4.71 x10 6/uL 4.00-5.60 N HEMOGLOBIN (test code = HGB) 14.0 g/dL 12.5-16.9 N HEMATOCRIT (test code = HCT) 42.6 % 37.5-50.7 N MEAN CELL VOLUME (test code = MCV) 90.4 fL 81.0-99.0 N MEAN CELL HGB (test code = MCH) 29.7 pg 27.0-33.0 N MEAN CELL HGB CONCETRATION (test code = MCHC) 32.9 g/dL 33.0-37.0 L RED CELL DISTRIBUTION WIDTH CV (test code = RDW) 15.7 % 11.5-14.5 H RED CELL DISTRIBUTION WIDTH SD (test code = RDW-SD) 51.7 fL 37.0-54.0 N PLATELET COUNT (test code = PLT) 223 x10 3/uL 150-400 N MEAN PLATELET VOLUME (test c ode = MPV) 9.1 fL 7.0-9.0 H NEUTROPHIL % (test code = NT%) 66.0 % 56.0-77.0 N IMMATURE GRANULOCYTE % (test code = IG%) 0.5 % 0.0-2.0 N LYMPHOCYTE % (test code = LY%) 23.7 % 14.0-32.0 N MONOCYTE % (test code = MO%) 6.5 % 4.8-9.0 N EOSINOPHIL % (test code = EO%) 2.7 % 0.3-3.7 N BASOPHIL % (test code = BA%) 0.6 % 0.0-2.0 N NUCLEATED RBC % (test code = NRBC%) 0.0 % 0-0 N NEUTROPHIL # (test code = NT#) 7.19 x10 3/uL 2.0-7.6 N IMMATURE GRANULOCYTE # (test code = IG#) 0.05 x10 3/uL 0.00-0.03 H LYMPHOCYTE # (test code = LY#) 2.59 x10 3/uL 1.0-3.8 N MONOCYTE # (test code = MO#) 0.71 x10 3/uL 0.1-0.8 N EOSINOPHIL # (test code = EO#) 0.30 x10 3/uL 0.0-0.2 H BASOPHIL # (test code = BA#) 0.07 x10 3/uL 0.0-0.2 N NUCLEATED RBC # (test code = NRBC#) 0.00 x10 3/uL 0.0-0.1 N COMMENTS: Daily while on heparin dripGLUCOSE [id number] 20:35:00* Test Item Value Reference Range Interpretation Comme [facility] GLUCOSE BEDSIDE (test code = GLUBED) 172 MG/DL 70-110 H Performed by cer tified radiotelegraph operator servicer at [facility] THROMBOPLASTIN TIME [id number] 20:13:00* Test Item Value Reference Range Interpretation Comme nts THROMBOPLASTIN TIME PARTIAL (test code = PTT) 55.7 Seconds 25.0-39.5 H Therapeutic Rang e: 50.4 - 88.3 Seconds Effective 06/10/2018 GLUCOSE [id number] 17:12:00* Test Item Value Reference Range Interpretation Comme nts GLUCOSE BEDSIDE (test code = GLUBED) 182 MG/DL 70-110 H Performed by cer tified radiotelegraph operator servicer at [facility] GLUCOSE [id number] 15:57:00* Test Item Value Reference Range Interpretation Comme nts GLUCOSE BEDSIDE (test code = GLUBED) 161 MG/DL 70-110 H Performed by cer tified radiotelegraph operator servicer at [facility] THROMBOPLASTIN TIME [id number] 13:16:00* Test Item Value Reference Range Interpretation Comme nts THROMBOPLASTIN TIME PARTIAL (test code = PTT) 57.1 Seconds 25.0-39.5 H Therapeutic Rang e: 50.4 - 88.3 Seconds Effective 06/10/2018 GLUCOSE [id number] 08:08:00* Test Item Value Reference Range Interpretation Comme nts GLUCOSE BEDSIDE (test code = GLUBED) 162 MG/DL 70-110 H Performed by cer tified radiotelegraph operator servicer at [facility] THROMBOPLASTIN TIME [id number] 05:52:00* Test Item Value Reference Range Interpretation Comme nts THROMBOPLASTIN TIME PARTIAL (test code = PTT) 76.3 Seconds 25.0-39.5 H Therapeutic Rang e: 50.4 - 88.3 Seconds Effective 06/10/2018 COMPREHENSIVE METABOLIC [id number] 05:52:00* Test Item Value Reference Range Interpretation Comme nts SODIUM (test code = NA) 138 mEq/L 134-147 N POTASSIUM (test code = K) 4.4 mEq/L 3.4-5.0 N CHLORIDE (test code = CL) 104 mEq/L 100-108 N CARBON DIOXIDE (test code = CO2) 28 mEq/l 21-33 N ANION GAP (test code = GAP) 11 0-20 N GLUCOSE (test code = GLU) 171 mg/dL 77-141 H BLOOD UREA NITROGEN (test code = BUN) 20 mg/dL 7-25 N GLOMERULAR FILTRATION RATE (test code = GFR) 62.7 70-80 L The Glomerular Filtration Rate is a calculated parameterbased on serum Creatinine, patient age and sex. GFR valuesless than 60 mL/min/1.73 square meters are indicative ofChronic Kidney Disease. Values less than 15 mL/min/1.73square meters indicate Kidney failure. The calculation forGFR is based on the CKD-EPI (202) calculation. This formulais race indifferent and is the recommended formula for GFRby the National Kidney Foundation for Adults.The GFR will not calculate if the sex is unknown or if thepatient's age is <18 years. CREATININE (test code = CREAT) 1.2 mg/dL 0.6-1.3 N TOTAL PROTEIN (test code = PROT) 7.3 g/dL 6.4-8.2 N ALBUMIN (test code = ALB) 3.60 g/dL 3.4-5.0 N CALCIUM (test code = CA) 8.9 mg/dL 8.0-10.5 N BILIRUBIN TOTAL (test code = BILT) 0.70 mg/dL 0.0-1.0 SGOT/AST (test code = AST) 73 IUnit/L 8-34 H SGPT/ALT (test code = ALT) 58 IUnit/L 10-49 H ALKALINE PHOSPHATASE TOTAL (test code = ALKP) 137 IUnit/L 20-125 H [id number] 05:52:00* Test Item Value Reference Range Interpretation Comme nts MAGNESIUM (test code = MAG) 1.71 mg/dL 1.6-2.6 N CBC W/AUTO [id number] 05:45:00* Test Item Value Reference Range Interpretation Comme nts WHITE BLOOD CELL (test code = WBC) 9.8 x10 3/uL 4.5-11.0 N RED BLOOD CELL (test code = RBC) 4.89 x10 6/uL 4.00-5.60 N HEMOGLOBIN (test code = HGB) 14.4 g/dL 12.5-16.9 N HEMATOCRIT (test code = HCT) 44.6 % 37.5-50.7 N MEAN CELL VOLUME (test code = MCV) 91.2 fL 81.0-99.0 N MEAN CELL HGB (test code = MCH) 29.4 pg 27.0-33.0 N MEAN CELL HGB CONCETRATION (test code = MCHC) 32.3 g/dL 33.0-37.0 L RED CELL DISTRIBUTION WIDTH CV (test code = RDW) 15.7 % 11.5-14.5 H RED CELL DISTRIBUTION WIDTH SD (test code = RDW-SD) 51.8 fL 37.0-54.0 N PLATELET COUNT (test code = PLT) 209 x10 3/uL 150-400 N MEAN PLATELET VOLUME (test c ode = MPV) 8.7 fL 7.0-9.0 N NEUTROPHIL % (test code = NT%) 65.8 % 56.0-77.0 N IMMATURE GRANULOCYTE % (test code = IG%) 0.4 % 0.0-2.0 N LYMPHOCYTE % (test code = LY%) 23.4 % 14.0-32.0 N MONOCYTE % (test code = MO%) 7.8 % 4.8-9.0 N EOSINOPHIL % (test code = EO%) 2.1 % 0.3-3.7 N BASOPHIL % (test code = BA%) 0.5 % 0.0-2.0 N NUCLEATED RBC % (test code = NRBC%) 0.0 % 0-0 N NEUTROPHIL # (test code = NT#) 6.45 x10 3/uL 2.0-7.6 N IMMATURE GRANULOCYTE # (test code = IG#) 0.04 x10 3/uL 0.00-0.03 H LYMPHOCYTE # (test code = LY#) 2.29 x10 3/uL 1.0-3.8 N MONOCYTE # (test code = MO#) 0.76 x10 3/uL 0.1-0.8 N EOSINOPHIL # (test code = EO#) 0.21 x10 3/uL 0.0-0.2 H BASOPHIL # (test code = BA#) 0.05 x10 3/uL 0.0-0.2 N NUCLEATED RBC # (test code = NRBC#) 0.00 x10 3/uL 0.0-0.1 N COMMENTS: Daily while on heparin dripTHROMBOPLASTIN TIME [id number] 22:39:00* Test Item Value Reference Range Interpretation Comme nts THROMBOPLASTIN TIME PARTIAL (test code = PTT) 57.6 Seconds 25.0-39.5 H Therapeutic Rang e: 50.4 - 88.3 Seconds Effective 06/10/2018 GLUCOSE [id number] 20:27:00* Test Item Value Reference Range Interpretation Comme nts GLUCOSE BEDSIDE (test code = GLUBED) 176 MG/DL 70-110 H Performed by cer tified radiotelegraph operator servicer at [facility] GLUCOSE [id number] 17:17:00* Test Item Value Reference Range Interpretation Comme nts GLUCOSE BEDSIDE (test code = GLUBED) 172 MG/DL 70-110 H Performed by cer [employer] radiotelegraph operator servicer at [facility] THROMBOPLASTIN TIME [id number] 15:54:00* Test Item Value Reference Range Interpretation Comme nts THROMBOPLASTIN TIME PARTIAL (test code = PTT) 37.2 Seconds 25.0-39.5 N Therapeutic Rang e: 50.4 - 88.3 Seconds Effective 06/10/2018 CBC W/AUTO [id number] 15:38:00* Test Item Value Reference Range Interpretation Comme nts WHITE BLOOD CELL (test code = WBC) 10.0 x10 3/uL 4.5-11.0 N RED BLOOD CELL (test code = RBC) 4.81 x10 6/uL 4.00-5.60 N HEMOGLOBIN (test code = HGB) 13.9 g/dL 12.5-16.9 N HEMATOCRIT (test code = HCT) 44.2 % 37.5-50.7 N MEAN CELL VOLUME (test code = MCV) 91.9 fL 81.0-99.0 N MEAN CELL HGB (test code = MCH) 28.9 pg 27.0-33.0 N MEAN CELL HGB CONCETRATION (test code = MCHC) 31.4 g/dL 33.0-37.0 L RED CELL DISTRIBUTION WIDTH CV (test code = RDW) 15.9 % 11.5-14.5 H RED CELL DISTRIBUTION WIDTH SD (test code = RDW-SD) 53.4 fL 37.0-54.0 N PLATELET COUNT (test code = PLT) 215 x10 3/uL 150-400 N MEAN PLATELET VOLUME (test c ode = MPV) 9.0 fL 7.0-9.0 N NEUTROPHIL % (test code = NT%) 69.6 % 56.0-77.0 N IMMATURE GRANULOCYTE % (test code = IG%) 0.3 % 0.0-2.0 N LYMPHOCYTE % (test code = LY%) 19.5 % 14.0-32.0 N MONOCYTE % (test code = MO%) 8.6 % 4.8-9.0 N EOSINOPHIL % (test code = EO%) 1.6 % 0.3-3.7 N BASOPHIL % (test code = BA%) 0.4 % 0.0-2.0 N NUCLEATED RBC % (test code = NRBC%) 0.0 % 0-0 N NEUTROPHIL # (test code = NT#) 6.94 x10 3/uL 2.0-7.6 N IMMATURE GRANULOCYTE # (test code = IG#) 0.03 x10 3/uL 0.00-0.03 N LYMPHOCYTE # (test code = LY#) 1.94 x10 3/uL 1.0-3.8 N MONOCYTE # (test code = MO#) 0.86 x10 3/uL 0.1-0.8 H EOSINOPHIL # (test code = EO#) 0.16 x10 3/uL 0.0-0.2 N BASOPHIL # (test code = BA#) 0.04 x10 3/uL 0.0-0.2 N NUCLEATED RBC # (test code = NRBC#) 0.00 x10 3/uL 0.0-0.1 N COMMENTS: Daily while on heparin dripGLUCOSE [id number] 12:45:00* Test Item Value Reference Range Interpretation Comme nts GLUCOSE BEDSIDE (test code = GLUBED) 167 MG/DL 70-110 H Performed by cer tified radiotelegraph operator servicer at [facility] GLUCOSE [id number] 09:15:00* Test Item Value Reference Range Interpretation Comme nts GLUCOSE BEDSIDE (test code = GLUBED) 145 MG/DL 70-110 H Performed by [employer] radiotelegraph operator servicer at [facility] THROMBOPLASTIN TIME [id number] 04:09:00* Test Item Value Reference Range Interpretation Comme nts THROMBOPLASTIN TIME PARTIAL (test code = PTT) 39.9 Seconds 25.0-39.5 H Therapeutic Rang e: 50.4 - 88.3 Seconds Effective 06/10/2018 GLUCOSE [id number] 00:18:00* Test Item Value Reference Range Interpretation Comme nts GLUCOSE BEDSIDE (test code = GLUBED) 204 MG/DL 70-110 H Performed by cer [employer] radiotelegraph operator servicer at [facility] COMPREHENSIVE METABOLIC [id number] 18:29:00* Test Item Value Reference Range Interpretation Comme nts SODIUM (test code = NA) 140 mEq/L 134-147 N POTASSIUM (test code = K) 4.7 mEq/L 3.4-5.0 N CHLORIDE (test code = CL) 109 mEq/L 100-108 H CARBON DIOXIDE (test code = CO2) 24 mEq/l 21-33 N ANION GAP (test code = GAP) 11 0-20 N GLUCOSE (test code = GLU) 121 mg/dL 77-141 N BLOOD UREA NITROGEN (test code = BUN) 17 mg/dL 7-25 N GLOMERULAR FILTRATION RATE (test code = GFR) 62.7 70-80 L The Glomerular Filtration Rate is a calculated parameterbased on serum Creatinine, patient age and sex. GFR valuesless than 60 mL/min/1.73 square meters are indicative ofChronic Kidney Disease. Values less than 15 mL/min/1.73square meters indicate Kidney failure. The calculation forGFR is based on the CKD-EPI (2020) calculation. This formulais race indifferent and is the recommended formula for GFRby the National Kidney Foundation for Adults.The GFR will not calculate if the sex is unknown or if thepatient's age is <18 years. CREATININE (test code = CREAT) 1.2 mg/dL 0.6-1.3 N TOTAL PROTEIN (test code = PROT) 7.5 g/dL 6.4-8.2 N ALBUMIN (test code = ALB) 3.80 g/dL 3.4-5.0 N CALCIUM (test code = CA) 8.7 mg/dL 8.0-10.5 N BILIRUBIN TOTAL (test code = BILT) 0.40 mg/dL 0.0-1.0 N SGOT/AST (test code = AST) 69 IUnit/L 8-34 H SGPT/ALT (test code = ALT) 57 IUnit/L 10-49 H ALKALINE PHOSPHATASE TOTAL (test code = ALKP) 149 IUnit/L 20-125 H LIPID PROFILE (CORONARY RISK)2023-11-11 18:29:00* Test Item Value Reference Range Interpretation Comme nts TRIGLYCERIDES (test code = TRIG) 154 mg/dL 40-150 H CHOLESTEROL (test code = CHOL) 165 mg/dL <200 CHOLESTEROL/HDL RATIO (test code = CHOLHDL) 4.08 RATIO 3.43-4.97 N RISK ASSOCIATED WITH CHOL/HDL RATIOS: RISK MALE FEMALE1/2 AVERAGE 3.43 3.27AVERAGE 4.97 4.442X AVERAGE 9.55 7.053X AVERAGE 23.39 11.04 NOTE THAT THE REFERENCE VALUE IS RELATEDTO RISK LEVELS RECOMMENDED BY THE NATL.HEART, LUNG, AND BLOOD INST. HDL CHOLESTEROL (test code = HDL) 40.4 MG/DL 40-60 N HDL Interpreta tion < 40.0 mg/dL Low (undesirable, high risk)> 60.0 mg/dL High (desirable, low risk) Reference interval for healthy adults was established by theNational Cholesterol Education Program (NCEP). LIPOPROTEIN LDL (test code = LDL) 100.0 mg/dL 0-100 N <100 [id number] 0-129 NEAR OPTIMAL/ABOVE [id number] HIGH>SH=884 VERY HIGH*Guidelines provided by the National Cholesterol EducationProgram Adult Treatment Panel III B-TYPE NATRIURETIC [id number] 18:26:00* Test Item Value Reference Range Interpretation Comme nts B-TYPE NATRIURETIC PEPTIDE ( test code = BNP) 151.0 PG/ML 0-100 H PROTHROMBIN [id number] 18:18:00* Test Item Value Reference Range Interpretation Comme nts PROTHROMBIN TIME PATIENT (test code = PTP) 12.4 SECONDS 9.3-12.9 N INTERNATIONAL NORMAL RATIO (test code = INR) 1.1 0.8-1.2 N TARGET INR BY INDICATION Indication INR1. Prophylaxis of venous thrombosis 2.0 - 3.0 (orthopedic surgery), Prophylaxis of venous thrombosis (other than high-risk surgery), Treatment of Deep Vein Thrombosis/Pulmonary Embolism, Prevention of systemic embolism - Tissue heart valves, Acute Myocardial Infarction (to prevent systemic embolism), Valvular heart disease, Atrial Fibrillation, Bileaflet mechanical valve in aortic position.2. Mechanical prosthetic valves (high risk), 2.5 - 3.5 Presence of Lupus Anticoagulant or Antiphospholipid Antibodies, Prevention of systemic embolism - Acute Myocardial Infarction (to prevent recurrent infarct). COMMENTS: STAT if not done within 24 hours prior to initiation of heparinComment: infusionTHROMBOPLASTIN TIME [id number] 18:18:00* Test Item Value Reference Range Interpretation Comme nts THROMBOPLASTIN TIME PARTIAL (test code = PTT) 39.6 Seconds 25.0-39.5 H Therapeutic Rang e: 50.4 - 88.3 Seconds Effective 06/10/2018 COMMENTS: STAT if not done within 24 hours prior to initiation of heparinComment: [id number] 18:18:00* Test Item Value Reference Range Interpretation Comme nts HGBA1C% (test code = HGBA1C%) 6.4 %A1C 4.8-6.0 H CBC W/AUTO [id number] 18:07:00* Test Item Value Reference Range Interpretation Comme nts WHITE BLOOD CELL (test code = WBC) 10.3 x10 3/uL 4.5-11.0 N RED BLOOD CELL (test code = RBC) 4.86 x10 6/uL 4.00-5.60 N HEMOGLOBIN (test code = HGB) 14.3 g/dL 12.5-16.9 N HEMATOCRIT (test code = HCT) 44.4 % 37.5-50.7 N MEAN CELL VOLUME (test code = MCV) 91.4 fL 81.0-99.0 N MEAN CELL HGB (test code = MCH) 29.4 pg 27.0-33.0 N MEAN CELL HGB CONCETRATION (test code = MCHC) 32.2 g/dL 33.0-37.0 L RED CELL DISTRIBUTION WIDTH CV (test code = RDW) 15.9 % 11.5-14.5 H RED CELL DISTRIBUTION WIDTH SD (test code = RDW-SD) 53.6 fL 37.0-54.0 N PLATELET COUNT (test code = PLT) 218 x10 3/uL 150-400 N MEAN PLATELET VOLUME (test c ode = MPV) 8.9 fL 7.0-9.0 N NEUTROPHIL % (test code = NT%) 66.6 % 56.0-77.0 N IMMATURE GRANULOCYTE % (test code = IG%) 0.3 % 0.0-2.0 N LYMPHOCYTE % (test code = LY%) 19.3 % 14.0-32.0 N MONOCYTE % (test code = MO%) 7.5 % 4.8-9.0 N EOSINOPHIL % (test code = EO%) 5.6 % 0.3-3.7 H BASOPHIL % (test code = BA%) 0.7 % 0.0-2.0 N NUCLEATED RBC % (test code = NRBC%) 0.0 % 0-0 N NEUTROPHIL # (test code = NT#) 6.86 x10 3/uL 2.0-7.6 N IMMATURE GRANULOCYTE # (test code = IG#) 0.03 x10 3/uL 0.00-0.03 N LYMPHOCYTE # (test code = LY#) 1.99 x10 3/uL 1.0-3.8 N MONOCYTE # (test code = MO#) 0.77 x10 3/uL 0.1-0.8 N EOSINOPHIL # (test code = EO#) 0.58 x10 3/uL 0.0-0.2 H BASOPHIL # (test code = BA#) 0.07 x10 3/uL 0.0-0.2 N NUCLEATED RBC # (test code = NRBC#) 0.00 x10 3/uL 0.0-0.1 N COMMENTS: STAT if not done within 24 hours prior to initiation of heparin Comment: infusionHEMOGLOBIN [id number] 00:00:00* Test Item Value Reference Range Interpretation Comme nts A1C (test code = 4548-4) 7.9 HEMOGLOBIN [id number] 00:00:00* Test Item Value Reference Range Interpretation Comme nts A1C (test code = 4548-4) 6.6
--- NOTE | 2024-02-02 13:50 | RAD REPORT ---
EXAM: Chest Single View HISTORY: DYSPNEA COMPARISON: 11/10/2023 FINDINGS: LUNGS/PLEURA: Blunting left costophrenic angle with hazy left basilar airspace disease. MEDIASTINUM: The mediastinal silhouette is within normal limits. CARDIAC: The cardiac silhouette is within normal limits. UPPER ABDOMEN: No significant abnormality. BONES: No acute fracture. LINES/TUBES/OTHER: N/A IMPRESSION: Hazy opacities both lung base which could reflect atelectasis and/or consolidation. Suspect small lef t pleural effusion.
[2024-02-02 13:51] LABS: Absolute Basophils 0.1 K/uL (0-0.5); Absolute Eosinophils 0.4 K/uL (0-0.5); Absolute Lymphocytes (CBC) 1.8 K/uL (0.7-4.9); Absolute Monocytes 0.5 K/uL (0.1-1.3); Absolute Neutrophil 6.6 K/uL (1.8-8.0); Eosinophils % 3.7 % (0-4.4); Hematocrit 39.8 % (39.6-49.0); Hemoglobin 12.6 g/dL (13.6-17.9); Lymphocytes % 18.8 % (15.3-44.8); MCH 29.1 pg (27.0-35.0); MCHC 31.8 g/dL (32.0-36.0); MCV 91.5 fL (80-100); MPV 6.9 fL (7.6-11.3); Monocytes % 5.7 % (3.3-12.3); Neutrophils % 70.8 % (41.7-73.7); Platelets 232 thou/uL (152-406); RBC Red Blood Cell Count 4.35 M/uL (4.33-5.43); Red Cell Distribution Width 16.8 % (12.1-15.2)
[2024-02-02 13:56] LABS: PT Prothrombin Time 12.6 SECONDS (9.4-12.5); Protime INR 1.13
[2024-02-02 14:10] LABS: Albumin 3.2 g/dL (3.4-5.0); Albumin/Globulin Ratio 0.7 (1.1-1.8); Anion Gap 9.5 mEq/L (5.0-15.0); Bilirubin Direct 0.2 mg/dL (0-0.2); Bilirubin Indirect, Calculated 0.3 mg/dL (0.2-0.8); Bilirubin Total 0.5 mg/dL (0.2-1.0); Globulin 4.3 g/dL (2.3-3.5); Magnesium 1.9 mg/dL (1.6-2.4); Potassium 4.5 mEq/L (3.5-5.1); Protein, Total 7.5 g/dL (6.4-8.2)
[2024-02-02 14:11] LABS: Troponin High Sensitivity 74.1 pg/mL (<58.9)
[2024-02-02] MEDS ORDERED: NITROGLYCERIN 0.4 MG/TAB SL ONE (14:20)
[2024-02-02] MEDS ORDERED: FUROSEMIDE 40 MG/4 ML VIAL ONE (14:21)
--- NOTE | 2024-02-02 14:32 | EDPHYS ---
Physician Documentation [facility] Name: Richard Artis Age: 78 yrs Sex: Male : 1945 Arrival Date: 02/02/2024 Time: 13:03 Bed 3 Private MD: ED Physician Liam Estrada HPI: 02/01 13:26 This 78 yrs old Male presents to ER via Wheelchair with complaints of Breathing sp3 Difficulty. 13:26 78-year-old male with a history of chronic pain, diabetes, depression, BPH presents to [facility] the ED with chief complaint shortness of breath and high blood pressure. Symptoms been going on over the last 2 to 3 days. He says it is worse when he lays down. Patient denies cough, chest pain, fever, headache abdominal pain, nausea, vomit, diarrhea, syncope, focal neurological deficit, travel history, known sick contacts, or any other signs or symptoms on ROS at this time.. Historical: - Allergies: 13:22 PENICILLINS; aa5 13:22 Sulfa (Sulfonamide Antibiotics); aa5 - PMHx: 13:22 BPH; Chronic pain; constipation; Depression; Diabetes - IDDM; GERD; Hidradenitis aa5 Suppurativa; Hypertension; neuropathy; PTSD; - PSHx: 13:22 CABG (Unknown); aa5 - Immunization history:: Adult Immunizations unknown. - Infectious Disease History:: Denies. - Social history:: Smoking status: Patient/guardian denies using tobacco, Stopped _ months ago 3. ROS: 13:27 Constitutional: Negative for fever, chills, and weight loss, Eyes: Negative for injury, sp3 pain, redness, and discharge, Neck: Negative for injury, pain, and swelling, Cardiovascular: Negative for chest pain, palpitations, and edema, Abdomen/GI: Negative for abdominal pain, nausea, vomiting, diarrhea, and constipation, Back: Negative for injury and pain, MS/Extremity: Negative for injury and deformity, Skin: Negative for injury, rash, and discoloration, Neuro: Negative for headache, weakness, numbness, tingling, and seizure, Psych: Negative for depression, anxiety, suicide ideation, homicidal ideation, and hallucinations, Allergy/Immunology: Negative for hives, rash, and allergies, Endocrine: Negative for neck swelling, polydipsia, polyuria, polyphagia, and marked weight changes, Hematologic/Lymphatic: Negative for swollen nodes, abnormal bleeding, and unusual bruising, 13:27 All other systems are negative, Exam: 13:27 Constitutional: This is a well developed, well nourished patient who is awake, alert, sp3 and in no acute distress. Head/Face: Normocephalic, atraumatic. Eyes: Pupils equal round and reactive to light, extra-ocular motions intact. Lids and lashes normal. Conjunctiva and sclera are non-icteric and not injected. Cornea within normal limits. Periorbital areas with no swelling, redness, or edema. Neck: Trachea midline, no thyromegaly or masses palpated, and no cervical lymphadenopathy. Supple, full range of motion without nuchal rigidity, or vertebral point tenderness. No Meningismus. Chest/axilla: Normal chest wall appearance and motion. Nontender with no deformity. No lesions are appreciated. Cardiovascular: Regular rate and rhythm with a normal S1 and S2. No gallops, murmurs, or rubs. Normal PMI, no JVD. No pulse deficits. Abdomen/GI: Soft, non-tender, with normal bowel sounds. No distension or tympany. No guarding or rebound. No evidence of tenderness throughout. Back: No spinal tenderness. No costovertebral tenderness. Full range of motion. Skin: Warm, dry with normal turgor. Normal color with no rashes, no lesions, and no evidence of cellulitis. MS/ Extremity: Pulses equal, no cyanosis. Neurovascular intact. Full, normal range of motion. Neuro: Awake and alert, GCS 15, oriented to person, place, time, and situation. Cranial nerves II-XII grossly intact. Motor strength 5/5 in all extremities. Sensory grossly intact. Cerebellar exam normal. Normal gait. Psych: Awake, alert, with orientation to person, place and time. Behavior, mood, and affect are within normal limits. 13:27 Respiratory: Mild pulmonary edema noted on clinical exam, 14:30 ECG was reviewed by the Attending Physician. EKG demonstrates normal sinus rhythm at 72 sp3 bpm with normal intervals except QTc of 514, right bundle branch block and nonspecific diffuse ST's ST changes without evidence of acute ischemia. Vital Signs: 13:11 BP 211 / 90; Pulse 79; Resp 18 S; Temp 97.8(O); Pulse Ox 96% on R/A; Weight 113.4 kg aa5 (R); Height 6 ft. 0 in. (R); 14:34 BP 158 / 92; Pulse 105; Resp 18; Pulse Ox 95% on R/A; ph 15:44 BP 167 / 81; Pulse 101; Resp 18; Temp 97.5; Pulse Ox 96% on R/A; ph 13:11 Body Mass Index 33.91 (113.40 kg, 182.88 cm) aa5 MDM: 13:19 Medical Screening Exam initiated sp3 13:27 Data reviewed: vital signs, nurses notes, lab test result(s), EKG, radiologic studies. sp3 ED course: 78-year-old male with PMH above now with shortness of breath and hypertension. Differential diagnosis includes CHF, acute coronary syndrome, pneumonia, bronchitis, URI, viral illness, among others. Workup will include chest x-ray, EKG, general labs and supportive care. Nitroglycerin 0.4 mg p.o. for symptomatic control. Further intervention as indicated.. 14:14 ED course: Patient with CHF exacerbation and mild elevation in troponin. Nitro and sp3 Lasix ordered. Patient will be placed inpatient status with further workup per inpatient team.. 02/01 13:19 Order name: Basic Metabolic Panel; Complete Time: 14:13 sp3 02/01 13:19 Order name: CBC with Diff; Complete Time: 14:13 sp3 02/01 13:19 Order name: LFT's; Complete Time: 14:13 sp3 02/01 13:19 Order name: Magnesium; Complete Time: 14:13 sp3 02/01 13:19 Order name: NT PRO-BNP; Complete Time: 14:13 sp3 02/01 13:19 Order name: PT-INR; Complete Time: 14:13 sp3 02/01 13:19 Order name: Troponin HS; Complete Time: 14:13 sp3 02/01 15:15 Order name: Troponin High Sensitivity EDMS 02/01 15:15 Order name: Troponin High Sensitivity EDMS 02/01 15:15 Order name: Troponin High Sensitivity EDMS 02/01 13:19 Order name: XRAY Chest (1 view); Complete Time: 13:51 sp3 02/01 15:14 Order name: Echo with Doppler EDMS 02/01 15:14 Order name: Echo with Doppler EDMS 02/01 13:19 Order name: Cardiac monitoring; Complete Time: 13:43 sp3 02/01 13:19 Order name: EKG - Nurse/Tech; Complete Time: 14:34 sp3 02/01 13:19 Order name: IV Saline Lock; Complete Time: 13:43 sp3 02/01 13:19 Order name: Labs collected and sent; Complete Time: 13:43 sp3 02/01 13:19 Order name: O2 Per Protocol; Complete Time: 13:44 sp3 02/01 13:19 Order name: O2 Sat Monitoring; Complete Time: 13:44 sp3 Administered Medications: 14:34 Drug: Nitroglycerin Sublingual 0.4 mg Sublingual once Route: Sublingual; ph 15:47 Follow up: Response: No adverse reaction ph 14:34 Drug: Furosemide IVP 40 mg IVP once; give over 2 minutes Route: IVP; Site: left forearm;ph 15:47 Follow up: Response: No adverse reaction ph 15:41 Drug: Nitroglycerin Sublingual 0.4 mg Sublingual once Route: Sublingual; ph 15:47 Follow up: Response: No adverse reaction ph Disposition Summary: 02/02/24 14:31 Hospitalization Ordered Notes: Hospitalization Status: Inpatient Admission sp3 Provider: Enrrique Cox sp3 Location: Telemetry/MedSurg (Inpatient) sp3 Condition: Stable sp3 Problem: an acute exacerbation sp3 Symptoms: have worsened sp3 Bed/Room Type: Standard sp3 Room Assignment: 407(02/02/24 15:43) eb Diagnosis - CHF exacerbation, NSTEMI sp3 Forms: - Medication Reconciliation Form sp3 - SBAR form sp3 - Leadership Thank You Letter sp3 Signatures: Dispatcher [employer] EDMS Anne Carnes RN RN [email or web address] Kim Glaser RN RN ph Delmy Bowman Setul, MD MD sp3 Corrections: (The following items were deleted from the chart) 13:20 13:20 BASIC METABOLIC PANEL+C.LAB.BRZ ordered. EDMS EDMS 13:20 13:20 CBC+H.LAB.BRZ ordered. EDMS EDMS 13:20 13:20 HEPATIC FUNCTION+C.LAB.BRZ ordered. EDMS EDMS 13:20 13:20 MAGNESIUM+C.LAB.BRZ ordered. EDMS EDMS 13:20 13:20 PROBNP+C.LAB.BRZ ordered. EDMS EDMS 13:20 13:20 PROTIME (+INR)+COAG.LAB.BRZ ordered. EDMS EDMS 13:20 13:20 Troponin High Sensitivity+C.LAB.BRZ ordered. EDMS EDMS 13:20 13:20 Chest Single View+RAD.RAD.BRZ ordered. EDMS EDMS 13:23 13:22 PSHx: CABG (PTSD); aa5 aa5 15:43 14:31 sp3 eb
--- NOTE | 2024-02-02 14:32 | ER ---
Nurse's Notes [facility] Name: Richard Artis Age: 78 yrs Sex: Male : 1945 Arrival Date: 02/02/2024 Time: 13:03 Bed 3 Private MD: Diagnosis: CHF exacerbation, NSTEMI Presentation: 02/01 13:11 Chief complaint: Chief complaint: Patient states: "My blood pressure was high and I've aa5 been having trouble breathing since last night". Pt reports slight cough and body aches. 13:11 Coronavirus screen: cough unrelated to allergies, shortness of breath. Ebola Screen: aa5 Patient denies travel to an Ebola-affected area in the 21 days before illness onset. Initial Sepsis Screen: Does the patient meet any 2 criteria? No. Patient's initial sepsis screen is negative. Does the patient have a suspected source of infection? No. Patient's initial sepsis screen is negative. Risk Assessment: Do you want to hurt yourself or someone else? Patient reports no desire to harm self or others. Onset of symptoms was January 2024. 13:11 Method Of Arrival: Wheelchair aa5 13:11 Acuity: JOANN 2 aa5 Triage Assessment: 14:36 Respiratory: the patient has mild shortness of breath. ph Historical: - Allergies: 13:22 PENICILLINS; aa5 13:22 Sulfa (Sulfonamide Antibiotics); aa5 - PMHx: 13:22 BPH; Chronic pain; constipation; Depression; Diabetes - IDDM; GERD; Hidradenitis aa5 Suppurativa; Hypertension; neuropathy; PTSD; - PSHx: 13:22 CABG (Unknown); aa5 - Immunization history:: Adult Immunizations unknown. - Infectious Disease History:: Denies. - Social history:: Smoking status: Patient/guardian denies using tobacco, Stopped _ months ago 3. Screenin:35 [facility] ED Fall Risk Assessment (Adult) History of falling in the last 3 months, ph including since admission No falls in past 3 months (0 pts) Confusion or Disorientation No (0 pts) Intoxicated or Sedated No (0 pts) Impaired Gait No (0 pts) Mobility Assist Device Used No (0 pt) Altered Elimination No (0 pt) Score/Fall Risk Level 0 - 2 = Low Risk Oriented to surroundings, Maintained a safe environment, Hourly rounding (assess needs \\T\\ fall precautionary measures) done. Abuse screen: Denies threats or abuse. Has been threatened or abused. Nutritional screening: No deficits noted. Tuberculosis screening: No symptoms or risk factors identified. Assessment: 14:30 General: Appears in no apparent distress. comfortable, well groomed, Behavior is calm, ph cooperative, appropriate for age. Pain: Denies pain. Neuro: Level of Consciousness is awake, alert, obeys commands, Oriented to person, place, time, situation. Cardiovascular: Reports shortness of breath. Respiratory: Reports shortness of breath at rest cough that is Airway is patent Respiratory effort is even, unlabored, Respiratory pattern is regular, symmetrical. GI: Abdomen is round non-distended. EENT: No signs and/or symptoms were reported regarding the EENT system. Derm: Skin is pink, warm \\T\\ dry. Musculoskeletal: Circulation, motion, and sensation intact. Range of motion: intact in all extremities. 14:36 Cardiovascular: Rhythm is sinus rhythm. ph Vital Signs: 13:11 BP 211 / 90; Pulse 79; Resp 18 S; Temp 97.8(O); Pulse Ox 96% on R/A; Weight 113.4 kg aa5 (R); Height 6 ft. 0 in. (R); 14:34 BP 158 / 92; Pulse 105; Resp 18; Pulse Ox 95% on R/A; ph 15:44 BP 167 / 81; Pulse 101; Resp 18; Temp 97.5; Pulse Ox 96% on R/A; ph 13:11 Body Mass Index 33.91 (113.40 kg, 182.88 cm) aa5 Vitals: 14:34 Cardiac Rhythm Assessment Sinus rhythm. ph ED Course: 13:06 Patient arrived in ED. ra3 13:11 Arm band placed on Patient placed in an exam room, on a stretcher. aa5 13:14 Liam Estrada MD is Attending Physician. sp3 13:24 Triage completed. aa5 13:33 XRAY Chest (1 view) In Process Unspecified. EDMS 13:33 Kim Glaser, RN is Primary Nurse. ph 13:40 Initial lab(s) drawn, by me, sent to lab. Inserted saline lock: 20 gauge in left ph forearm, using aseptic technique. Blood collected. Flushed with 10 mL NS. 14:30 EKG done, by ED staff, reviewed by Liam Estrada MD. ph 14:31 Enrrique Cox MD is Hospitalizing Provider. sp3 14:36 Patient has correct armband on for positive identification. Placed in gown. Bed in low ph position. Call light in reach. Side rails up X 1. Client placed on continuous cardiac and pulse oximetry monitoring. NIBP monitoring applied. laboratory monitor on. 15:47 No provider procedures requiring assistance completed. Patient admitted, IV remains in ph place. Administered Medications: 14:34 Drug: Nitroglycerin Sublingual 0.4 mg Sublingual once Route: Sublingual; ph 15:47 Follow up: Response: No adverse reaction ph 14:34 Drug: Furosemide IVP 40 mg IVP once; give over 2 minutes Route: IVP; Site: left forearm;ph 15:47 Follow up: Response: No adverse reaction ph 15:41 Drug: Nitroglycerin Sublingual 0.4 mg Sublingual once Route: Sublingual; ph 15:47 Follow up: Response: No adverse reaction ph Medication: 14:36 VIS not applicable for this client. ph Output: 15:44 Urine: 1250ml (Voided); Total: 1250ml. ph Outcome: 14:31 Decision to Hospitalize by Provider. sp3 16:38 Patient left the ED. ph Signatures: Dispatcher [employer] EDMS Anne Carnes, RN RN aa5 Kim Glaser RN RN ph Liam Estrada MD MD sp3 Felipa Willard ra3 Corrections: (The following items were deleted from the chart) 13:23 13:22 PSHx: CABG (PTSD); ronny jefferson
--- NOTE | 2024-02-02 15:21 | P.HP ---
Certification for Inpatient Patient admitted to: Inpatient With expected LOS: >2 Midnights Patient will require the following post-hospital care: None Practitioner: I am a practitioner with admitting privileges, knowledge of patient current condition, hospital course, and medical plan of care. Services: Services provided to patient in accordance with Admission requirements found in Title 42 Section 412.3 of the Code of Federal Regulations Patient History Date of Service: 02/02/24 Reason for admission: NSTEMI, suspected CHF History of Present Illness: 78-year-old male with history of CADquadruple bypass in October of this year, zcc-yytelvu-fzufbefsw diabetes, hypertension, PTSD presents to the emergency department for chief complaint of shortness of breath, orthopnea, hypertension. He had his CABG at [facility] in October and has been doing well since then, last night noticed when he is lying down he was significantly short of breath, relieved with sitting up. He checked his blood pressure and found to be in the 200s systolic and ultimately came to the hospital for evaluation. Patient was evaluated in the emergency department his labs are significant for an initial high sensitive troponin of 74.1, BNP of 3189 glucose of 124 chest x- ray concerning for hazy opacities in both lung bases, suspected small left pleural effusion. 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 moist/pink Neck: Supple, 2+ carotid pulse no bruit, No LAD Respiratory: Diminished, Crackles/rales Cardiovascular: Regular rate/rhythm, Normal S1 S2 Gastrointestinal: Normal bowel sounds, No tenderness Musculoskeletal: No tenderness Integumentary: No rashes Neurological: Normal speech, Normal strength at 5/5 x4 extr, Normal tone, Normal affect - Studies Laboratory Data (last 24 hrs) 02/02/24 02/02/24 02/02/24 13:40 13:40 13:40 WBC 9.40 Hgb 12.6 L Hct 39.8 Plt Count 232 PT 12.6 H INR 1.13 Sodium 141 Potassium 4.5 BUN 16 Creatinine 1.00 Glucose 124 H Magnesium 1.9 Total Bilirubin 0.5 AST 18 ALT 21 Alkaline Phosphatase 145 H Assessment and Plan - Plan Assessment: NSTEMI-suspect demand ischemia Suspect new onset CHF-orthopnea/dyspnea, elevated BNP CAD with four-vessel CABG 10/2023 Diabetes type 2 Hypertension PTSD Plan: NSTEMI-suspect demand ischemia Suspect new onset CHF-orthopnea/dyspnea, elevated BNP CAD with four-vessel CABG 10/2023 States he has done well since his CABG in October Short of breath since last night, especially orthopneic BNP elevated, chest x-ray with hazy opacities bilateral lower lobes-suspect pulmonary edema Given Lasix in ED Monitor on telemetry, obtain cardiology consultation, echocardiogram Also will trend troponins Diabetes type 2 ACHS Accu-Chek, sliding scale insulin Hypertension PTSD Continue home medications when verified DVT PPX: Lovenox Code status: Full Discharge Plan: Home Plan to discharge in: 48 Hours - Advance Directives Does patient have a Living Will: No Does patient have a Durable POA for Healthcare: No - Code Status/Comfort Care Code Status Assessed: Yes (Full code) Critical Care: No Time Spent Managing Pts Care (In Minutes): 65
[2024-02-02] MEDS: INSULIN REGULAR (HUMAN) 100 UNIT/ML SQ SCH (16:43)
[2024-02-02] MEDS ORDERED: ONDANSETRON 4 MG/2 ML VIAL IV PRN (16:43)
[2024-02-02 16:55] VITALS: BMI 33.9
[2024-02-02] MEDS: FUROSEMIDE 40 MG/4 ML VIAL IV SCH (17:58)
[2024-02-02] MEDS: HYDROCODONE/APAP 7.5/325 MG TAB ONE (23:44)
[2024-02-02] MEDS: GABAPENTIN 300 MG CAP ONE (23:44)
[2024-02-02] MEDS: HYDROCODONE/APAP 7.5/325 MG TAB PO SCH (23:49)
[2024-02-02] MEDS: GABAPENTIN 300 MG CAP PO SCH (23:49)
[2024-02-03 06:41] LABS: Absolute Eosinophils 0.3 K/uL (0-0.5); Absolute Lymphocytes (CBC) 1.7 K/uL (0.7-4.9); Absolute Monocytes 0.8 K/uL (0.1-1.3); Absolute Neutrophil 5.5 K/uL (1.8-8.0); Basophils % 0.5 % (0-1.3); Eosinophils % 3.6 % (0-4.4); Hematocrit 38.6 % (39.6-49.0); Hemoglobin 12.5 g/dL (13.6-17.9); Lymphocytes % 20.7 % (15.3-44.8); MCH 29.4 pg (27.0-35.0); MCHC 32.5 g/dL (32.0-36.0); MCV 90.6 fL (80-100); MPV 6.6 fL (7.6-11.3); Monocytes % 9.2 % (3.3-12.3); Platelets 238 thou/uL (152-406); RBC Red Blood Cell Count 4.26 M/uL (4.33-5.43); Red Cell Distribution Width 16.8 % (12.1-15.2)
[2024-02-03 07:17] LABS: Anion Gap 5.3 mEq/L (5.0-15.0); Potassium 3.3 mEq/L (3.5-5.1); Thyroid Stimulating Hormone 1.57 uIU/mL (0.358-3.740)
[2024-02-03 07:19] LABS: Troponin High Sensitivity 77.9 pg/mL (<58.9)
[2024-02-03] MEDS: ENOXAPARIN 40 MG/0.4 ML SQ SCH (08:07)
[2024-02-03] MEDS: lisinopriL 20 MG TAB PO SCH (08:09)
--- NOTE | 2024-02-03 10:39 | P.PN ---
Date of Service: 02/03/24 Subjective: Dyspnea has improved some overnight No other acute events overnight ROS: 10 point ROS as noted above, otherwise negative Physical exam GEN: Alert, oriented, NAD HEENT: Normal conjunctiva, sclera anicteric CV: Regular rate and rhythm, no edema Pulm: Nonlabored respirations on room air ABD: Soft, nontender, nondistended MSK: No joint tenderness Integumentary: No rashes Neuro: Normal speech, normal affect Vitals reviewed Assessment: NSTEMI-suspect demand ischemia Suspect new onset CHF-orthopnea/dyspnea, elevated BNP CAD with four-vessel CABG 10/2023 Diabetes type 2 Hypertension PTSD Plan: NSTEMI-suspect demand ischemia Suspect new onset CHF-orthopnea/dyspnea, elevated BNP CAD with four-vessel CABG 10/2023 States he has done well since his CABG in October Short of breath since last night, especially orthopneic-improving with diuresis BNP elevated, chest x-ray with hazy opacities bilateral lower lobes-suspect pulmonary edema Continue IV Lasix Monitor on telemetry, obtain cardiology consultation, echocardiogram Troponins trended flat Diabetes type 2 ACHS Accu-Chek, sliding scale insulin Hypertension PTSD Continue home medications when verified DVT PPX: Lovenox Code status: Full Discharge Plan: Home Plan to discharge in: 48 Hours Time Spent Managing Pts Care (In Minutes): 35
[2024-02-04 05:31] VITALS: O2SAT 92
[2024-02-04 07:12] LABS: Absolute Eosinophils 0.3 K/uL (0-0.5); Absolute Lymphocytes (CBC) 1.9 K/uL (0.7-4.9); Absolute Monocytes 0.6 K/uL (0.1-1.3); Basophils % 0.5 % (0-1.3); Eosinophils % 2.8 % (0-4.4); Hematocrit 40.7 % (39.6-49.0); Hemoglobin 13.3 g/dL (13.6-17.9); Lymphocytes % 21.2 % (15.3-44.8); MCH 29.5 pg (27.0-35.0); MCHC 32.7 g/dL (32.0-36.0); MCV 90.2 fL (80-100); MPV 6.8 fL (7.6-11.3); Monocytes % 7.3 % (3.3-12.3); Neutrophils % 68.2 % (41.7-73.7); Nucleated Red Blood Cells % 0.1 % (0-0); Platelets 265 thou/uL (152-406); RBC Red Blood Cell Count 4.51 M/uL (4.33-5.43); Red Cell Distribution Width 16.7 % (12.1-15.2)
--- NOTE | 2024-02-04 09:08 | ECHO ---
HEIGHT: 6 ft 0 in WEIGHT: 250 lb 0 oz DATE OF STUDY: 02/03/[address]: Jayy Shaw NP 2-DIMENSIONAL: YES M.MODE: YES DOPPLER: YES COLOR FLOW: YES TDS: YES PORTABLE: YES DEFINITY: NO BUBBLE STUDY: NO DIAGNOSIS: NEW CONGESTIVE HEART FAILURE CARDIAC HISTORY: CATHERIZATION: SURGERY: PROSTHETIC VALVE: PACEMAKER: MEASUREMENTS (cm) DIASTOLIC (NORMALS) SYSTOLIC (NORMALS) IVSd 1.3 (0.6-1.2) LA Diam 3.2 (1.9-4.0) LVEF 50-55% LVIDd 4.3 (3.5-5.7) LVIDs 3.3 (2.0-3.5) %FS 24% LVPWd 1.2 (0.6-1.2) Ao Diam 3.2 (2.0-3.7) 2 DIMENSIONAL ASSESSMENT: RIGHT ATRIUM: NORMAL LEFT ATRIUM: NORMAL RIGHT VENTRICLE: NORMAL LEFT VENTRICLE: NORMAL TRICUSPID VALVE: MILD TRICUSPID REGURGITATION MITRAL VALVE: NORMAL PULMONIC VALVE: NORMAL AORTIC VALVE: NORMAL PERICARDIAL EFFUSION: NONE AORTIC ROOT: NORMAL LEFT VENTRICULAR WALL MOTION: NORMAL. DOPPLER/COLOR FLOW: GRADE I DIASTOLIC DYSFUNCTION. COMMENTS: 1. NORMAL LEFT VENTRICULAR SYSTOLIC FUNCTION. LEFT VENTRICULAR EJECTION FRACTION 50-55%. NORMAL WALL MOTION. 2. GRADE I DIASTOLIC DYSFUNCTION. 3. MILDLY ELEVATED FILLING PRESSURES. TECHNOLOGIST: VERONICA RAWLS
--- NOTE | 2024-02-04 11:58 | P.CNS ---
Date of Consult: 02/04/24 Chief Complaint: NSTEMI, suspected CHF History of Present Illness: Patient with PMH of CAD s/p CABG back in 10/2023 presented with worsening SOB, lower extremities swelling, denies chest pain, no palpitations, no syncope. Allergies Penicillins Allergy (Verified 02/02/24 16:43) Hives/Rash Sulfa (Sulfonamide Antibiotics) Adverse Reaction (Verified 02/02/24 16:42) Itching Home medications list reviewed: Yes Home Medications: Gabapentin 900 mg PO TID 11/10/23 Lisinopril [Zestril] 40 mg PO BID 11/10/23 Omeprazole 20 mg PO DAILY 11/10/23 Chlorthalidone [Hygroton 25mg Tab*] 25 mg PO DAILY 02/02/24 Diclofenac Na [Voltaren D.R] 75 mg PO BID 02/02/24 Empagliflozin [Jardiance] 25 mg PO DAILY 02/02/24 Hydrocodone Bit/Acetaminophen [Vicodin Es 7.5-750 mg Tablet] 1 tab PO TID 02/02/24 Insulin Regular, Human [Novolin R] 66 unit IJ BIDWM 02/02/24 Serialize 25 mg PO DAILY AT SUPPER 02/02/24 Spironolactone [Aldactone] 12.5 mg PO DAILY 02/02/24 - Past Medical/Surgical History Diabetic: Yes -: CAD-quadruple bypass October 2023 -: Diabetes mellitus type 2- 13 years -: Hypertension -: Hidradenitis suppurativa -: PTSD -: Four-vessel CABG 2023 -: diane -: spinal surg from [facility] in service Psychosocial/ Personal History: Lives at home with his family - Social History Smoking Status: Current every day smoker Alcohol use: No CD- Drugs: No Caffeine use: Yes Place of Residence: Home Review of Systems 10-point ROS is otherwise unremarkable Physical Examination Temp Pulse Resp BP Pulse Ox 97.9 F 72 14 137/67 92 02/04/24 08:00 02/04/24 08:25 02/04/24 08:26 02/04/24 08:25 02/04/24 08:26 General: Alert, In no apparent distress HEENT: Atraumatic, PERRLA, Mucous membr. moist/pink, EOMI, Sclerae nonicteric Neck: Supple, 2+ carotid pulse no bruit, No LAD, Without JVD or thyroid abnormality Respiratory: Clear to auscultation bilaterally, Normal air movement Cardiovascular: Regular rate/rhythm, Normal S1 S2 Gastrointestinal: Normal bowel sounds, No tenderness Musculoskeletal: No tenderness Integumentary: No rashes Neurological: Normal gait, Normal speech, Normal tone, Normal affect Lymphatics: No axilla or inguinal lymphadenopathy - Problems (1) Acute on chronic diastolic heart failure Current Visit: Yes Status: Acute Plan: patient diursed well during hospital stay. lower lasix to 40 mg daily continue lisinopril 40 mg daily resume aldactone 25 mg daily continue jardiance. (2) NSTEMI (non-ST elevated myocardial infarction) Current Visit: No Status: Acute Plan: flat troponin mild elevation, most likely secondary to CHF, Echo shows normal EF, no further cardiac work up needed.
[2024-02-04 12:28] VITALS: BP 156/92; TEMP 98.4
--- NOTE | 2024-02-04 12:34 | P.DS ---
Admission Date: 02/02/24 Discharge Date: 02/04/24 Disposition: ROUTINE DISCHARGE Discharge Condition: GOOD Reason for Admission: NSTEMI, suspected CHF Brief History of Present Illness: Diagnosis NSTEMI-suspect demand ischemia Suspect new onset CHF-orthopnea/dyspnea, elevated BNP CAD with four-vessel CABG 10/2023 Diabetes type 2 Hypertension PTSD HPI 02/02/2024 Richard Loyola is an 78-year-old male with history of CADquadruple bypass in October of this year, xlq-ldixvzs-vhjaspjzb diabetes, hypertension, PTSD presents to the emergency department for chief complaint of shortness of breath, orthopnea, hypertension. He had his CABG at [facility] in October and has been doing well since then, last night noticed when he is lying down he was significantly short of breath, relieved with sitting up. He checked his blood pressure and found to be in the 200s systolic and ultimately came to the hospital for evaluation. Patient was evaluated in the emergency department his labs are significant for an initial high sensitive troponin of 74.1, BNP of 3189 glucose of 124 chest x- ray concerning for hazy opacities in both lung bases, suspected small left pleural effusion. ED progress to admit patient for further management of suspected onset CHF, elevated troponin/NSTEMI Hospital Course: Richard loyola is a pleasant 78 with a past medical history significant for CADq uadruple bypass in October of this year, wea-kocvmev-zwhskijik diabetes, hypertension, PTSD who was admitted to the [facility] on 02/02/2024 for NSTEMI. Richard presented to the ED with shortness of breath while lying down. Chest xray "revealed small left pleural effusion". With his cardiac history of a CABG in october 2022 and NSTEMI, Cardiology was consulted. ECHO showing mild tricuspid regurgitation, EF 50-55%. Dr. Gutierrez has cleared him for discharge d/t mildly elevated troponin likely secondary to CHF. Vital signs remained stable, tolerating PO diet, and ambulating independently. He reports feeling better after IV lasix and UOP of 6150 ml for total admission. Plan to follow up with Dr. Gutierrez and continue lasix at home. On 02/04/2024, Richard was seen on morning rounds and deemed medically stable for discharge. Richard was discharged with instructions to schedule follow-up appointments with PCP and Dr. Gutierrez. Richard was provided prescription for Lasix. Physical exam GEN: Alert and oriented x3, NAD HEENT: Normal conjunctiva, sclera anicteric CV: Regular rate and rhythm, no edema Pulm: Nonlabored respirations, on room air ABD: Soft on palpation, NT/NT, normal active bowel sounds MSK: No joint tenderness Integumentary: No rashes Neuro: Normal speech, normal affect Vital Signs/Physical Exam: Temp Pulse Resp BP Pulse Ox 98.4 F 85 16 156/92 H 98 02/04/24 12:00 02/04/24 12:00 02/04/24 12:00 02/04/24 12:00 02/04/24 12:00 Laboratory Data at Discharge: WBC 8.80 thou/uL (4.3-10.9) 02/04/24 06:09 Hgb 13.3 g/dL (13.6-17.9) L 02/04/24 06:09 Hct 40.7 % (39.6-49.0) 02/04/24 06:09 Plt Count 265 thou/uL (152-406) 02/04/24 06:09 PT 12.6 SECONDS (9.4-12.5) H 02/02/24 13:40 INR 1.13 02/02/24 13:40 Sodium 136 mEq/L (136-145) 02/04/24 06:09 Potassium 4.0 mEq/L (3.5-5.1) D 02/04/24 06:09 BUN 29 mg/dL (7-18) H 02/04/24 06:09 Creatinine 1.19 mg/dL (0.70-1.30) 02/04/24 06:09 Glucose 195 mg/dL (74-106) H 02/04/24 06:09 Magnesium 1.9 mg/dL (1.6-2.4) 02/02/24 13:40 Total Bilirubin 0.5 mg/dL (0.2-1.0) 02/02/24 13:40 AST 18 U/L (15-37) 02/02/24 13:40 ALT 21 U/L (16-61) 02/02/24 13:40 Alkaline Phosphatase 145 U/L (45-117) H 02/02/24 13:40 Home Medications: Gabapentin 900 mg PO TID 11/10/23 Lisinopril [Zestril] 40 mg PO BID 11/10/23 Omeprazole 20 mg PO DAILY 11/10/23 Chlorthalidone [Hygroton 25mg Tab*] 25 mg PO DAILY 02/02/24 Diclofenac Na [Voltaren D.r*] 75 mg PO BID 02/02/24 Empagliflozin [Jardiance] 25 mg PO DAILY 02/02/24 Hydrocodone Bit/Acetaminophen [Vicodin Es 7.5-750 mg Tablet] 1 tab PO TID 02/02/24 Insulin Regular, Human [Novolin R] 66 unit IJ BIDWM 02/02/24 Serialize 25 mg PO DAILY AT SUPPER 02/02/24 Spironolactone [Aldactone*] 12.5 mg PO DAILY 02/02/24 Furosemide [Lasix] 40 mg PO DAILY 30 Days #30 tab 02/04/24 New Medications: Furosemide [Lasix] 40 mg PO DAILY 30 Days #30 tab Physician Discharge Instructions: 1. Follow up with PCP in 3-5 days -refills will be handled by your PCP 2. Follow up with your shear assembler in one week -starting Lasix, Cardiology will manage the lasix dosage 3. Continue heart healthy diet 4. no activity restrictions 5. Return to the ED if symptoms worsen New medication Lasix 40 mg daily- follow up with Dr. Gutierrez for continued management as your potassium level needs to be monitored. Diet: AHA Activity: Ad zenon Followup: Thomas Gutierrez MD [ACTIVE - CAN ADMIT] - 1-2 Weeks [facility] [Primary Care Provider] - 1-2 Weeks
--- NOTE | 2024-02-07 16:07 | EKG ---
Test Date: 2024-02-02 Test Time: 14:26:01 Pizza Delivery Driver: PH MEASUREMENT RESULTS: Intervals: Rate: 72 AK: 172 QRSD: 142 QT: 470 QTc: 514 [place]: P: 65 AK: 172 QRS: -74 T: 7 INTERPRETIVE STATEMENTS: Normal sinus rhythm Left axis deviation Right bundle branch block Anterolateral infarct, age undetermined Abnormal ECG Compared to ECG 11/10/2023 03:17:59 Myocardial infarct finding now present Left ventricular hypertrophy no longer present Electronically Signed On 02-07-24 15:57:09 SLUBBER RUNNER by Thomas Gutierrez
== END 2024-02-04 13:01 | disposition home or self-care (01) | DRG 280 ==
LOC: ER 13:03 → ERHOLD 15:11 → 4TH 16:19
PROVIDERS: ADMIT Hospitalist; ATTEND Internal Medicine
DX: I11.0 Hypertensive heart disease with heart failure (principal); I50.33 Acute on chronic diastolic (congestive) heart failure; I21.A1 Myocardial infarction type 2; F43.10 Post-traumatic stress disorder, unspecified; E11.40 Type 2 diabetes mellitus with diabetic neuropathy, unspecified; K21.9 Gastro-esophageal reflux disease without esophagitis; N40.0 Benign prostatic hyperplasia without lower urinary tract symptoms; I25.10 Atherosclerotic heart disease of native coronary artery without angina pectoris; Z88.0 Allergy status to penicillin; Z88.2 Allergy status to sulfonamides; Z95.1 Presence of aortocoronary bypass graft; Z87.891 Personal history of nicotine dependence; Z79.899 Other long term (current) drug therapy
CPT/HCPCS: 36415; 71045; 80048; 80076; 82947; 83735; 83880; 84439; 84443; 84484; 85025; 85610; 93005; 93306; 96374; 99285; J1650; J1940